=== PATIENT | male | born 1940 | race American Indian/Alaskan Native ===

== ENCOUNTER 2017-04-07 17:22 | Inpatient (IN) | payer OTHER, MEDICARE ==
[2017-04-07] MEDS ORDERED: Sodium Chloride 0.9% 500 ML IV ONE (18:45)
[2017-04-07 19:09] LABS: BASO % 0.2 % (0.0-2.0); EOS # 0.1 K/uL (0.0-0.7); EOS % 0.9 % (0.0-4.0); HEMATOCRIT 39.3 % (35.0-51.0); LYMPH # 1.4 K/uL (1.0-4.3); LYMPH % 12.6 % (20.0-40.0); MEAN CORPUSCULAR HEMOGLOBIN 29.1 pg (27.0-31.0); MEAN CORPUSCULAR HGB CONC 34.3 g/dL (33.0-37.0); MEAN PLATELET VOLUME 10.2 fL (7.2-11.7); MONO # 0.9 K/uL (0.0-0.8); MONO % 8.1 % (0.0-10.0); NRBC % 0.1 % (0.0-2.0); RED CELL DISTRIBUTION WIDTH 13.7 % (11.5-14.5); WHITE BLOOD COUNT 11.3 K/uL (4.8-10.8)
[2017-04-07 19:12] LABS: MEAN CELL VOLUME 84.9 fL (80.0-94.0)
[2017-04-07 19:16] LABS: CHLORIDE 95 mmol/L (98-107)
[2017-04-07 19:17] LABS: POTASSIUM 3.7 mmol/L (3.6-5.2); SODIUM 134 mmol/L (132-148)
[2017-04-07 19:19] LABS: ALB/GLOB RATIO 1.3 (1.0-2.1); ALKALINE PHOSPHATASE 106 U/L (38-126); ALT/SGPT 50 U/L (21-72); AST/SGOT 23 U/L (17-59); BILIRUBIN,TOTAL 1.2 mg/dL (0.2-1.3); BLOOD UREA NITROGEN 16 mg/dL (9-20); CARBON DIOXIDE 27 mmol/L (22-30); GFR AFRICAN-AMERICAN > 60; TOTAL PROTEIN 7.6 g/dL (6.3-8.3)
[2017-04-07 19:20] LABS: CALCIUM 8.6 mg/dl (8.6-10.4); GLUCOSE,RANDOM 95 mg/dL (75-110)
[2017-04-07 19:22] LABS: URINE BACTERIA RARE (<OCC); URINE BILIRUBIN NEGATIVE (NEGATIVE); URINE BLOOD NEGATIVE (NEGATIVE); URINE COLOR Amber (YELLOW); URINE GLUCOSE (UA) NORMAL (Normal); URINE KETONE 1+ mg/dL (NEGATIVE); URINE LEUKOCYTE ESTERASE NEG Leu/uL (Negative); URINE PROTEIN 2+ mg/dL (NEGATIVE); WBC URINE 2 /hpf (0-5)
[2017-04-07 19:35] LABS: RBC URINE 4 /hpf (0-3)
[2017-04-07] MEDS ORDERED: Iodixanol 320 MG/ML 100 ML BOTTLE IV ONE (20:30)
--- NOTE | 2017-04-07 20:31 | C.PDOC ---
History Of Present Illness 76 year old male sent to the ED by his PMD Dr. Edith Sheldon for constant LLQ pain that sometimes radiates to his left back since Friday. Patient denies fever, dysuria, hematuria, nausea, vomiting, diarrhea, or prior episodes of similar kind of pain. PMD Dr. Vee Time Seen by Provider: 04/07/17 18:17 Chief Complaint (Nursing): Abdominal Pain History Per: Patient History/Exam Limitations: no limitations Onset/Duration Of Symptoms: Days Current Symptoms Are (Timing): Gone Severity: Mild Location Of Pain/Discomfort: LLQ Radiation Of Pain To:: Back (Occasional) Quality Of Discomfort: "Pain" Associated Symptoms: Back Pain, Urinary Symptoms. denies: Fever, Nausea, Vomiting, Diarrhea Exacerbating Factors: None Alleviating Factors: None Recent travel outside of the [place]: No Additional History Per: Patient Past Medical History Reviewed: Historical Data, Nursing Documentation, Vital Signs Vital Signs: Last Vital Signs Temp 98.1 F 04/11/17 07:52 Pulse 77 04/11/17 07:52 Resp 20 04/11/17 07:52 BP 133/72 04/11/17 07:52 Pulse Ox 97 04/11/17 07:52 - Medical History PMH: No Chronic Diseases Surgical History: No Surg Hx Family History: States: No Known Family Hx - Social History Hx Alcohol Use: No Hx Substance Use: No Review Of Systems Except As Marked, All Systems Reviewed And Found Negative. Constitutional: Negative for: Fever, Chills Cardiovascular: Negative for: Chest Pain, Palpitations Respiratory: Negative for: Shortness of Breath Gastrointestinal: Positive for: Abdominal Pain. Negative for: Nausea, Vomiting , Diarrhea Genitourinary: Negative for: Dysuria, Hematuria Musculoskeletal: Positive for: Back Pain (Occasional radiation) Physical Exam - Physical Exam Appears: Well, Non-toxic, No Acute Distress Skin: Normal Color, Warm, Dry Oral Mucosa: Moist Neck: Supple Cardiovascular: Rhythm Regular Respiratory: Normal Breath Sounds, No Accessory Muscle Use, No Rales, No Rhonchi , No Wheezing Gastrointestinal/Abdominal: Bowel Sounds, Soft, Tenderness (LLQ TTP), Guarding, No Other ((-) Mcburney's ) Back: No CVA Tenderness Extremity: Normal ROM, No Pedal Edema, No Swelling Neurological/Psych: Oriented x3 Gait: Steady ED Course And Treatment - Laboratory Results Result Diagrams: 04/11/17 07:14 04/11/17 07:14 O2 Sat by Pulse Oximetry: 98 (On RA) Pulse Ox Interpretation: Normal - CT Scan/US CT ABD/PELVIS Other Rad Studies (CT/US): Read By Radiologist, Radiology Report Reviewed CT/US Interpretation: Name: RINA PRADO Age: 76Years M Date: 04/07/2017. SSN: [id number] : 1940. Study: CT ABDOMEN/PELVIS W Requesting Physician: NATHEN COREAS. Images: 506. Addl Studies: Provided Clinical History: LLQ PAIN, R/O DIVERTICULITIS. CONFIDENTIALITY STATEMENT. This transmission is confidential and is intended to be a privileged communication. It is intended only for the use of the addressee. Access to this. message by anyone else is unauthorized. If you are not the intended recipient, any disclosure, copying, distribution or any action taken, or omitted to. be taken in reliance on it is prohibited and may be unlawful. If you received this communication in error, please notify us by telephone, so that return. of this document to us can be arranged. Page 1 of 3. Addendum created by Nany Hopper MD on 04/07/2017 10:27 PM Eastern Time ( [place]). THIS REPORT CONTAINS FINDINGS THAT MAY BE CRITICAL TO PATIENT CARE. The findings. were received by NATHEN COREAS at 10:27 PM EST on 2016. Initial Report created on 04/07/2017 10:22 PM Eastern Time ([place]) . EXAM: CT Abdomen and Pelvis With Intravenous Contrast. CLINICAL HISTORY: 76 years old, male; Pain; Abdominal pain; Generalized; Additional info: Llq pain , R/O diverticulitis. TECHNIQUE: Axial computed tomography images of the abdomen and pelvis with intravenous contrast. All CT. scans at this facility use one or more dose reduction techniques, viz.: automated exposure control;. ma/kV adjustment per patient size (including targeted exams where dose is matched to indication; i.e. head); or iterative reconstruction technique. Coronal and sagittal reformatted images were created and reviewed. CONTRAST: 100 mL of visipaque administered intravenously. COMPARISON: No relevant prior studies available. [facility] Report [id number]. Name: RINA PRADO Age: 76Years M Date: 04/07/2017. SSN: [id number] : 1940. Study: CT ABDOMEN/PELVIS W Requesting Physician: NATHEN COREAS. Images: 506. Addl Studies: Provided Clinical History: LLQ PAIN, R/O DIVERTICULITIS. CONFIDENTIALITY STATEMENT. This transmission is confidential and is intended to be a privileged communication. It is intended only for the use of the addressee. Access to this. message by anyone else is unauthorized. If you are not the intended recipient, any disclosure, copying, distribution or any action taken, or omitted to. be taken in reliance on it is prohibited and may be unlawful. If you received this communication in error, please notify us by telephone, so that return. of this document to us can be arranged. Page 2 of 3. FINDINGS: Lower thorax: The bilateral lung bases are clear. ABDOMEN: Liver: Steatosis. Indeterminate focus of decreased attenuation within segment 6 of the liver (series 3,. image 61) for which dedicated ultrasound versus contrast-enhanced MRI is recommended with liver. mass protocol. Gallbladder and bile ducts: The gallbladder is minimally distended, without calcified stones. No. significant intra- or extrahepatic biliary ductal dilation. Pancreas: Enhances homogeneously. No ductal dilation. No discrete mass. Spleen : No acute findings. Adrenals: No acute findings. Kidneys and ureters: No acute findings. No hydronephrosis or renal calculi. No discrete solid mass. PELVIS: Bladder: Moderate bladder wall thickening, possibly related to underdistention. Reproductive: No acute findings. Appendix: The air filled appendix is of normal caliber (series 3, image 116) . ABDOMEN and PELVIS: Stomach and bowel: No obstruction. Moderate mural thickening within the sigmoid colon, with a. contained perforation (series 601, image 48) without a drainable fluid collection. Fat-containing left. inguinal hernia. Peritoneum: As above. Lymph nodes: Multiple enlarged lymph nodes within the pelvis, possibly reactive. Vasculature: Calcified atherosclerotic disease. Bones: No acute fracture. [facility] [id number]. Name: RINA PRADO Age: 76Years M Date: 04/07/2017. SSN: [id number] : 1940. Study: CT ABDOMEN/PELVIS W Requesting Physician: NATHEN COREAS. Images: 506. Addl Studies: Provided Clinical History: LLQ PAIN, R/O DIVERTICULITIS. CONFIDENTIALITY STATEMENT. This transmission is confidential and is intended to be a privileged communication. It is intended only for the use of the addressee. Access to this. message by anyone else is unauthorized. If you are not the intended recipient, any disclosure, copying, distribution or any action taken, or omitted to. be taken in reliance on it is prohibited and may be unlawful. If you received this communication in error, please notify us by telephone, so that return. of this document to us can be arranged. Page 3 of 3. IMPRESSION: Findings within the sigmoid colon most consistent with acute diverticulitis with a contained perforation,. without a drainable fluid collection. Follow up to resolution is recommended, as a malignancy may. have a similar appearance. Indeterminate focus within segment 6 of the liver for which dedicated ultrasound versus contrastenhanced. MRI is recommended (with liver mass protocol). Thank you for allowing us to participate in the care of your patient. Dictated and Authenticated by: Nany Hopper MD. 04/07/2017 10:22 PM Eastern Time ([place]) Progress Note: Plan: Blood work, UA, CT scan abd/pelvis. IV NS bolus given, patient did not want pain medication. IV Cipro + IV Flagyl ordered for acute diverticulitis. - Physician Consult Information Physician Contacted: Chapincito Arredondo Outcome Of Conversation: Discussed patient with hospitalist, agrees with admission to service for acute diverticulitis. Dr. Salazar target aircraft controller surgeon consulted - resident spoken with and aware. Disposition - Disposition Disposition: HOSPITALIZED Disposition Time: 22:30 Condition: STABLE - Clinical Impression Clinical Impression: Diverticulitis, Perforation bowel - Scribe Statement The provider has reviewed the documentation as recorded by the Scribe Chauncey Tovar All medical record entries made by the Scribe were at my direction and personally dictated by me. I have reviewed the chart and agree that the record accurately reflects my personal performance of the history, physical exam, medical decision making, and the department course for this patient. I have also personally directed, reviewed, and agree with the discharge instructions and disposition. Decision To Admit - Pt Status Changed To: Hospital Disposition Of: Inpatient - Admit Certification Admit to Inpatient:: After my assessment, the patient will require hospitalization for at least two midnights. This is because of the severity of symptoms shown, intensity of services needed, and/or the medical risk in this patient being treated as an outpatient. - InPatient: Physician Admission Certification:: see notes - . Bed Request Type: Regular Admitting Physician: Chapincito Arredondo Patient Diagnosis: Diverticulitis, Perforation bowel
--- NOTE | 2017-04-07 22:22 | CT ---
EXAM: CT Abdomen and Pelvis With Intravenous Contrast CLINICAL HISTORY: 76 years old, male; Pain; Abdominal pain; Generalized; Additional info: Llq pain, R/O diverticulitis TECHNIQUE: Axial computed tomography images of the abdomen and pelvis with intravenous contrast. All CT scans at this facility use one or more dose reduction techniques, viz.: automated exposure control; ma/kV adjustment per patient size (including targeted exams where dose is matched to indication; i.e. head); or iterative reconstruction technique. Coronal and sagittal reformatted images were created and reviewed. CONTRAST: 100 mL of visipaque administered intravenously. COMPARISON: No relevant prior studies available. FINDINGS: Lower thorax: The bilateral lung bases are clear. ABDOMEN: Liver: Steatosis. Indeterminate focus of decreased attenuation within segment 6 of the liver (series 3, image 61) for which dedicated ultrasound versus contrast-enhanced MRI is recommended with liver mass protocol. Gallbladder and bile ducts: The gallbladder is minimally distended, without calcified stones. No significant intra- or extrahepatic biliary ductal dilation. Pancreas: Enhances homogeneously. No ductal dilation. No discrete mass. Spleen: No acute findings. Adrenals: No acute findings. Kidneys and ureters: No acute findings. No hydronephrosis or renal calculi. No discrete solid mass. PELVIS: Bladder: Moderate bladder wall thickening, possibly related to underdistention. Reproductive: No acute findings. Appendix: The air filled appendix is of normal caliber (series 3, image 116) . ABDOMEN and PELVIS: Stomach and bowel: No obstruction. Moderate mural thickening within the sigmoid colon, with a contained perforation (series 601, image 48) without a drainable fluid collection. Fat-containing left inguinal hernia. Peritoneum: As above. Lymph nodes: Multiple enlarged lymph nodes within the pelvis, possibly reactive. Vasculature: Calcified atherosclerotic disease. Bones: No acute fracture. IMPRESSION: Findings within the sigmoid colon most consistent with acute diverticulitis with a contained perforation, without a drainable fluid collection. Follow up to resolution is recommended, as a malignancy may have a similar appearance. Indeterminate focus within segment 6 of the liver for which dedicated ultrasound versus contrast-enhanced MRI is recommended (with liver mass protocol).
[2017-04-07] MEDS ORDERED: Ciprofloxacin 400mg/200ml D5W 400 MG/200 ML BAG IV STA (22:25)
[2017-04-07] MEDS ORDERED: metroNIDAZOLE IV 500 mg/100 ml 500 MG/100 ML BAG IVPB STA (22:25)
[2017-04-07] MEDS ORDERED: Ciprofloxacin 400mg/200ml D5W 400 MG/200 ML BAG IVPB ONE (22:51)
[2017-04-07] MEDS ORDERED: metroNIDAZOLE IV 500 mg/100 ml 500 MG/100 ML BAG ONE (22:51)
--- NOTE | 2017-04-07 23:15 | CP.PCM.HP ---
Addendum entered and electronically signed by Cal Cool DO 04/08/17 04:39: Addendum to plan: Disregard Sepsis - pt does not meet criteria of WBC > 12 Addition to plan: Elevated BP Pt denies hx of HTN, possibly due to pain/stress Currently above diabetic BP goal Pt unsure of home medications - family will bring in tomorrow Consider starting TOMAS/ARB if pressures remain elevated, and pt not already on one Original Note: <Cal Cool - Last Filed: 04/08/17 01:06> History of Present Illness - History of Present Illness History of Present Illness: CC: "My belly hurts down low on the left" HPI: Patient is a 76 year old AA male, with PMHx of constipation, type two diabetes mellitus and glaucoma, who presents to [facility] for abdominal pain at direction of his PMD. Patient reports pain began on Friday while he was at work , and is located in his LLQ with occasional radiation to his lower back. He states the pain originally on Friday would come and go with worst severity as "3 /10." However over the weekend and into Friday the pain gradually became constant and was 8-9/10 this afternoon. He describes the pain as a "dull, aching pain that becomes sharp when you touch it" and admits to "feeling like something is in there." Patient reports long history of constipation, and attempted to ameliorate symptoms by giving himself a fleet enema. He states he moves his bowels "every 2-3 days" and has to really strain to void. He admits last BM was on , and denies blood in stool/toilet paper/or toilet bowl. He admits passing gas today. Patient reports seeing Dr. Son as GI, who performed last colonoscopy in 2016, which showed diverticula. He admits feeling hungry, but states he has not been eating much "because he does not want to make the pain worse." Patient denies any fever, chills, dysuria, hematuria, hematochezia, nausea, vomit, diarrhea, weight loss, or prior episodes of similar kind of pain. Patient denies any trauma to the area or lifting heavy object at work. PMD: Dr. Mahnaz Sheldon GI: Dr. 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 absent: Bloating, Diarrhea, Hematemesis, Hematochezia, Nausea, Vomiting - Genitourinary Genitourinary: absent: Difficulty Urinating, Dysuria - Musculoskeletal Musculoskeletal: absent: Back Pain, Numbness, Tingling - Integumentary Integumentary: absent: Dry Skin, Wounds - Neurological Neurological: absent: Numbness, Tingling, Weakness - Psychiatric Psychiatric: absent: Anxiety, Depression - Endocrine Endocrine: absent: Polydipsia, Polyphagia, Polyuria Past Patient History - Past Social History Smoking Status: Never Smoked - ENDOCRINE/METABOLIC Hx Diabetes Mellitus Type 2: Yes - PSYCHIATRIC Hx Substance Use: No - SURGICAL HISTORY Hx Surgeries: No - ANESTHESIA Hx Anesthesia: No Meds Allergies/Adverse Reactions: Allergies Allergy/AdvReac Type Severity Reaction Status Date / Time No Known Allergies Allergy Unverified 06/24/13 10:50 Physical Exam - Constitutional Appears: Non-toxic, No Acute Distress - Head Exam Head Exam: ATRAUMATIC, NORMOCEPHALIC - Eye Exam Eye Exam: EOMI, Normal appearance. absent: Scleral icterus Pupil Exam: PERRL - ENT Exam ENT Exam: Mucous Membranes Moist - Respiratory Exam Respiratory Exam: Clear to Auscultation Bilateral, NORMAL BREATHING PATTERN. absent: Rales, Rhonchi, Wheezes - Cardiovascular Exam Cardiovascular Exam: Tachycardia, +S1, +S2 - GI/Abdominal Exam GI & Abdominal Exam: Hernia (left inguinal), Normal Bowel Sounds, Soft, Tenderness (mild LLQ). absent: Distended, Guarding, Mass, Rigid Additional comments: left inguinal hernia appreciated Negative mcburney's/psoas sign/rovsing - Rectal Exam Rectal Exam: absent: Black Stool, Bloody Stool Additional comments: Hemoccult performed at bedside: negative - Extremities Exam Extremities exam: Positive for: normal inspection, pedal pulses present. Negative for: calf tenderness, pedal edema - Back Exam Back exam: absent: CVA tenderness (L), CVA tenderness (R) - Neurological Exam Neurological exam: Alert, Oriented x3 - Psychiatric Exam Psychiatric exam: Normal Affect, Normal Mood - Skin Skin Exam: Normal Color, Warm Results - Vital Signs Recent Vital Signs: Last Vital Signs Temp 98.8 F 04/07/17 22:23 Pulse 97 H 04/07/17 22:23 Resp 20 04/07/17 22:23 BP 161/83 H 04/07/17 22:23 Pulse Ox 98 04/07/17 23:03 - Labs Result Diagrams: 04/07/17 19:04 04/07/17 19:04 Labs: Laboratory Results - last 24 hr 04/07/17 04/07/17 04/07/17 19:04 19:04 19:14 WBC 11.3 H RBC 4.63 Hgb 13.5 Hct 39.3 MCV 84.9 D MCH 29.1 MCHC 34.3 RDW 13.7 Plt Count 216 MPV 10.2 Neut % (Auto) 78.2 H Lymph % (Auto) 12.6 L [place] % (Auto) 8.1 Eos % (Auto) 0.9 Baso % (Auto) 0.2 Neut # 8.8 H Lymph # 1.4 [place] # 0.9 H Eos # 0.1 Baso # 0.0 Sodium 134 Potassium 3.7 Chloride 95 L Carbon Dioxide 27 Anion Gap 16 BUN 16 Creatinine 0.9 Est GFR ( Amer) > 60 Est GFR (Non-Af Amer) > 60 Random Glucose 95 Calcium 8.6 Total Bilirubin 1.2 AST 23 ALT 50 Alkaline Phosphatase 106 Total Protein 7.6 Albumin 4.2 Globulin 3.3 Albumin/Globulin Ratio 1.3 Lipase 16 L Urine Color Imelda Urine Clarity Hazy Urine pH 5.0 Ur Specific [place] 1.028 Urine Protein 2+ H Urine Glucose (UA) Normal Urine Ketones 1+ H Urine Blood Negative Urine Nitrate Negative Urine Bilirubin Negative Urine Urobilinogen 2.0 Ur Leukocyte Esterase Neg Urine WBC (Auto) 2 Urine RBC (Auto) 4 H Urine Bacteria Rare Hyaline Casts 6-10 H Assessment & Plan - Assessment and Plan (Free Text) Plan: Sepsis Criteria: HR>90, WBC 11.3 Source: Diverticulitis w perforation Lactate 0.8 Cipro 400mg IV Q12H Flagyl 500mg IV Q8H Morphine 2mg IV Q4H PRN Zofran 4mg IV Q4H PRN f/u Blood, Urine Culture Diverticulitis with perforation Admit to med/surg Afebrile, WBC: 11.3 NPO Diet Surgical consult: Dr. Salazar, help appreciated GI Medicare Sales Executive: Dr. Son CT A/P: acute diverticulitis of sigmoid colon with contained perforation, without a drainable fluid collection; fat containing left inguinal hernia Lipase 16 Cipro 400mg IV Q12H Flagyl 500mg IV Q8H Hemoccult negative at bedside - f/u fecal occult x 3 Leukocytosis WBC 11.3, with left shift, no bands Cipro 400mg IV Q12H Flagyl 500mg IV Q8H Type Two Diabetes Mellitus Home meds: Metformin 500mg PO BID, Glipizide (pt does not know dose) Pt received IV contrast, so hold Metformin x 48 hrs Pt NPO so holding both PO diabetes meds D5/1/2 NS @ 80cc/hr RADHA Accuchecks Hypoglycemia protocol Left inguinal hernia CT A/P: acute diverticulitis of sigmoid colon with contained perforation, without a drainable fluid collection; fat containing left inguinal hernia Liver Foci CT A/P: Indeterminate liver foci within segment 6 of liver for which US vs contrast MRI is recommended (with liver mass protocol) - f/u US Hx of glaucoma Pt unsure of eye drops, will bring from home Proteinuria UA: 2+ protein History of diabetes - pt unsure if on TOMAS inhibitor - will bring home meds Prophylaxis Heparin (Held at this time due to chance of emergent surgical procedure) SCDs Protonix 40mg IV Daily Will call pharmacy for meds as pt unsure Cal Cool PGY-2 Discussed with vinicius Reyes <Arredondo,[place] A - Last Filed: 04/08/17 06:32> Results - Vital Signs Recent Vital Signs: Last Vital Signs Temp 97.8 F 04/08/17 05:52 Pulse 89 04/08/17 05:52 Resp 20 04/08/17 05:52 BP 150/84 04/08/17 05:52 Pulse Ox 98 04/08/17 05:52 - Labs Result Diagrams: 04/08/17 04:52 04/08/17 04:52 Labs: Laboratory Results - last 24 hr 04/07/17 04/07/17 04/07/17 19:04 19:04 19:14 WBC 11.3 H RBC 4.63 Hgb 13.5 Hct 39.3 MCV 84.9 D MCH 29.1 MCHC 34.3 RDW 13.7 Plt Count 216 MPV 10.2 Neut % (Auto) 78.2 H Lymph % (Auto) 12.6 L [place] % (Auto) 8.1 Eos % (Auto) 0.9 Baso % (Auto) 0.2 Neut # 8.8 H Lymph # 1.4 [place] # 0.9 H Eos # 0.1 Baso # 0.0 Neutrophils % (Manual) Band Neutrophils % Lymphocytes % (Manual) Monocytes % (Manual) Platelet Estimate pO2 VBG pH VBG pCO2 VBG HCO3 VBG Total CO2 VBG O2 Sat (Calc) VBG Base Excess VBG Potassium Glucose Lactate Sodium 134 Potassium 3.7 Chloride 95 L Carbon Dioxide 27 Anion Gap 16 BUN 16 Creatinine 0.9 Est GFR ( Amer) > 60 Est GFR (Non-Af Amer) > 60 POC Glucose (mg/dL) Random Glucose 95 Hemoglobin A1c Calcium 8.6 Phosphorus Magnesium Total Bilirubin 1.2 AST 23 ALT 50 Alkaline Phosphatase 106 Total Protein 7.6 Albumin 4.2 Globulin 3.3 Albumin/Globulin Ratio 1.3 Triglycerides Cholesterol LDL Cholesterol Direct HDL Cholesterol Lipase 16 L Free T4 Venous Blood Potassium Urine Color Imelda Urine Clarity Hazy Urine pH 5.0 Ur Specific [place] 1.028 Urine Protein 2+ H Urine Glucose (UA) Normal Urine Ketones 1+ H Urine Blood Negative Urine Nitrate Negative Urine Bilirubin Negative Urine Urobilinogen 2.0 Ur Leukocyte Esterase Neg Urine WBC (Auto) 2 Urine RBC (Auto) 4 H Urine Bacteria Rare Hyaline Casts 6-10 H 04/07/17 04/08/17 04/08/17 23:36 00:41 04:52 WBC 8.8 RBC 4.29 L Hgb 12.5 Hct 36.5 MCV 85.0 MCH 29.1 MCHC 34.3 RDW 13.8 Plt Count 200 MPV 10.1 Neut % (Auto) 80.7 H Lymph % (Auto) 9.2 L [place] % (Auto) 8.6 Eos % (Auto) 1.1 Baso % (Auto) 0.4 Neut # 7.1 H Lymph # 0.8 L [place] # 0.8 Eos # 0.1 Baso # 0.0 Neutrophils % (Manual) 87 H Band Neutrophils % 1 Lymphocytes % (Manual) 7 L Monocytes % (Manual) 5 Platelet Estimate Normal pO2 61 H VBG pH 7.39 VBG pCO2 39 L VBG HCO3 23.8 VBG Total CO2 24.8 VBG O2 Sat (Calc) 93.2 H VBG Base Excess -1.2 L VBG Potassium 3.3 L Glucose 112 H Lactate 0.8 Sodium 137.0 Potassium Chloride 105.0 Carbon Dioxide Anion Gap BUN Creatinine Est GFR ( Amer) Est GFR (Non-Af Amer) POC Glucose (mg/dL) 92 Random Glucose Hemoglobin A1c Calcium Phosphorus Magnesium Total Bilirubin AST ALT Alkaline Phosphatase Total Protein Albumin Globulin Albumin/Globulin Ratio Triglycerides Cholesterol LDL Cholesterol Direct HDL Cholesterol Lipase Free T4 Venous Blood Potassium 3.3 L Urine Color Urine Clarity Urine pH Ur Specific [place] Urine Protein Urine Glucose (UA) Urine Ketones Urine Blood Urine Nitrate Urine Bilirubin Urine Urobilinogen Ur Leukocyte Esterase Urine WBC (Auto) Urine RBC (Auto) Urine Bacteria Hyaline Casts 04/08/17 04/08/17 04/08/17 04:52 04:52 04:52 WBC RBC Hgb Hct MCV MCH MCHC RDW Plt Count MPV Neut % (Auto) Lymph % (Auto) [place] % (Auto) Eos % (Auto) Baso % (Auto) Neut # Lymph # [place] # Eos # Baso # Neutrophils % (Manual) Band Neutrophils % Lymphocytes % (Manual) Monocytes % (Manual) Platelet Estimate pO2 VBG pH VBG pCO2 VBG HCO3 VBG Total CO2 VBG O2 Sat (Calc) VBG Base Excess VBG Potassium Glucose Lactate Sodium 133 Potassium 3.5 L Chloride 98 Carbon Dioxide 24 Anion Gap 15 BUN 14 Creatinine 0.7 L Est GFR ( Amer) > 60 Est GFR (Non-Af Amer) > 60 POC Glucose (mg/dL) Random Glucose 152 H Hemoglobin A1c 8.8 H Calcium 8.2 L Phosphorus 3.4 Magnesium 1.8 Total Bilirubin 1.0 AST 23 ALT 48 Alkaline Phosphatase 98 Total Protein 7.5 Albumin 3.7 Globulin 3.9 Albumin/Globulin Ratio 0.9 L Triglycerides 83 Cholesterol 153 LDL Cholesterol Direct 102 HDL Cholesterol 27 L Lipase Free T4 1.19 Venous Blood Potassium Urine Color Urine Clarity Urine pH Ur Specific [place] Urine Protein Urine Glucose (UA) Urine Ketones Urine Blood Urine Nitrate Urine Bilirubin Urine Urobilinogen Ur Leukocyte Esterase Urine WBC (Auto) Urine RBC (Auto) Urine Bacteria Hyaline Casts Assessment & Plan - Date & Time Date: 04/08/17 (I have seen and examined the patient. I agree with the findings and plan of care as documented by Dr. Cool. Patient with diverticulitis and perf. Surgery consulted. Cipro and Flagyl. Monitor for signs and symptoms for sepsis. Check blood cultures. History of diabetes. NPO. D5 NS IVF. Monitor BS for hypoglycemia due to hypoglycemia and adjust IVF accordingly. Monitor for acute changes.) Time: 06:30 Attending/Attestation - Attestation I have personally seen and examined this patient.: Yes I have fully participated in the care of the patient.: Yes I have reviewed all pertinent clinical information: Yes
--- NOTE | 2017-04-07 23:29 | CP.PCM.CON ---
<Arti Stokes - Last Filed: 04/08/17 06:56> History of Present Illness - History of Present Illness History of Present Illness: GENERAL SURGERY CONSULT NOTE FOR DR. SALAZAR 76yo M with PMHx of DM presents to the ED with LLQ abdominal pain. the pain began on Friday and was severe, steady pain. The pain has gotten better since then. He saw his PMD Dr. Edith Sheldon in the office who sent him to the ED for possible diverticulitis. Patient denies nausea, vomiting, diarrhea. Last BM was yesterday after an enema. He did the enema because he thought constipation might be the cause of his pain. Patient states he is hungry and is requesting a diet. Patient ambulating in the halls of the ED. He refused pain medication in the ED. The patient denies ever having diverticulitis before. He had a colonoscopy last year at [facility] and was told he had "pockets on his colon" at that time. 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 of Systems - Review of Systems All systems: reviewed and no additional remarkable complaints except (as per HPI ) Past Patient History - Past Social History Smoking Status: Never Smoked - ENDOCRINE/METABOLIC Hx Diabetes Mellitus Type 2: Yes - PSYCHIATRIC Hx Substance Use: No - SURGICAL HISTORY Hx Surgeries: No - ANESTHESIA Hx Anesthesia: No Meds Allergies/Adverse Reactions: Allergies Allergy/AdvReac Type Severity Reaction Status Date / Time No Known Allergies Allergy Unverified 06/24/13 10:50 - Medications Medications: Current Medications Ciprofloxacin (Cipro 400mg/200ml Dsw) 400 mg in 200 mls @ 133.333 mls/hr IV STAT STA Stop: 04/07/17 23:54 Physical Exam - Constitutional Appears: Well, Non-toxic, No Acute Distress - Head Exam Head Exam: ATRAUMATIC, NORMAL INSPECTION - Eye Exam Eye Exam: EOMI, Normal appearance - Respiratory Exam Respiratory Exam: NORMAL BREATHING PATTERN. absent: Respiratory Distress - Cardiovascular Exam Cardiovascular Exam: Tachycardia (mild), +S1, +S2 - GI/Abdominal Exam GI & Abdominal Exam: Hernia (left inguinal hernia), Soft, Tenderness (mild tenderness LLQ). absent: Distended, Firm, Guarding, Rebound, Rigid - Extremities Exam Additional comments: No LE edema - Neurological Exam Neurological exam: Alert, CN II-XII Intact, Oriented x3 - Psychiatric Exam Psychiatric exam: Normal Affect, Normal Mood - Skin Skin Exam: Dry, Normal Color, Warm Results - Vital Signs Recent Vital Signs: Last Vital Signs Temp 98.8 F 04/07/17 22:23 Pulse 97 H 04/07/17 22:23 Resp 20 04/07/17 22:23 BP 161/83 H 04/07/17 22:23 Pulse Ox 98 04/07/17 23:22 - Labs Result Diagrams: 04/07/17 19:04 04/07/17 19:04 Labs: Laboratory Results - last 24 hr 04/07/17 04/07/17 04/07/17 19:04 19:04 19:14 WBC 11.3 H RBC 4.63 Hgb 13.5 Hct 39.3 MCV 84.9 D MCH 29.1 MCHC 34.3 RDW 13.7 Plt Count 216 MPV 10.2 Neut % (Auto) 78.2 H Lymph % (Auto) 12.6 L [place] % (Auto) 8.1 Eos % (Auto) 0.9 Baso % (Auto) 0.2 Neut # 8.8 H Lymph # 1.4 [place] # 0.9 H Eos # 0.1 Baso # 0.0 Sodium 134 Potassium 3.7 Chloride 95 L Carbon Dioxide 27 Anion Gap 16 BUN 16 Creatinine 0.9 Est GFR ( Amer) > 60 Est GFR (Non-Af Amer) > 60 Random Glucose 95 Calcium 8.6 Total Bilirubin 1.2 AST 23 ALT 50 Alkaline Phosphatase 106 Total Protein 7.6 Albumin 4.2 Globulin 3.3 Albumin/Globulin Ratio 1.3 Lipase 16 L Urine Color Imelda Urine Clarity Hazy Urine pH 5.0 Ur Specific [place] 1.028 Urine Protein 2+ H Urine Glucose (UA) Normal Urine Ketones 1+ H Urine Blood Negative Urine Nitrate Negative Urine Bilirubin Negative Urine Urobilinogen 2.0 Ur Leukocyte Esterase Neg Urine WBC (Auto) 2 Urine RBC (Auto) 4 H Urine Bacteria Rare Hyaline Casts 6-10 H Assessment & Plan - Assessment and Plan (Free Text) Assessment: 76yo M with PMHx of DM presents with LLQ abdominal pain and was found to have diverticulitis with contained perforation - Afebrile, VSS - Mild leukocytosis WBC 11.3, will recheck CBC in AM - CT: acute diverticulitis of sigmoid colon with contained perforation, without a drainable fluid collection; fat containing left inguinal hernia - NPO, bowel rest - IV fluids - IV Abx: Cipro & Flagyl - Serial abdominal exams - Will discuss plan with Dr. Martin Stokes PGY-3 <Juan M Salazar - Last Filed: 04/09/17 19:57> Meds - Medications Medications: Current Medications Docusate Sodium (Colace) 100 mg PO BID [facility] Last Admin: 04/09/17 18:21 Dose: 100 mg Ciprofloxacin (Cipro 400mg/200ml Dsw) 400 mg in 200 mls @ 133 mls/hr IVPB Q12H [facility] Last Admin: 04/09/17 11:27 Dose: 133 mls/hr Metronidazole (Flagyl) 500 mg in 100 mls @ 100 mls/hr IVPB Q8 [facility] Last Admin: 04/09/17 14:45 Dose: 100 mls/hr Sodium Chloride (Sodium Chloride 0.9%) 1,000 mls @ 100 mls/hr IV .Q10H [facility] Last Admin: 04/09/17 18:35 Dose: 100 mls/hr Insulin Human Regular (Novolin R) 0 unit SC ACHS [facility] PRN Reason: Protocol Last Admin: 04/09/17 18:25 Dose: Not Given Lisinopril (Zestril) 2.5 mg PO DAILY [facility] Morphine Sulfate (Morphine) 2 mg IVP Q4 PRN PRN Reason: Pain, moderate (4-7) [id number] Ethyl Esters (Lovaza) 1 gm PO BID [facility] Last Admin: 04/09/17 18:22 Dose: 1 gm Ondansetron HCl (Zofran Inj) 4 mg IVP Q6 PRN PRN Reason: Nausea/Vomiting Pantoprazole Sodium (Protonix Inj) 40 mg IVP DAILY [facility] Potassium Chloride (K-Dur 20 Meq Er Tab) 40 meq PO Q2H [facility] Stop: 04/09/17 21:46 Saccharomyces Boulardii (Florastor) 250 mg PO BID [facility] Last Admin: 04/09/17 18:21 Dose: 250 mg Results - Vital Signs Recent Vital Signs: Last Vital Signs Temp 97.6 F 04/09/17 15:00 Pulse 84 04/09/17 15:00 Resp 20 04/09/17 15:00 BP 141/69 04/09/17 15:00 Pulse Ox 98 04/09/17 15:00 - Labs Result Diagrams: 04/09/17 07:49 04/09/17 16:42 Labs: Laboratory Results - last 24 hr 04/08/17 04/09/17 04/09/17 21:01 07:11 07:11 WBC RBC Hgb Hct MCV MCH MCHC RDW Plt Count MPV Neut % (Auto) Lymph % (Auto) [place] % (Auto) Eos % (Auto) Baso % (Auto) Neut # Lymph # [place] # Eos # Baso # Neutrophils % (Manual) Band Neutrophils % Lymphocytes % (Manual) Monocytes % (Manual) Eosinophils % (Manual) Platelet Estimate RBC Morphology Sodium Potassium Chloride Carbon Dioxide Anion Gap BUN Creatinine Est GFR ( Amer) Est GFR (Non-Af Amer) POC Glucose (mg/dL) 291 H 260 H 260 H Random Glucose Calcium Magnesium Total Bilirubin AST ALT Alkaline Phosphatase Total Protein Albumin Globulin Albumin/Globulin Ratio 04/09/17 04/09/17 04/09/17 07:49 11:19 13:52 WBC 7.8 RBC 4.51 Hgb 13.3 Hct 38.5 MCV 85.3 MCH 29.5 MCHC 34.6 RDW 13.7 Plt Count 216 MPV 10.0 Neut % (Auto) 80.6 H Lymph % (Auto) 9.2 L [place] % (Auto) 8.8 Eos % (Auto) 1.1 Baso % (Auto) 0.3 Neut # 6.3 Lymph # 0.7 L [place] # 0.7 Eos # 0.1 Baso # 0.0 Neutrophils % (Manual) 78 H Band Neutrophils % 1 Lymphocytes % (Manual) 7 L Monocytes % (Manual) 13 H Eosinophils % (Manual) 1 Platelet Estimate Normal RBC Morphology Normal Sodium Potassium Chloride Carbon Dioxide Anion Gap BUN Creatinine Est GFR ( Amer) Est GFR (Non-Af Amer) POC Glucose (mg/dL) > 500 H* Random Glucose Calcium Magnesium 1.7 Total Bilirubin AST ALT Alkaline Phosphatase Total Protein Albumin Globulin Albumin/Globulin Ratio 04/09/17 04/09/17 16:04 16:42 WBC RBC Hgb Hct MCV MCH MCHC RDW Plt Count MPV Neut % (Auto) Lymph % (Auto) [place] % (Auto) Eos % (Auto) Baso % (Auto) Neut # Lymph # [place] # Eos # Baso # Neutrophils % (Manual) Band Neutrophils % Lymphocytes % (Manual) Monocytes % (Manual) Eosinophils % (Manual) Platelet Estimate RBC Morphology Sodium 136 Potassium 3.3 L Chloride 98 Carbon Dioxide 29 Anion Gap 13 BUN 7 L Creatinine 0.7 L Est GFR ( Amer) > 60 Est GFR (Non-Af Amer) > 60 POC Glucose (mg/dL) 89 Random Glucose 74 L Calcium 8.3 L Magnesium Total Bilirubin 0.6 AST 17 D ALT 39 Alkaline Phosphatase 96 Total Protein 7.8 Albumin 3.7 Globulin 4.1 H Albumin/Globulin Ratio 0.9 L Attending/Attestation - Attestation I have personally seen and examined this patient.: Yes I have fully participated in the care of the patient.: Yes I have reviewed all pertinent clinical information: Yes Notes (Text): Pt was seen and examined at bedside Agree with above note and assessment Pt is with sigmoid diverticulitis Mild abdominal tenderness Labs and radiology reviewed Clear liquid diet repeat CBC in am C.w IV antibitics Plan d.w pt in detail. Risk and benefit explained in detail.
[2017-04-08 00:44] LABS: VENOUS BLOOD GAS BASE EXCESS -1.2 mmol/L (0.0-2.0); VENOUS BLOOD GAS PCO2 39 mmHg (40-60); VENOUS BLOOD PH 7.39 (7.32-7.43)
[2017-04-08] MEDS: Dextrose 5%/0.45% NS 1,000 ML IV SCH ×2 (01:09→15:31)
[2017-04-08 05:02] LABS: BASO % 0.4 % (0.0-2.0); EOS # 0.1 K/uL (0.0-0.7); EOS % 1.1 % (0.0-4.0); HEMATOCRIT 36.5 % (35.0-51.0); LYMPH # 0.8 K/uL (1.0-4.3); LYMPH % 9.2 % (20.0-40.0); MEAN CORPUSCULAR HEMOGLOBIN 29.1 pg (27.0-31.0); MEAN CORPUSCULAR HGB CONC 34.3 g/dL (33.0-37.0); MEAN PLATELET VOLUME 10.1 fL (7.2-11.7); MONO # 0.8 K/uL (0.0-0.8); MONO % 8.6 % (0.0-10.0); PLATELET COUNT 200 K/uL (130-400); RED CELL DISTRIBUTION WIDTH 13.8 % (11.5-14.5); WHITE BLOOD COUNT 8.8 K/uL (4.8-10.8)
[2017-04-08 05:06] LABS: CHLORIDE 98 mmol/L (98-107); POTASSIUM 3.5 mmol/L (3.6-5.2); SODIUM 133 mmol/L (132-148)
[2017-04-08 05:08] LABS: CARBON DIOXIDE 24 mmol/L (22-30); CHOLESTEROL 153 mg/dL (0-199); GFR AFRICAN-AMERICAN > 60
[2017-04-08 05:09] LABS: ALB/GLOB RATIO 0.9 (1.0-2.1); ALKALINE PHOSPHATASE 98 U/L (38-126); ALT/SGPT 48 U/L (21-72); AST/SGOT 23 U/L (17-59); BLOOD UREA NITROGEN 14 mg/dL (9-20); CALCIUM 8.2 mg/dl (8.6-10.4); GLUCOSE,RANDOM 152 mg/dL (75-110); PHOSPHOROUS 3.4 mg/dL (2.5-4.5); TOTAL PROTEIN 7.5 g/dL (6.3-8.3)
[2017-04-08 05:10] LABS: MAGNESIUM 1.8 mg/dL (1.6-2.3)
[2017-04-08 06:27] LABS: NEUTROPHIL 87 % (50-75); TOTAL CELLS COUNTED 100
[2017-04-08] MEDS ORDERED: metroNIDAZOLE IV 500 mg/100 ml 500 MG/100 ML BAG ONE (06:30)
[2017-04-08] MEDS: metroNIDAZOLE IV 500 mg/100 ml 500 MG/100 ML BAG IVPB SCH ×3 (06:33→21:32)
[2017-04-08] MEDS: (Novolin R) Insulin Human Regular 100 units/ml vial SC SCH ×4 (08:30→22:25)
--- NOTE | 2017-04-08 10:31 | CP.PCM.CON ---
History of Present Illness - History of Present Illness History of Present Illness: This is a 76 year old man admitted 04/07/2017 for abdominal pain. Patient is known to me from the office. He has had sigmoid diverticulosis and adenomatous colon polyps on colonoscopy done in 2009 and, most recently, 2015. He was in his usual state of health until Friday, three days prior to admission, when he noted sudden onset of lower abdominal pain, LLQ more than RLQ , vague, constant, not clearly related to defecation. The bowel movements were irregular, varying in size from small to large, and in consistency from soft to firm. He denies having rectal bleeding. The pain persisted, and he consulted his primary care physician, who instructed him to come to the ER. Evaluation in the ER included a CT scan, which showed diverticulitis with a contained perforation. He further denies having nausea, vomiting, difficulty swallowing, heartburn, and loss of appetite. He has lost 15 pounds in the past year. Review of Systems - Review of Systems All systems: reviewed and no additional remarkable complaints except - Constitutional Constitutional: absent: Chills, Fever - Cardiovascular Cardiovascular: absent: Chest Pain, Dyspnea - Respiratory Respiratory: absent: Cough, Wheezing - Gastrointestinal Gastrointestinal: Abdominal Pain, Constipation, Diarrhea. absent: Dysphagia, Heartburn, Hematochezia, Nausea, Vomiting - Genitourinary Genitourinary: absent: Difficulty Urinating Past Patient History - Past Social History Smoking Status: Never Smoked - ENDOCRINE/METABOLIC Hx Diabetes Mellitus Type 2: Yes - PSYCHIATRIC Hx Substance Use: No - SURGICAL HISTORY Hx Surgeries: No - ANESTHESIA Hx Anesthesia: No Meds Allergies/Adverse Reactions: Allergies Allergy/AdvReac Type Severity Reaction Status Date / Time No Known Allergies Allergy Unverified 06/24/13 10:50 - Medications Medications: Current Medications Ciprofloxacin (Cipro 400mg/200ml Dsw) 400 mg in 200 mls @ 133 mls/hr IVPB Q12H JOHAN Metronidazole (Flagyl) 500 mg in 100 mls @ 100 mls/hr IVPB Q8 JOHAN Last Admin: 04/08/17 06:33 Dose: 100 mls/hr Dextrose/Sodium Chloride (Dextrose 5%/0.45% Ns 1000 Ml) 1,000 mls @ 80 mls/hr IV .[id number] [facility] Last Admin: 04/08/17 01:09 Dose: 80 mls/hr Insulin Human Regular (Novolin R) 0 unit SC ACHS JOHAN PRN Reason: Protocol Last Admin: 04/08/17 08:30 Dose: Not Given Morphine Sulfate (Morphine) 2 mg IVP Q4 PRN PRN Reason: Pain, moderate (4-7) Ondansetron HCl (Zofran Inj) 4 mg IVP Q4 PRN PRN Reason: Nausea/Vomiting Physical Exam - Constitutional Appears: No Acute Distress - Head Exam Head Exam: ATRAUMATIC, NORMOCEPHALIC - Eye Exam Eye Exam: EOMI, PERRL - Neck Exam Neck exam: Negative for: Lymphadenopathy, Thyromegaly - Respiratory Exam Respiratory Exam: NORMAL BREATHING PATTERN. absent: Rales, Rhonchi, Wheezes - Cardiovascular Exam Cardiovascular Exam: REGULAR RHYTHM, +S1, +S2. absent: Gallop, Rubs, Systolic Murmur - GI/Abdominal Exam GI & Abdominal Exam: Guarding, Soft, Tenderness. absent: Mass, Organomegaly Additional comments: LLQ tenderness to palpation with guarding - Rectal Exam Rectal Exam: Deferred - Extremities Exam Extremities exam: Negative for: calf tenderness, pedal edema Results - Vital Signs Recent Vital Signs: Last Vital Signs Temp 97.8 F 04/08/17 05:52 Pulse 89 04/08/17 05:52 Resp 20 04/08/17 05:52 BP 150/84 04/08/17 05:52 Pulse Ox 98 04/08/17 05:52 - Labs Result Diagrams: 04/08/17 04:52 04/08/17 04:52 Labs: Laboratory Results - last 24 hr 04/07/17 04/07/17 04/07/17 19:04 19:04 19:14 WBC 11.3 H RBC 4.63 Hgb 13.5 Hct 39.3 MCV 84.9 D MCH 29.1 MCHC 34.3 RDW 13.7 Plt Count 216 MPV 10.2 Neut % (Auto) 78.2 H Lymph % (Auto) 12.6 L [place] % (Auto) 8.1 Eos % (Auto) 0.9 Baso % (Auto) 0.2 Neut # 8.8 H Lymph # 1.4 [place] # 0.9 H Eos # 0.1 Baso # 0.0 Neutrophils % (Manual) Band Neutrophils % Lymphocytes % (Manual) Monocytes % (Manual) Platelet Estimate pO2 VBG pH VBG pCO2 VBG HCO3 VBG Total CO2 VBG O2 Sat (Calc) VBG Base Excess VBG Potassium Glucose Lactate Sodium 134 Potassium 3.7 Chloride 95 L Carbon Dioxide 27 Anion Gap 16 BUN 16 Creatinine 0.9 Est GFR ( Amer) > 60 Est GFR (Non-Af Amer) > 60 POC Glucose (mg/dL) Random Glucose 95 Hemoglobin A1c Calcium 8.6 Phosphorus Magnesium Total Bilirubin 1.2 AST 23 ALT 50 Alkaline Phosphatase 106 Total Protein 7.6 Albumin 4.2 Globulin 3.3 Albumin/Globulin Ratio 1.3 Triglycerides Cholesterol LDL Cholesterol Direct HDL Cholesterol Lipase 16 L Free T4 TSH 3rd Generation Venous Blood Potassium Urine Color Imelda Urine Clarity Hazy Urine pH 5.0 Ur Specific [place] 1.028 Urine Protein 2+ H Urine Glucose (UA) Normal Urine Ketones 1+ H Urine Blood Negative Urine Nitrate Negative Urine Bilirubin Negative Urine Urobilinogen 2.0 Ur Leukocyte Esterase Neg Urine WBC (Auto) 2 Urine RBC (Auto) 4 H Urine Bacteria Rare Hyaline Casts 6-10 H 04/07/17 04/08/17 04/08/17 23:36 00:41 04:52 WBC 8.8 RBC 4.29 L Hgb 12.5 Hct 36.5 MCV 85.0 MCH 29.1 MCHC 34.3 RDW 13.8 Plt Count 200 MPV 10.1 Neut % (Auto) 80.7 H Lymph % (Auto) 9.2 L [place] % (Auto) 8.6 Eos % (Auto) 1.1 Baso % (Auto) 0.4 Neut # 7.1 H Lymph # 0.8 L [place] # 0.8 Eos # 0.1 Baso # 0.0 Neutrophils % (Manual) 87 H Band Neutrophils % 1 Lymphocytes % (Manual) 7 L Monocytes % (Manual) 5 Platelet Estimate Normal pO2 61 H VBG pH 7.39 VBG pCO2 39 L VBG HCO3 23.8 VBG Total CO2 24.8 VBG O2 Sat (Calc) 93.2 H VBG Base Excess -1.2 L VBG Potassium 3.3 L Glucose 112 H Lactate 0.8 Sodium 137.0 Potassium Chloride 105.0 Carbon Dioxide Anion Gap BUN Creatinine Est GFR ( Amer) Est GFR (Non-Af Amer) POC Glucose (mg/dL) 92 Random Glucose Hemoglobin A1c Calcium Phosphorus Magnesium Total Bilirubin AST ALT Alkaline Phosphatase Total Protein Albumin Globulin Albumin/Globulin Ratio Triglycerides Cholesterol LDL Cholesterol Direct HDL Cholesterol Lipase Free T4 TSH 3rd Generation Venous Blood Potassium 3.3 L Urine Color Urine Clarity Urine pH Ur Specific [place] Urine Protein Urine Glucose (UA) Urine Ketones Urine Blood Urine Nitrate Urine Bilirubin Urine Urobilinogen Ur Leukocyte Esterase Urine WBC (Auto) Urine RBC (Auto) Urine Bacteria Hyaline Casts 04/08/17 04/08/17 04/08/17 04:52 04:52 04:52 WBC RBC Hgb Hct MCV MCH MCHC RDW Plt Count MPV Neut % (Auto) Lymph % (Auto) [place] % (Auto) Eos % (Auto) Baso % (Auto) Neut # Lymph # [place] # Eos # Baso # Neutrophils % (Manual) Band Neutrophils % Lymphocytes % (Manual) Monocytes % (Manual) Platelet Estimate pO2 VBG pH VBG pCO2 VBG HCO3 VBG Total CO2 VBG O2 Sat (Calc) VBG Base Excess VBG Potassium Glucose Lactate Sodium 133 Potassium 3.5 L Chloride 98 Carbon Dioxide 24 Anion Gap 15 BUN 14 Creatinine 0.7 L Est GFR ( Amer) > 60 Est GFR (Non-Af Amer) > 60 POC Glucose (mg/dL) Random Glucose 152 H Hemoglobin A1c 8.8 H Calcium 8.2 L Phosphorus 3.4 Magnesium 1.8 Total Bilirubin 1.0 AST 23 ALT 48 Alkaline Phosphatase 98 Total Protein 7.5 Albumin 3.7 Globulin 3.9 Albumin/Globulin Ratio 0.9 L Triglycerides 83 Cholesterol 153 LDL Cholesterol Direct 102 HDL Cholesterol 27 L Lipase Free T4 1.19 TSH 3rd Generation 1.10 Venous Blood Potassium Urine Color Urine Clarity Urine pH Ur Specific [place] Urine Protein Urine Glucose (UA) Urine Ketones Urine Blood Urine Nitrate Urine Bilirubin Urine Urobilinogen Ur Leukocyte Esterase Urine WBC (Auto) Urine RBC (Auto) Urine Bacteria Hyaline Casts 04/08/17 08:09 WBC RBC Hgb Hct MCV MCH MCHC RDW Plt Count MPV Neut % (Auto) Lymph % (Auto) [place] % (Auto) Eos % (Auto) Baso % (Auto) Neut # Lymph # [place] # Eos # Baso # Neutrophils % (Manual) Band Neutrophils % Lymphocytes % (Manual) Monocytes % (Manual) Platelet Estimate pO2 VBG pH VBG pCO2 VBG HCO3 VBG Total CO2 VBG O2 Sat (Calc) VBG Base Excess VBG Potassium Glucose Lactate Sodium Potassium Chloride Carbon Dioxide Anion Gap BUN Creatinine Est GFR ( Amer) Est GFR (Non-Af Amer) POC Glucose (mg/dL) 146 H Random Glucose Hemoglobin A1c Calcium Phosphorus Magnesium Total Bilirubin AST ALT Alkaline Phosphatase Total Protein Albumin Globulin Albumin/Globulin Ratio Triglycerides Cholesterol LDL Cholesterol Direct HDL Cholesterol Lipase Free T4 TSH 3rd Generation Venous Blood Potassium Urine Color Urine Clarity Urine pH Ur Specific [place] Urine Protein Urine Glucose (UA) Urine Ketones Urine Blood Urine Nitrate Urine Bilirubin Urine Urobilinogen Ur Leukocyte Esterase Urine WBC (Auto) Urine RBC (Auto) Urine Bacteria Hyaline Casts Assessment & Plan (1) Diverticulitis of colon with perforation Assessment and Plan: Patient was admitted with LLQ and was found to have diverticulitis with a contained perforation. Recommend antibiotics, NPO for now. Repeat CT scan later in the week. Status: Acute
--- NOTE | 2017-04-08 11:21 | US ---
HISTORY: liver foci within segment 6 of liver seen on CT COMPARISON: None. TECHNIQUE: Sonographic evaluation of the right upper quadrant of the abdomen. FINDINGS: LIVER: Measures 16 cm in length. Borderline increased echogenicity of the liver parenchyma. In the right hepatic lobe there is a echogenic lesion measuring 1.2 x 0.9 x 1.6 cm in size. This is the CT correlate. Without any known history of cancer, a solitary hemangioma is favored. A solitary mucinous adenocarcinoma can simulate this but this would be less likely without supportive history. No intrahepatic bile duct dilatation. GALLBLADDER: Gallbladder sludge present. No gallstones. COMMON BILE DUCT: Measures 4 mm. No stones. No dilatation. PANCREAS: Unremarkable as visualized. No mass. No ductal dilatation. RIGHT KIDNEY: Measures 10.74.8 x 4.8 cm in length. Normal echogenicity. No calculus, mass, or hydronephrosis. AORTA: No aneurysmal dilatation. IVC: Unremarkable. OTHER FINDINGS: None . IMPRESSION: Re- right hepatic lobe lesion. Without supportive cancer history, a benign hemangioma is favored. Consider short-term follow-up imaging, with ultrasound, in 3 months if tissue sampling is deferred Gallbladder sludge. No stones. No dilated ducts. Possible mild diffuse fatty infiltration or other hepatic parenchymal pathology.
[2017-04-08] MEDS: Ciprofloxacin 400mg/200ml D5W 400 MG/200 ML BAG IVPB SCH ×2 (12:12→22:30)
--- NOTE | 2017-04-08 15:56 | CP.PCM.PN ---
<Terence Varghese - Last Filed: 04/08/17 15:49> Subjective - Date & Time of Evaluation Date of Evaluation: 04/08/17 Time of Evaluation: 15:49 - Subjective Subjective: Patient has been seen and examined. No overnight events reported. Denies any fever, chills, CP, or SOB. Patient has stated that his abdominal pain has slightly improved. Patient has appetite. Objective - Vital Signs/Intake and Output Vital Signs (last 24 hours): Temp Pulse Resp BP Pulse Ox 98.1 F 89 20 145/77 97 04/08/17 07:20 04/08/17 07:20 04/08/17 07:20 04/08/17 07:20 04/08/17 07:20 - Medications Medications: Current Medications Ciprofloxacin (Cipro 400mg/200ml Dsw) 400 mg in 200 mls @ 133 mls/hr IVPB Q12H [facility] Last Admin: 04/08/17 12:12 Dose: 133 mls/hr Metronidazole (Flagyl) 500 mg in 100 mls @ 100 mls/hr IVPB Q8 [facility] Last Admin: 04/08/17 15:00 Dose: 100 mls/hr Dextrose/Sodium Chloride (Dextrose 5%/0.45% Ns 1000 Ml) 1,000 mls @ 80 mls/hr IV .[id number] [facility] Last Admin: 04/08/17 15:31 Dose: Not Given Insulin Human Regular (Novolin R) 0 unit SC ACHS JOHAN PRN Reason: Protocol Last Admin: 04/08/17 12:06 Dose: Not Given Morphine Sulfate (Morphine) 2 mg IVP Q4 PRN PRN Reason: Pain, moderate (4-7) Ondansetron HCl (Zofran Inj) 4 mg IVP Q4 PRN PRN Reason: Nausea/Vomiting - Labs Labs: 04/08/17 04:52 04/08/17 04:52 - Additional Findings Additional findings: - Constitutional Appears: No Acute Distress - Head Exam Head Exam: ATRAUMATIC, NORMOCEPHALIC - Eye Exam Eye Exam: EOMI, PERRL - Neck Exam Neck exam: Negative for: Lymphadenopathy, Thyromegaly - Respiratory Exam Respiratory Exam: NORMAL BREATHING PATTERN. absent: Rales, Rhonchi, Wheezes - Cardiovascular Exam Cardiovascular Exam: REGULAR RHYTHM, +S1, +S2. absent: Gallop, Rubs, Systolic Murmur - GI/Abdominal Exam GI & Abdominal Exam: Guarding, Soft, Tenderness. absent: Mass, Organomegaly Additional comments: LLQ tenderness to palpation with guarding - Rectal Exam Rectal Exam: Deferred - Extremities Exam Extremities exam: Negative for: calf tenderness, pedal edema Assessment and Plan - Assessment and Plan (Free Text) Assessment: 76 year old AA male, with PMHx of constipation, type two diabetes mellitus and glaucoma admitted for evaluation and treatment of diverticulitis with contained perforation. Plan: Sepsis Criteria: HR>90, WBC 11.3 Source: Diverticulitis w perforation Lactate 0.8 Cipro 400mg IV Q12H Flagyl 500mg IV Q8H Morphine 2mg IV Q4H PRN Zofran 4mg IV Q4H PRN Blood and Urine Culture Pending Diverticulitis with perforation Admit to med/surg Afebrile, WBC: 11.3 NPO Diet Surgical consult: Dr. Salazar, help appreciated GI Pouncing Machine Operator: Dr. Son CT A/P: acute diverticulitis of sigmoid colon with contained perforation, without a drainable fluid collection; fat containing left inguinal hernia Lipase 16 Cipro 400mg IV Q12H Flagyl 500mg IV Q8H Morphine 2mg IV Q4H PRN Zofran 4mg IV Q4H PRN Hemoccult negative at bedside - f/u fecal occult x 3 (pending) Leukocytosis WBC 11.3, with left shift, no bands Cipro 400mg IV Q12H Flagyl 500mg IV Q8H Type Two Diabetes Mellitus Home meds: Metformin 500mg PO BID, Glipizide (pt does not know dose) Pt received IV contrast, so hold Metformin x 48 hrs Pt NPO so holding both PO diabetes meds D5/1/2 NS @ 80cc/hr RADHA Accuchecks Hypoglycemia protocol Left inguinal hernia CT A/P: acute diverticulitis of sigmoid colon with contained perforation, without a drainable fluid collection; fat containing left inguinal hernia Liver Foci CT A/P: Indeterminate liver foci within segment 6 of liver for which US vs contrast MRI is recommended (with liver mass protocol) US (04/08/17): Right Hepatic lobe lesion, 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 Recommend F /U in 3months. Hx of glaucoma Pt unsure of eye drops, will bring from home Proteinuria UA: 2+ protein History of diabetes - pt unsure if on TOMAS inhibitor - will bring home meds Prophylaxis Heparin (Held at this time due to chance of emergent surgical procedure) SCDs Protonix 40mg IV Daily Dispo: Will need to follow up on patients home meds. Patient will need a 3 month follow up for liver lobe lesion found on 04/08/17. Terence Varghese PGY-1 Patient Discussed with Attending <Gerald Beasley - Last Filed: 04/13/17 17:10> Objective - Vital Signs/Intake and Output Vital Signs (last 24 hours): Temp Pulse Resp BP Pulse Ox 98.8 F 75 20 138/71 99 04/13/17 16:00 04/13/17 16:00 04/13/17 16:00 04/13/17 16:00 04/13/17 16:00 Intake and Output: 04/13/17 04/13/17 06:59 18:59 Intake Total 2140 Output Total 800 Balance 1340 - Medications Medications: Current Medications Docusate Sodium (Colace) 100 mg PO TID [facility] Last Admin: 04/13/17 13:02 Dose: 100 mg Ciprofloxacin (Cipro 400mg/200ml Dsw) 400 mg in 200 mls @ 133 mls/hr IVPB Q12H [facility] Last Admin: 04/13/17 12:55 Dose: 133 mls/hr Metronidazole (Flagyl) 500 mg in 100 mls @ 100 mls/hr IVPB Q8 [facility] Last Admin: 04/13/17 13:02 Dose: 100 mls/hr Sodium Chloride (Sodium Chloride 0.9%) 1,000 mls @ 100 mls/hr IV .Q10H [facility] Last Admin: 04/13/17 12:56 Dose: Not Given Insulin Glargine (Lantus) 12 unit SC HS JOHAN Insulin Human Regular (Novolin R) 0 unit SC ACHS JOHAN PRN Reason: Protocol Last Admin: 04/13/17 12:54 Dose: 2 unit Lisinopril (Zestril) 2.5 mg PO DAILY [facility] Last Admin: 04/13/17 10:00 Dose: 2.5 mg Morphine Sulfate (Morphine) 2 mg IVP Q4 PRN PRN Reason: Pain, moderate (4-7) Curjy-2-Myyw Ethyl Esters (Lovaza) 1 gm PO BID [facility] Last Admin: 04/13/17 12:55 Dose: 1 gm Ondansetron HCl (Zofran Inj) 4 mg IVP Q6 PRN PRN Reason: Nausea/Vomiting Pantoprazole Sodium (Protonix Inj) 40 mg IVP DAILY [facility] Last Admin: 04/13/17 10:00 Dose: 40 mg Saccharomyces Boulardii (Florastor) 250 mg PO BID [facility] Last Admin: 04/13/17 10:00 Dose: 250 mg - Labs Labs: 04/13/17 08:23 04/13/17 08:23 Attending/Attestation - Attestation I have personally seen and examined this patient.: Yes I have fully participated in the care of the patient.: Yes I have reviewed all pertinent clinical information, including history, physical exam and plan: Yes Notes (Text): 76 year old AA male, with PMHx of constipation, type two diabetes mellitus and glaucoma admitted for evaluation and treatment of diverticulitis with contained perforation. Plan: Sepsis due to diverticulitis Diverticulitis with perforation management per surgery - conservative for now per surgery
[2017-04-09] MEDS: Dextrose 5%/0.45% NS 1,000 ML IV SCH (02:00)
[2017-04-09] MEDS: metroNIDAZOLE IV 500 mg/100 ml 500 MG/100 ML BAG IVPB SCH ×3 (06:00→22:01)
--- NOTE | 2017-04-09 07:55 | CP.PCM.PCO ---
Physician Communication Note - Physician Communication Note Physician Communication Note: held flu and pneumonia vaccine inpatient until diverticulitis resolved
[2017-04-09 07:58] LABS: BASO % 0.3 % (0.0-2.0); EOS # 0.1 K/uL (0.0-0.7); EOS % 1.1 % (0.0-4.0); HEMATOCRIT 38.5 % (35.0-51.0); LYMPH # 0.7 K/uL (1.0-4.3); LYMPH % 9.2 % (20.0-40.0); MEAN CELL VOLUME 85.3 fL (80.0-94.0); MEAN CORPUSCULAR HEMOGLOBIN 29.5 pg (27.0-31.0); MEAN CORPUSCULAR HGB CONC 34.6 g/dL (33.0-37.0); MONO # 0.7 K/uL (0.0-0.8); MONO % 8.8 % (0.0-10.0); NRBC % 0.2 % (0.0-2.0); PLATELET COUNT 216 K/uL (130-400); RED CELL DISTRIBUTION WIDTH 13.7 % (11.5-14.5); WHITE BLOOD COUNT 7.8 K/uL (4.8-10.8)
[2017-04-09 08:49] LABS: EOSINOPHIL 1 % (0-4); NEUTROPHIL 78 % (50-75); TOTAL CELLS COUNTED 100
[2017-04-09] MEDS: (Novolin R) Insulin Human Regular 100 units/ml vial SC SCH ×4 (08:53→22:00)
[2017-04-09] MEDS: Ciprofloxacin 400mg/200ml D5W 400 MG/200 ML BAG IVPB SCH ×2 (11:27→23:10)
--- NOTE | 2017-04-09 14:59 | CP.PCM.PN ---
<Arti Stokes - Last Filed: 04/09/17 15:01> Subjective - Date & Time of Evaluation Date of Evaluation: 04/09/17 Time of Evaluation: 10:00 - Subjective Subjective: GENERAL SURGERY PROGRESS NOTE FOR DR. SALAZAR Patient seen and examined at bedside. He is tolerating clear liquid diet but states that he doesn't like it because it is a lot of sugar. He denies nausea or vomiting. He has some very mild abdominal pain. Objective - Vital Signs/Intake and Output Vital Signs (last 24 hours): Temp Pulse Resp BP Pulse Ox 98 F 78 20 146/72 98 04/09/17 08:14 04/09/17 08:14 04/09/17 08:14 04/09/17 08:14 04/09/17 08:14 Intake and Output: 04/09/17 04/09/17 06:59 18:59 Intake Total 1510 Balance 1510 - Medications Medications: Current Medications Docusate Sodium (Colace) 100 mg PO BID [facility] Ciprofloxacin (Cipro 400mg/200ml Dsw) 400 mg in 200 mls @ 133 mls/hr IVPB Q12H [facility] Last Admin: 04/09/17 11:27 Dose: 133 mls/hr Metronidazole (Flagyl) 500 mg in 100 mls @ 100 mls/hr IVPB Q8 [facility] Last Admin: 04/09/17 14:45 Dose: 100 mls/hr Dextrose/Sodium Chloride (Dextrose 5%/0.45% Ns 1000 Ml) 1,000 mls @ 80 mls/hr IV .[id number] [facility] Last Admin: 04/09/17 02:00 Dose: 80 mls/hr Insulin Human Regular (Novolin R) 0 unit SC ACHS [facility] PRN Reason: Protocol Last Admin: 04/09/17 12:05 Dose: 6 unit Morphine Sulfate (Morphine) 2 mg IVP Q4 PRN PRN Reason: Pain, moderate (4-7) Ondansetron HCl (Zofran Inj) 4 mg IVP Q4 PRN PRN Reason: Nausea/Vomiting Saccharomyces Boulardii (Florastor) 250 mg PO BID [facility] - Labs Labs: 04/09/17 07:49 04/08/17 04:52 - Constitutional Appears: Non-toxic, No Acute Distress - Head Exam Head Exam: ATRAUMATIC, NORMAL INSPECTION - Respiratory Exam Respiratory Exam: NORMAL BREATHING PATTERN. absent: Respiratory Distress - Cardiovascular Exam Cardiovascular Exam: +S1, +S2. absent: Tachycardia - GI/Abdominal Exam GI & Abdominal Exam: Soft. absent: Distended, Firm, Guarding, Rigid, Tenderness , Rebound - Neurological Exam Neurological Exam: Alert, Awake, Oriented x3 - Psychiatric Exam Psychiatric exam: Normal Affect, Normal Mood - Skin Skin Exam: Dry, Normal Color, Warm Assessment and Plan - Assessment and Plan (Free Text) Assessment: 76yo M with PMHx of DM presents with LLQ abdominal pain and was found to have diverticulitis with contained perforation - Afebrile, VSS - Leukocytosis resolved - CT: acute diverticulitis of sigmoid colon with contained perforation, without a drainable fluid collection; fat containing left inguinal hernia - Tolerating CLD, will advance to full liquids for dinner - IV fluids - IV Abx: Cipro & Flagyl - GI: recommends repeating CT later this week - No surgical intervention necessary at this time - Discussed plan with Dr. Martin Stokes PGY-3 <Juan M Salazar - Last Filed: 04/09/17 20:05> Objective - Vital Signs/Intake and Output Vital Signs (last 24 hours): Temp Pulse Resp BP Pulse Ox 97.6 F 84 20 141/69 98 04/09/17 15:00 04/09/17 15:00 04/09/17 15:00 04/09/17 15:00 04/09/17 15:00 Intake and Output: 04/09/17 04/10/17 18:59 06:59 Intake Total 880 Balance 880 - Medications Medications: Current Medications Docusate Sodium (Colace) 100 mg PO BID [facility] Last Admin: 04/09/17 18:21 Dose: 100 mg Ciprofloxacin (Cipro 400mg/200ml Dsw) 400 mg in 200 mls @ 133 mls/hr IVPB Q12H [facility] Last Admin: 04/09/17 11:27 Dose: 133 mls/hr Metronidazole (Flagyl) 500 mg in 100 mls @ 100 mls/hr IVPB Q8 [facility] Last Admin: 04/09/17 14:45 Dose: 100 mls/hr Sodium Chloride (Sodium Chloride 0.9%) 1,000 mls @ 100 mls/hr IV .Q10H [facility] Last Admin: 04/09/17 18:35 Dose: 100 mls/hr Insulin Human Regular (Novolin R) 0 unit SC ACHS JOHAN PRN Reason: Protocol Last Admin: 04/09/17 18:25 Dose: Not Given Lisinopril (Zestril) 2.5 mg PO DAILY [facility] Morphine Sulfate (Morphine) 2 mg IVP Q4 PRN PRN Reason: Pain, moderate (4-7) Ucfja-5-Fign Ethyl Esters (Lovaza) 1 gm PO BID [facility] Last Admin: 04/09/17 18:22 Dose: 1 gm Ondansetron HCl (Zofran Inj) 4 mg IVP Q6 PRN PRN Reason: Nausea/Vomiting Pantoprazole Sodium (Protonix Inj) 40 mg IVP DAILY [facility] Potassium Chloride (K-Dur 20 Meq Er Tab) 40 meq PO Q2H [facility] Stop: 04/09/17 21:46 Last Admin: 04/09/17 19:56 Dose: 40 meq Saccharomyces Boulardii (Florastor) 250 mg PO BID [facility] Last Admin: 04/09/17 18:21 Dose: 250 mg - Labs Labs: 04/09/17 07:49 04/09/17 16:42 Attending/Attestation - Attestation I have personally seen and examined this patient.: Yes I have fully participated in the care of the patient.: Yes I have reviewed all pertinent clinical information, including history, physical exam and plan: Yes Notes (Text): Pt was seen and examined at bedside Agree with above note and assessment Pt is improved clinically Advance diet as tolerated NO need for any surgical intervention at present f.u as out pt Plan d.w pt in detail. Risk and benefit explained in detail.
--- NOTE | 2017-04-09 16:23 | CP.PCM.PN ---
Subjective - Date & Time of Evaluation Date of Evaluation: 04/09/17 Time of Evaluation: 04:25 - Subjective Subjective: Patient complains of soreness, less than yesterday. He is tolerating a clear liquid diet. Objective - Vital Signs/Intake and Output Vital Signs (last 24 hours): Temp Pulse Resp BP Pulse Ox 97.6 F 84 20 141/69 98 04/09/17 15:00 04/09/17 15:00 04/09/17 15:00 04/09/17 15:00 04/09/17 15:00 Intake and Output: 04/09/17 04/09/17 06:59 18:59 Intake Total 1510 880 Balance 1510 880 - Medications Medications: Current Medications Docusate Sodium (Colace) 100 mg PO BID [facility] Ciprofloxacin (Cipro 400mg/200ml Dsw) 400 mg in 200 mls @ 133 mls/hr IVPB Q12H [facility] Last Admin: 04/09/17 11:27 Dose: 133 mls/hr Metronidazole (Flagyl) 500 mg in 100 mls @ 100 mls/hr IVPB Q8 [facility] Last Admin: 04/09/17 14:45 Dose: 100 mls/hr Dextrose/Sodium Chloride (Dextrose 5%/0.45% Ns 1000 Ml) 1,000 mls @ 80 mls/hr IV .[id number] [facility] Last Admin: 04/09/17 02:00 Dose: 80 mls/hr Insulin Human Regular (Novolin R) 0 unit SC ACHS [facility] PRN Reason: Protocol Last Admin: 04/09/17 12:05 Dose: 6 unit Morphine Sulfate (Morphine) 2 mg IVP Q4 PRN PRN Reason: Pain, moderate (4-7) Ondansetron HCl (Zofran Inj) 4 mg IVP Q4 PRN PRN Reason: Nausea/Vomiting Saccharomyces Boulardii (Florastor) 250 mg PO BID [facility] - Labs Labs: 04/09/17 07:49 04/08/17 04:52 - Constitutional Appears: No Acute Distress - Head Exam Head Exam: ATRAUMATIC, NORMOCEPHALIC - Eye Exam Eye Exam: EOMI, PERRL - Neck Exam Neck Exam: absent: Lymphadenopathy, Thyromegaly - Respiratory Exam Respiratory Exam: NORMAL BREATHING PATTERN. absent: Rales, Rhonchi, Wheezes - Cardiovascular Exam Cardiovascular Exam: REGULAR RHYTHM, +S1, +S2. absent: Gallop, Rubs, Murmur - GI/Abdominal Exam GI & Abdominal Exam: Soft, Tenderness, Normal Bowel Sounds. absent: Mass, Organomegaly Additional comments: LLQ tenderness to palpation without rebound - Rectal Exam Rectal Exam: Deferred - Extremities Exam Extremities Exam: absent: Calf Tenderness, Pedal Edema Assessment and Plan (1) Diverticulitis of colon with perforation Assessment & Plan: Pain is improving. Continue antibiotics. Repeat CT scan. Status: Acute
--- NOTE | 2017-04-09 16:23 | CP.PCM.PN ---
<[email or web address] - Last Filed: 04/09/17 16:20> Subjective - Date & Time of Evaluation Date of Evaluation: 04/09/17 Time of Evaluation: 16:20 - Subjective Subjective: Patient seen and examined. No overnight events reported. Denies any fevers, chills, CP, or SOB. Abdominal Pain has improved. He rates it a 3/10. Patient states he has not had a bowel movement since last week Friday. Objective - Vital Signs/Intake and Output Vital Signs (last 24 hours): Temp Pulse Resp BP Pulse Ox 97.6 F 84 20 141/69 98 04/09/17 15:00 04/09/17 15:00 04/09/17 15:00 04/09/17 15:00 04/09/17 15:00 Intake and Output: 04/09/17 04/09/17 06:59 18:59 Intake Total 1510 880 Balance 1510 880 - Medications Medications: Current Medications Docusate Sodium (Colace) 100 mg PO BID [facility] Ciprofloxacin (Cipro 400mg/200ml Dsw) 400 mg in 200 mls @ 133 mls/hr IVPB Q12H [facility] Last Admin: 04/09/17 11:27 Dose: 133 mls/hr Metronidazole (Flagyl) 500 mg in 100 mls @ 100 mls/hr IVPB Q8 [facility] Last Admin: 04/09/17 14:45 Dose: 100 mls/hr Dextrose/Sodium Chloride (Dextrose 5%/0.45% Ns 1000 Ml) 1,000 mls @ 80 mls/hr IV .[id number] [facility] Last Admin: 04/09/17 02:00 Dose: 80 mls/hr Insulin Human Regular (Novolin R) 0 unit SC ACHS [facility] PRN Reason: Protocol Last Admin: 04/09/17 12:05 Dose: 6 unit Morphine Sulfate (Morphine) 2 mg IVP Q4 PRN PRN Reason: Pain, moderate (4-7) Ondansetron HCl (Zofran Inj) 4 mg IVP Q4 PRN PRN Reason: Nausea/Vomiting Saccharomyces Boulardii (Florastor) 250 mg PO BID [facility] - Labs Labs: 04/09/17 07:49 04/08/17 04:52 - Additional Findings Additional findings: - Constitutional Appears: No Acute Distress - Head Exam Head Exam: ATRAUMATIC, NORMOCEPHALIC - Eye Exam Eye Exam: EOMI, PERRL - Neck Exam Neck exam: Negative for: Lymphadenopathy, Thyromegaly - Respiratory Exam Respiratory Exam: NORMAL BREATHING PATTERN. absent: Rales, Rhonchi, Wheezes - Cardiovascular Exam Cardiovascular Exam: REGULAR RHYTHM, +S1, +S2. absent: Gallop, Rubs, Systolic Murmur - GI/Abdominal Exam GI & Abdominal Exam: Soft, Tenderness (3/10). absent: Mass, Organomegaly, Guarding Additional comments: LLQ tenderness with Deep palpation. NO guarding. - Extremities Exam Extremities exam: Negative for: calf tenderness, pedal edema Assessment and Plan - Assessment and Plan (Free Text) Assessment: 76 year old AA male, with PMHx of constipation, type two diabetes mellitus and glaucoma admitted for evaluation and treatment of diverticulitis with contained perforation. Plan: Sepsis (Resolved) Criteria: HR>90, WBC 11.3 Source: Diverticulitis w perforation Lactate 0.8 Cipro 400mg IV Q12H Flagyl 500mg IV Q8H Morphine 2mg IV Q4H PRN Zofran 4mg IV Q4H PRN Blood and Urine Culture NEGATIVE x 24 hrs Diverticulitis with perforation Admit to med/surg Afebrile, WBC: 11.3 FLD for Lunch Surgical consult: Dr. Salazar, help appreciated GI Food Counselor: Dr. Son, recs appreciated CT A/P: acute diverticulitis of sigmoid colon with contained perforation, without a drainable fluid collection; fat containing left inguinal hernia Lipase 16 Cipro 400mg IV Q12H Flagyl 500mg IV Q8H Morphine 2mg IV Q4H PRN Zofran 4mg IV Q4H PRN Hemoccult negative at bedside Constipation Colace 100 BID Prune Juice. Leukocytosis (Resolved) WBC 11.3 on admission with left shift, no bands Cipro 400mg IV Q12H Flagyl 500mg IV Q8H Type Two Diabetes Mellitus (Stable) Home meds: Metformin 500mg PO BID (Held), Glipizide (pt does not know dose) Pt received IV contrast, so hold Metformin x 48 hrs Pt NPO so holding both PO diabetes meds D5/1/2 NS @ 80cc/hr RADHA Accuchecks Hypoglycemia protocol Left inguinal hernia CT A/P: acute diverticulitis of sigmoid colon with contained perforation, without a drainable fluid collection; fat containing left inguinal hernia Liver Foci CT A/P: Indeterminate liver foci within segment 6 of liver for which US vs contrast MRI is recommended (with liver mass protocol) US (04/08/17): Right Hepatic lobe lesion, 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 Recommend F /U in 3months. Hx of glaucoma Pt unsure of eye drops, will bring from home Proteinuria UA: 2+ protein History of diabetes - pt unsure if on TOMAS inhibitor - will bring home meds Prophylaxis Heparin (Held at this time due to chance of emergent surgical procedure) SCDs Protonix 40mg IV Daily Dispo: Will need to follow up on patients home meds. Patient will need a 3 month follow up for liver lobe lesion found on 04/08/17. Terence Varghese PGY-1 Patient Discussed with Attending <Bonny Allison V - Last Filed: 04/09/17 17:01> Objective - Vital Signs/Intake and Output Vital Signs (last 24 hours): Temp Pulse Resp BP Pulse Ox 97.6 F 84 20 141/69 98 04/09/17 15:00 04/09/17 15:00 04/09/17 15:00 04/09/17 15:00 04/09/17 15:00 Intake and Output: 04/09/17 04/09/17 06:59 18:59 Intake Total 1510 880 Balance 1510 880 - Medications Medications: Current Medications Docusate Sodium (Colace) 100 mg PO BID [facility] Ciprofloxacin (Cipro 400mg/200ml Dsw) 400 mg in 200 mls @ 133 mls/hr IVPB Q12H [facility] Last Admin: 04/09/17 11:27 Dose: 133 mls/hr Metronidazole (Flagyl) 500 mg in 100 mls @ 100 mls/hr IVPB Q8 [facility] Last Admin: 04/09/17 14:45 Dose: 100 mls/hr Sodium Chloride (Sodium Chloride 0.9%) 1,000 mls @ 100 mls/hr IV .Q10H [facility] Insulin Human Regular (Novolin R) 0 unit SC ACHS [facility] PRN Reason: Protocol Last Admin: 04/09/17 12:05 Dose: 6 unit Morphine Sulfate (Morphine) 2 mg IVP Q4 PRN PRN Reason: Pain, moderate (4-7) Ondansetron HCl (Zofran Inj) 4 mg IVP Q4 PRN PRN Reason: Nausea/Vomiting Saccharomyces Boulardii (Florastor) 250 mg PO BID [facility] - Labs Labs: 04/09/17 07:49 04/08/17 04:52 Attending/Attestation - Attestation I have personally seen and examined this patient.: Yes I have fully participated in the care of the patient.: Yes I have reviewed all pertinent clinical information, including history, physical exam and plan: Yes Notes (Text): Patient seen, examined, and case discussed with day-time resident. Patient seen this morning. This is my first visit with him. Patient is male reports he came into the hospital following intense abdominal pain. Patient reports today pain is 3/10 on pain scale, denies nausea, denies vomitting at bedside. Patient denies other acute complaints, except he has not had a bowel movement since last Friday. Assessment/Plan 1) Sepsis * Criteria: HR>90, WBC 11.3, and Source: Diverticulitis w microperforation * Lactate 0.8 * Code sepsis not called given normal lactate * Cipro 400mg IV Q12H (Active since 04/08/17) * Flagyl 500mg IV Q8H (active since 04/08/17) * Morphine 2mg IV Q4H PRN\ * Zofran 4mg IV Q6H PRN * Afebrile * Blood Culture (04/07): no growth after 24hours X2 * Urine culture (04/07): no growth 2) Diverticulitis with perforation * Surgical consult: Dr. Salazar, help appreciated * GI Food Counselor: Dr. Son, recs appreciated * Afebrile, WBC: 11.3 * Tolerating full liquid diet * CT A/P w IV contrast (04/07/17): acute diverticulitis with contained performation w/o drainable fluid collection. Follow-up to resolution is recommended. Indeterminate focus within segment 6 of the liver which dedicated US versus contrast enhanced MRI * Cipro 400mg IV Q12H (Active since 04/08/17) * Flagyl 500mg IV Q8H (active since 04/08/17) * Morphine 2mg IV Q4H PRN * Zofran 4mg IV Q6H PRN 3) Constipation * Colace 100 BID * Advocated for Prune Juice to help relieve constipation 4) Leukocytosis * WBC 11.3 on admission with left shift, no bands * Cipro 400mg IV Q12H * Flagyl 500mg IV Q8H * Blood Culture (04/07): no growth after 24hours X2 * Urine culture (04/07): no growth 5) Type Two Diabetes Mellitus * Hgba1c: 8.8 * LDL: 102; HDL: 27, T; Chol: 153 * Home meds: Metformin 500mg PO BID (Held), Glipizide (pt does not know dose) * Pt received IV contrast, so hold Metformin x 48 hrs * On full liquid changed to diabetic clears given elevated sugars >500 this morning * Will start low dose tomas inhibitor * Changed to NS 100cc/hr * RISS * Accuchecks QAC and HS * Hypoglycemia protocol 6) Left inguinal hernia * noted on CT scan; not in incarcerated nor strangulated 7) Liver Foci * CT A/P: Indeterminate liver foci within segment 6 of liver for which US vs contrast MRI is recommended (with liver mass protocol) * US (04/08/17): Right Hepatic lobe lesion, 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 Recommend F/U in 3months. * Patient's GI is on the case 8) Hx of glaucoma * Pt unsure of eye drops, will bring from home-->resident to follow-up medication 9) Proteinuria * UA: 2+ protein and History of diabetes * pt unsure if on TOMAS inhibitor * Will start low dose tomas inhibitor 10) Low HDL * Started on Lovaza 1 gram PO BID to bring up HDL 11) Prophylaxis * Chemical anticoagulation held secondary to possible need for general surgery intervention * SCDs * Protonix 40mg IV Daily Disposition: Will continue to monitor patient's abdominal exam in light of microperforation to avoid macroperforation. Order for repeat CT scan with IV scan to see if improvement. Patient started on stool softeners and prune juice to help relieve constipation
[2017-04-09 17:05] LABS: ALB/GLOB RATIO 0.9 (1.0-2.1); ALKALINE PHOSPHATASE 96 U/L (38-126); ALT/SGPT 39 U/L (21-72); AST/SGOT 17 U/L (17-59); BILIRUBIN,TOTAL 0.6 mg/dL (0.2-1.3); BLOOD UREA NITROGEN 7 mg/dL (9-20); CALCIUM 8.3 mg/dl (8.6-10.4); CARBON DIOXIDE 29 mmol/L (22-30); CHLORIDE 98 mmol/L (98-107); GFR AFRICAN-AMERICAN > 60; GLUCOSE,RANDOM 74 mg/dL (75-110); POTASSIUM 3.3 mmol/L (3.6-5.2); SODIUM 136 mmol/L (132-148); TOTAL PROTEIN 7.8 g/dL (6.3-8.3)
[2017-04-09] MEDS: Saccharomyces Boulardi 250 mg Cap PO SCH (18:21)
[2017-04-09] MEDS: Omega-3-Acid Ethyl Esters 1 GM Cap PO SCH (18:22)
[2017-04-09] MEDS: Sodium Chloride 0.9% 1,000 ML IV SCH (18:35)
[2017-04-09] MEDS ORDERED: Iodixanol 320 MG/ML 100 ML BOTTLE IV ONE (19:55)
[2017-04-09] MEDS: Potassium Chloride 20 mEq ER Tab PO SCH ×2 (19:56→21:59)
--- NOTE | 2017-04-09 21:10 | CT ---
EXAM: CT Abdomen and Pelvis With Intravenous Contrast CLINICAL HISTORY: 76 years old, male; Condition or disease; Other: Diverticulitis with perforation; Additional info: Diverticulitis w perforation TECHNIQUE: Axial computed tomography images of the abdomen and pelvis with intravenous contrast. All CT scans at this facility use one or more dose reduction techniques, viz.: automated exposure control; ma/kV adjustment per patient size (including targeted exams where dose is matched to indication; i.e. head); or iterative reconstruction technique. Coronal and sagittal reformatted images were created and reviewed. CONTRAST: 100 mL of visipaque 320 administered intravenously. COMPARISON: CT - ABD PELVIS IV CONTRAST ONLY 2017-04-07 20:30 FINDINGS: Lower thorax: Exam Date/Time heart size is normal. There is a small hiatal hernia. There is atelectasis at the lung bases There is a hiatal hernia. ABDOMEN: Liver: There is a poorly defined low-attenuation partially enhancing lesion in the right lobe of the liver possibly hemangioma. Similar findings seen on the prior study. There is fatty infiltration of the liver. Gallbladder and bile ducts: Gallbladder is partially distended. There may be a small amount of contrast from a prior study in the gallbladder.Common duct is unremarkable. Pancreas: Pancreas is mildly atrophic. Spleen: unremarkable Adrenals: unremarkable Kidneys and ureters: unremarkable Stomach and bowel: Stomach is partially distended with fluid and air. There is a small amount of radiopaque material in the stomach. Rotation is normal. Small bowel is mildly distended with fluid and air. There is no obstruction. There are inflamed small bowel loops in the left pelvis with mild wall thickening. Ileocecal region is unremarkable. Appendix and terminal ileum are unremarkable.There is moderate stool in the colon. There is diverticulosis. There is sigmoid diverticulitis with perforation. There is focal air collection and pericolonic fat adjacent to the inflamed sigmoid. Amount of air has increased slightly compared to the prior study. There is inflammatory change in adjacent small bowel loops. There is no discrete abscess. Appendix: See stomach and bowel PELVIS: Bladder: Bladder is partially distended. There is mild bladder wall prominence. Reproductive: The prostate is enlarged. Seminal vesicles have the expected configuration. ABDOMEN and PELVIS: Intraperitoneal space: There is loculated air in the left lower quadrant adjacent to the inflamed sigmoid. There is no free air in the upper abdomen. Bones/joints: There are degenerative changes in the osseus structures. Soft tissues: There is a small fat containing umbilical hernia. Vasculature: There are vascular calcifications. Lymph nodes: There is shotty adenopathy. IMPRESSION: Sigmoid diverticulitis with contained perforation, similar findings seen on the prior study; poorly defined right hepatic lesion possibly hemangioma, MRI is suggested for more complete evaluation as clinically indicated; mild ileus, no obstruction Additional findings as described above.
[2017-04-10] MEDS: Sodium Chloride 0.9% 1,000 ML IV SCH ×3 (04:45→22:46)
[2017-04-10] MEDS: metroNIDAZOLE IV 500 mg/100 ml 500 MG/100 ML BAG IVPB SCH ×3 (06:15→21:33)
[2017-04-10 08:50] LABS: BASO % 0.4 % (0.0-2.0); EOS # 0.1 K/uL (0.0-0.7); EOS % 0.9 % (0.0-4.0); HEMATOCRIT 39.3 % (35.0-51.0); LYMPH % 10.6 % (20.0-40.0); MEAN CELL VOLUME 86.9 fL (80.0-94.0); MEAN CORPUSCULAR HEMOGLOBIN 28.5 pg (27.0-31.0); MEAN CORPUSCULAR HGB CONC 32.8 g/dL (33.0-37.0); MONO % 9.7 % (0.0-10.0); RED CELL DISTRIBUTION WIDTH 13.7 % (11.5-14.5); WHITE BLOOD COUNT 9.9 K/uL (4.8-10.8)
[2017-04-10] MEDS: (Novolin R) Insulin Human Regular 100 units/ml vial SC SCH ×4 (08:51→21:33)
[2017-04-10 09:08] LABS: ALB/GLOB RATIO 1.2 (1.0-2.1); ALKALINE PHOSPHATASE 92 U/L (38-126); ALT/SGPT 36 U/L (21-72); AST/SGOT 14 U/L (17-59); BILIRUBIN,TOTAL 0.8 mg/dL (0.2-1.3); BLOOD UREA NITROGEN 8 mg/dL (9-20); CARBON DIOXIDE 24 mmol/L (22-30); CHLORIDE 100 mmol/L (98-107); GFR AFRICAN-AMERICAN > 60; GLUCOSE,RANDOM 201 mg/dL (75-110); SODIUM 132 mmol/L (132-148); TOTAL PROTEIN 6.2 g/dL (6.3-8.3)
[2017-04-10] MEDS ORDERED: Pneumococcal 23-Valent Vaccine IM ONE (10:00)
[2017-04-10] MEDS ORDERED: Influenza Vaccine 60 mcg/0.5 mL SYR (4YR UP) IM ONE (10:00)
[2017-04-10] MEDS: Omega-3-Acid Ethyl Esters 1 GM Cap PO SCH ×2 (10:48→18:13)
[2017-04-10] MEDS: Saccharomyces Boulardi 250 mg Cap PO SCH ×2 (10:49→18:13)
[2017-04-10] MEDS: Ciprofloxacin 400mg/200ml D5W 400 MG/200 ML BAG IVPB SCH ×2 (11:16→22:42)
--- NOTE | 2017-04-10 16:41 | CP.PCM.PN ---
<Terence Varghese - Last Filed: 04/10/17 17:27> Subjective - Date & Time of Evaluation Date of Evaluation: 04/10/17 Time of Evaluation: 08:45 - Subjective Subjective: Patient seen and examined. No overnight events reported. Denies any fevers, chills, CP, or SOB. Abdominal Pain has slightly worsened He rates it a 4/10 as supposed to a 3/10 yesterday. Patient had small soft bowel movement this morning without blood in it. Objective - Vital Signs/Intake and Output Vital Signs (last 24 hours): Temp Pulse Resp BP Pulse Ox 98.3 F 87 20 118/72 98 04/10/17 07:41 04/10/17 07:41 04/10/17 07:41 04/10/17 07:41 04/10/17 07:41 Intake and Output: 04/10/17 04/10/17 06:59 18:59 Intake Total 2140 Output Total 800 Balance 1340 - Medications Medications: Current Medications Docusate Sodium (Colace) 100 mg PO BID [facility] Last Admin: 04/10/17 10:48 Dose: 100 mg Ciprofloxacin (Cipro 400mg/200ml Dsw) 400 mg in 200 mls @ 133 mls/hr IVPB Q12H [facility] Last Admin: 04/10/17 11:16 Dose: 133 mls/hr Metronidazole (Flagyl) 500 mg in 100 mls @ 100 mls/hr IVPB Q8 [facility] Last Admin: 04/10/17 13:35 Dose: 100 mls/hr Sodium Chloride (Sodium Chloride 0.9%) 1,000 mls @ 100 mls/hr IV .Q10H [facility] Last Admin: 04/10/17 13:37 Dose: 100 mls/hr Insulin Human Regular (Novolin R) 0 unit SC ACHS [facility] PRN Reason: Protocol Last Admin: 04/10/17 11:38 Dose: 3 unit Lisinopril (Zestril) 2.5 mg PO DAILY [facility] Last Admin: 04/10/17 10:49 Dose: 2.5 mg Morphine Sulfate (Morphine) 2 mg IVP Q4 PRN PRN Reason: Pain, moderate (4-7) [id number] Ethyl Esters (Lovaza) 1 gm PO BID [facility] Last Admin: 04/10/17 10:48 Dose: 1 gm Ondansetron HCl (Zofran Inj) 4 mg IVP Q6 PRN PRN Reason: Nausea/Vomiting Pantoprazole Sodium (Protonix Inj) 40 mg IVP DAILY [facility] Last Admin: 04/10/17 10:34 Dose: 40 mg Saccharomyces Boulardii (Florastor) 250 mg PO BID [facility] Last Admin: 04/10/17 10:49 Dose: 250 mg - Labs Labs: 04/10/17 08:38 04/10/17 08:38 - Additional Findings Additional findings: - Constitutional Appears: No Acute Distress - Head Exam Head Exam: ATRAUMATIC, NORMOCEPHALIC - Eye Exam Eye Exam: EOMI, PERRL - Neck Exam Neck exam: Negative for: Lymphadenopathy, Thyromegaly - Respiratory Exam Respiratory Exam: NORMAL BREATHING PATTERN. absent: Rales, Rhonchi, Wheezes - Cardiovascular Exam Cardiovascular Exam: REGULAR RHYTHM, +S1, +S2. absent: Gallop, Rubs, Systolic Murmur - GI/Abdominal Exam GI & Abdominal Exam: Soft, Tenderness (4/10). absent: Mass, Organomegaly, Guarding Additional comments: LLQ tenderness with Deep palpation. NO guarding. - Extremities Exam Extremities exam: Negative for: calf tenderness, pedal edema Assessment and Plan - Assessment and Plan (Free Text) Assessment: 76 year old AA male, with PMHx of constipation, type two diabetes mellitus and glaucoma admitted for evaluation and treatment of diverticulitis with contained perforation. Plan: Sepsis (Resolved) Criteria: HR>90, WBC 11.3 Source: Diverticulitis w perforation Lactate 0.8 Cipro 400mg IV Q12H Flagyl 500mg IV Q8H Morphine 2mg IV Q4H PRN Zofran 4mg IV Q4H PRN Blood and Urine Culture NEGATIVE x 48 hrs Diverticulitis with perforation Admit to med/surg Afebrile, WBC: 11.3 FLD. Advance as tolerated. Surgical consult: Dr. Salazar, help appreciated GI Fishing Gear Mechanic: Dr. Son, recs appreciated CT A/P: acute diverticulitis of sigmoid colon with contained perforation, without a drainable fluid collection; fat containing left inguinal hernia Lipase 16 Cipro 400mg IV Q12H Flagyl 500mg IV Q8H Morphine 2mg IV Q4H PRN Zofran 4mg IV Q4H PRN Hemoccult negative at bedside Constipation Colace 100 BID Prune Juice. Leukocytosis (Resolved) WBC 11.3 on admission with left shift, no bands Cipro 400mg IV Q12H Flagyl 500mg IV Q8H Type Two Diabetes Mellitus (Stable) Home meds: Metformin 500mg PO BID (Held), Glipizide (pt does not know dose) Pt received IV contrast, so hold Metformin x 48 hrs Pt NPO so holding both PO diabetes meds D5/1/2 NS @ 80cc/hr RADHA Accuchecks Hypoglycemia protocol Left inguinal hernia CT A/P: acute diverticulitis of sigmoid colon with contained perforation, without a drainable fluid collection; fat containing left inguinal hernia Liver Foci CT A/P: Indeterminate liver foci within segment 6 of liver for which US vs contrast MRI is recommended (with liver mass protocol) US (04/08/17): Right Hepatic lobe lesion, 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 Recommend F /U in 3months. Hx of glaucoma Pt unsure of eye drops, will bring from home Proteinuria UA: 2+ protein History of diabetes - pt unsure if on TOMAS inhibitor - will bring home meds Prophylaxis Heparin (Held at this time due to chance of emergent surgical procedure) SCDs Protonix 40mg IV Daily Dispo: Will need to follow up on patients home meds. Pharmacy was called and there was no mention of gluacoma medication. Patient will need a 3 month follow up for liver lobe lesion found on 04/08/17. Terence Varghese PGY-1 Patient Discussed with Attending <Bonny Allison V - Last Filed: 04/10/17 21:05> Objective - Vital Signs/Intake and Output Vital Signs (last 24 hours): Temp Pulse Resp BP Pulse Ox 98.2 F 74 20 144/69 99 04/10/17 16:00 04/10/17 16:00 04/10/17 16:00 04/10/17 16:00 04/10/17 16:00 Intake and Output: 04/10/17 04/11/17 18:59 06:59 Intake Total 1280 Balance 1280 - Medications Medications: Current Medications Docusate Sodium (Colace) 100 mg PO BID [facility] Last Admin: 04/10/17 18:12 Dose: 100 mg Ciprofloxacin (Cipro 400mg/200ml Dsw) 400 mg in 200 mls @ 133 mls/hr IVPB Q12H [facility] Last Admin: 04/10/17 11:16 Dose: 133 mls/hr Metronidazole (Flagyl) 500 mg in 100 mls @ 100 mls/hr IVPB Q8 [facility] Last Admin: 04/10/17 13:35 Dose: 100 mls/hr Sodium Chloride (Sodium Chloride 0.9%) 1,000 mls @ 100 mls/hr IV .Q10H [facility] Last Admin: 04/10/17 13:37 Dose: 100 mls/hr Insulin Human Regular (Novolin R) 0 unit SC ACHS [facility] PRN Reason: Protocol Last Admin: 04/10/17 18:13 Dose: 2 unit Lisinopril (Zestril) 2.5 mg PO DAILY [facility] Last Admin: 04/10/17 10:49 Dose: 2.5 mg Morphine Sulfate (Morphine) 2 mg IVP Q4 PRN PRN Reason: Pain, moderate (4-7) [id number] Ethyl Esters (Lovaza) 1 gm PO BID [facility] Last Admin: 04/10/17 18:13 Dose: 1 gm Ondansetron HCl (Zofran Inj) 4 mg IVP Q6 PRN PRN Reason: Nausea/Vomiting Pantoprazole Sodium (Protonix Inj) 40 mg IVP DAILY [facility] Last Admin: 04/10/17 10:34 Dose: 40 mg Saccharomyces Boulardii (Florastor) 250 mg PO BID [facility] Last Admin: 04/10/17 18:13 Dose: 250 mg - Labs Labs: 04/10/17 08:38 04/10/17 08:38 Attending/Attestation - Attestation I have personally seen and examined this patient.: Yes I have fully participated in the care of the patient.: Yes I have reviewed all pertinent clinical information, including history, physical exam and plan: Yes Notes (Text): Patient seen, examined, and case discussed with day-time resident. Patient seen this morning with his cert pharmacy tech at bedside. Patient reports abdominal pain, 3-4/10, reports he had a mild bowel movement this morning. Patient completed prune juice and stool softeners. Assessment/Plan 1) Sepsis * Criteria: HR>90, WBC 11.3, and Source: Diverticulitis w microperforation * Lactate 0.8 * Code sepsis not called given normal lactate * Cipro 400mg IV Q12H (Active since 04/08/17) * Flagyl 500mg IV Q8H (active since 04/08/17) * Morphine 2mg IV Q4H PRN * Zofran 4mg IV Q6H PRN * Afebrile * Blood Culture (04/07): no growth after 48hours X2 * Urine culture (04/07): no growth 2) Diverticulitis with perforation * Surgical consult: Dr. Salazar, help appreciated * GI Fishing Gear Mechanic: Dr. Son, recs appreciated * Afebrile, WBC: 9.9 * Tolerating full liquid diet * CT A/P w IV contrast (04/07/17): acute diverticulitis with contained performation w/o drainable fluid collection. Follow-up to resolution is recommended. Indeterminate focus within segment 6 of the liver which dedicated US versus contrast enhanced MRI * CT A/P (04/09/17): sigmoid diverticulitis with contained perforation, similar findings seen on the prior tudy; poorly defined right hepatic lesion possibly hemangioma. MRI is suggested for more complete evaluation as clinically indicated, mild ileus, no obstruction. * Cipro 400mg IV Q12H (Active since 04/08/17) * Flagyl 500mg IV Q8H (active since 04/08/17) * Morphine 2mg IV Q4H PRN * Zofran 4mg IV Q6H PRN 3) Constipation * Colace 100 BID * Advocated for Prune Juice to help relieve constipation 4) Leukocytosis * WBC 11.3 on admission with left shift, no bands * Normalized * Cipro 400mg IV Q12H * Flagyl 500mg IV Q8H * Blood Culture (04/07): no growth after 48 hours X2 * Urine culture (04/07): no growth 5) Type Two Diabetes Mellitus * Hgba1c: 8.8 * LDL: 102; HDL: 27, T; Chol: 153 * Home meds: Metformin 500mg PO BID (Held), Glipizide (pt does not know dose) * Pt received IV contrast, so hold Metformin x 48 hrs * On full liquid changed to diabetic clears given elevated sugars >500 this morning * Will start low dose tomas inhibitor * Changed to NS 100cc/hr * RISS * Accuchecks QAC and HS * Hypoglycemia protocol 6) Left inguinal hernia * noted on CT scan; not in incarcerated nor strangulated 7) Liver Foci * CT A/P: Indeterminate liver foci within segment 6 of liver for which US vs contrast MRI is recommended (with liver mass protocol) * US (04/08/17): Right Hepatic lobe lesion, 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 Recommend F/U in 3months. * Patient's GI is on the case 8) Hx of glaucoma * Pt unsure of eye drops, will bring from home-->resident to follow-up medication 9) Proteinuria * UA: 2+ protein and History of diabetes * pt unsure if on TOMAS inhibitor * Will start low dose tomas inhibitor 10) Low HDL * Started on Lovaza 1 gram PO BID to bring up HDL 11) Prophylaxis * Chemical anticoagulation held secondary to possible need for general surgery intervention * SCDs * Protonix 40mg IV Daily Disposition: Will continue to monitor patient's abdominal exam in light of microperforation to avoid macroperforation. Reviewed CT scan. F/u GI and general surgery to determine when patient is stable/for future discharge planning
[2017-04-10] MEDS ORDERED: Potassium Chloride 20 mEq ER Tab PO ONE (18:31)
[2017-04-11] MEDS: metroNIDAZOLE IV 500 mg/100 ml 500 MG/100 ML BAG IVPB SCH ×3 (06:00→21:56)
[2017-04-11 07:19] LABS: BASO % 0.3 % (0.0-2.0); EOS # 0.1 K/uL (0.0-0.7); EOS % 0.9 % (0.0-4.0); HEMATOCRIT 37.7 % (35.0-51.0); LYMPH # 0.9 K/uL (1.0-4.3); LYMPH % 9.8 % (20.0-40.0); MEAN CORPUSCULAR HEMOGLOBIN 29.5 pg (27.0-31.0); MEAN PLATELET VOLUME 9.8 fL (7.2-11.7); MONO # 0.9 K/uL (0.0-0.8); MONO % 9.9 % (0.0-10.0); PLATELET COUNT 265 K/uL (130-400); RED CELL DISTRIBUTION WIDTH 13.5 % (11.5-14.5); WHITE BLOOD COUNT 9.4 K/uL (4.8-10.8)
[2017-04-11 07:24] LABS: MEAN CELL VOLUME 84.4 fL (80.0-94.0)
[2017-04-11 08:11] LABS: ALB/GLOB RATIO 0.9 (1.0-2.1); ALKALINE PHOSPHATASE 91 U/L (38-126); ALT/SGPT 43 U/L (21-72); AST/SGOT 23 U/L (17-59); BILIRUBIN,TOTAL 0.5 mg/dL (0.2-1.3); BLOOD UREA NITROGEN 8 mg/dL (9-20); CALCIUM 8.3 mg/dl (8.6-10.4); CARBON DIOXIDE 27 mmol/L (22-30); CHLORIDE 97 mmol/L (98-107); GFR AFRICAN-AMERICAN > 60; GLUCOSE,RANDOM 163 mg/dL (75-110); POTASSIUM 3.9 mmol/L (3.6-5.2); SODIUM 133 mmol/L (132-148); TOTAL PROTEIN 6.9 g/dL (6.3-8.3)
[2017-04-11] MEDS: (Novolin R) Insulin Human Regular 100 units/ml vial SC SCH ×4 (09:07→21:57)
[2017-04-11 09:20] LABS: EOSINOPHIL 1 % (0-4); NEUTROPHIL 76 % (50-75); TOTAL CELLS COUNTED 100
[2017-04-11] MEDS: Sodium Chloride 0.9% 1,000 ML IV SCH ×2 (09:54→19:30)
[2017-04-11] MEDS: Saccharomyces Boulardi 250 mg Cap PO SCH ×2 (09:55→18:22)
[2017-04-11] MEDS: Omega-3-Acid Ethyl Esters 1 GM Cap PO SCH ×2 (09:56→18:22)
[2017-04-11] MEDS: Ciprofloxacin 400mg/200ml D5W 400 MG/200 ML BAG IVPB SCH ×2 (11:08→23:27)
--- NOTE | 2017-04-11 15:18 | CP.PCM.PN ---
<Anjelica Feldman - Last Filed: 04/11/17 15:14> Subjective - Date & Time of Evaluation Date of Evaluation: 04/11/17 Time of Evaluation: 07:30 - Subjective Subjective: Medicine note for Dr. Allison Patient seen and examined at bedside. Patient says he is feeling much better today however he is still having LLQ pain with BMs and he is not producing much when having BMs. Patient says he inspects for blood and denies hematochezia and melena. Patient is asking about the results of his most recent abdominal CT scan and when he can go home. He denies fever, chills, chest pain, SOB, N&V, diarrhea, calf pain, and LE swelling. This afternoon I saw the patient again at bedside wih Dr. Allison and the CT results were discussed. Patient was informed he would need to stay until all teams were in agreement that he is safe to be discharged. Objective - Vital Signs/Intake and Output Vital Signs (last 24 hours): Temp Pulse Resp BP Pulse Ox 98.1 F 77 20 133/72 97 04/11/17 07:52 04/11/17 07:52 04/11/17 07:52 04/11/17 07:52 04/11/17 07:52 Intake and Output: 04/11/17 04/11/17 06:59 18:59 Intake Total 1200 1000 Balance 1200 1000 - Medications Medications: Current Medications Docusate Sodium (Colace) 100 mg PO BID [facility] Last Admin: 04/11/17 09:55 Dose: 100 mg Ciprofloxacin (Cipro 400mg/200ml Dsw) 400 mg in 200 mls @ 133 mls/hr IVPB Q12H [facility] Last Admin: 04/11/17 11:08 Dose: 133 mls/hr Metronidazole (Flagyl) 500 mg in 100 mls @ 100 mls/hr IVPB Q8 [facility] Last Admin: 04/11/17 14:45 Dose: 100 mls/hr Sodium Chloride (Sodium Chloride 0.9%) 1,000 mls @ 100 mls/hr IV .Q10H [facility] Last Admin: 04/11/17 09:54 Dose: 100 mls/hr Insulin Human Regular (Novolin R) 0 unit SC ACHS [facility] PRN Reason: Protocol Last Admin: 04/11/17 11:36 Dose: 3 unit Lisinopril (Zestril) 2.5 mg PO DAILY [facility] Last Admin: 04/11/17 09:56 Dose: 2.5 mg Morphine Sulfate (Morphine) 2 mg IVP Q4 PRN PRN Reason: Pain, moderate (4-7) [id number] Ethyl Esters (Lovaza) 1 gm PO BID [facility] Last Admin: 04/11/17 09:56 Dose: 1 gm Ondansetron HCl (Zofran Inj) 4 mg IVP Q6 PRN PRN Reason: Nausea/Vomiting Pantoprazole Sodium (Protonix Inj) 40 mg IVP DAILY [facility] Last Admin: 04/11/17 10:52 Dose: 40 mg Saccharomyces Boulardii (Florastor) 250 mg PO BID [facility] Last Admin: 04/11/17 09:55 Dose: 250 mg - Labs Labs: 04/11/17 07:14 04/11/17 07:14 - Additional Findings Additional findings: - Constitutional Appears: No Acute Distress - Head Exam Head Exam: ATRAUMATIC, NORMOCEPHALIC - Eye Exam Eye Exam: EOMI, PERRL - Respiratory Exam Respiratory Exam: NORMAL BREATHING PATTERN. CTA b/l. absent: Rales, Rhonchi, Wheezes - Cardiovascular Exam Cardiovascular Exam: REGULAR RHYTHM, +S1, +S2. absent: Gallop, Rubs, Systolic Murmur - GI/Abdominal Exam GI & Abdominal Exam: Soft, Tenderness (LLQ). absent: Mass, Organomegaly, Guarding - Extremities Exam Extremities exam: Negative for: calf tenderness, pedal edema - Skin Exam Skin exam: Warm. Dry. Intact. Assessment and Plan - Assessment and Plan (Free Text) Plan: Sepsis (Resolved) Criteria: HR>90, WBC 11.3 Source: Diverticulitis w perforation Lactate 0.8 Cipro 400mg IV Q12H Flagyl 500mg IV Q8H Morphine 2mg IV Q4H PRN Zofran 4mg IV Q4H PRN Blood and Urine Culture NEGATIVE x 48 hrs Diverticulitis with perforation Admit to med/surg Afebrile, WBC: 11.3 FLD. Advance as tolerated. Surgical consult: Dr. 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 Please see full report for more details. Lipase 16 Cipro 400mg IV Q12H Flagyl 500mg IV Q8H Morphine 2mg IV Q4H PRN Zofran 4mg IV Q4H PRN Hemoccult negative at bedside Constipation Colace 100 BID Prune Juice. Leukocytosis (Resolved) WBC 11.3 on admission with left shift, no bands Cipro 400mg IV Q12H Flagyl 500mg IV Q8H Type Two Diabetes Mellitus (Stable) Home meds: Metformin 500mg PO BID (Held), Glipizide (pt does not know dose) Pt received IV contrast, so hold Metformin x 48 hrs Pt NPO so holding both PO diabetes meds D5/1/2 NS @ 80cc/hr RADHA Accuchecks Hypoglycemia protocol Left inguinal hernia CT A/P: acute diverticulitis of sigmoid colon with contained perforation, without a drainable fluid collection; fat containing left inguinal hernia asymptomatic f/u with surgery team if become incarcerated Liver Foci CT A/P: Indeterminate liver foci within segment 6 of liver for which US vs contrast MRI is recommended (with liver mass protocol) US (04/08/17): Right Hepatic lobe lesion, 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 Recommend F /U in 3months. Hx of glaucoma Pt unsure of eye drops, will bring from home Proteinuria UA: 2+ protein History of diabetes - pt unsure if on TOMAS inhibitor - will bring home meds Prophylaxis Heparin (Held at this time due to chance of emergent surgical procedure) SCDs Protonix 40mg IV Daily Dispo: Will need to follow up on patients home meds. Pharmacy was called and there was no mention of gluacoma medication. Patient will need a 3 month follow up for liver lobe lesion found on 04/08/17. <Bonny Allison V - Last Filed: 04/13/17 11:58> Objective - Vital Signs/Intake and Output Vital Signs (last 24 hours): Temp Pulse Resp BP Pulse Ox 97.8 F 68 18 117/66 98 04/13/17 00:14 04/13/17 00:14 04/13/17 00:14 04/13/17 00:14 04/13/17 00:14 Intake and Output: 04/13/17 04/13/17 06:59 18:59 Intake Total 2140 Output Total 800 Balance 1340 - Medications Medications: Current Medications Docusate Sodium (Colace) 100 mg PO BID [facility] Last Admin: 04/12/17 17:48 Dose: 100 mg Ciprofloxacin (Cipro 400mg/200ml Dsw) 400 mg in 200 mls @ 133 mls/hr IVPB Q12H [facility] Last Admin: 04/13/17 00:13 Dose: 133 mls/hr Metronidazole (Flagyl) 500 mg in 100 mls @ 100 mls/hr IVPB Q8 [facility] Last Admin: 04/13/17 05:45 Dose: 100 mls/hr Sodium Chloride (Sodium Chloride 0.9%) 1,000 mls @ 100 mls/hr IV .Q10H [facility] Last Admin: 04/13/17 05:48 Dose: 100 mls/hr Insulin Glargine (Lantus) 12 unit SC HS [facility] Insulin Human Regular (Novolin R) 0 unit SC ACHS [facility] PRN Reason: Protocol Last Admin: 04/13/17 08:26 Dose: 3 unit Lisinopril (Zestril) 2.5 mg PO DAILY [facility] Last Admin: 04/12/17 10:10 Dose: 2.5 mg Morphine Sulfate (Morphine) 2 mg IVP Q4 PRN PRN Reason: Pain, moderate (4-7) [id number] Ethyl Esters (Lovaza) 1 gm PO BID [facility] Last Admin: 04/12/17 17:49 Dose: 1 gm Ondansetron HCl (Zofran Inj) 4 mg IVP Q6 PRN PRN Reason: Nausea/Vomiting Pantoprazole Sodium (Protonix Inj) 40 mg IVP DAILY [facility] Last Admin: 04/12/17 10:10 Dose: 40 mg Saccharomyces Boulardii (Florastor) 250 mg PO BID [facility] Last Admin: 04/12/17 17:48 Dose: 250 mg - Labs Labs: 04/13/17 08:23 04/13/17 08:23 Attending/Attestation - Attestation I have personally seen and examined this patient.: Yes I have fully participated in the care of the patient.: Yes I have reviewed all pertinent clinical information, including history, physical exam and plan: Yes Notes (Text): This is late computer entry for 04/11/17. Patient seen, examined, and case discussed with day-time resident Patient seen this afternoon. Patient was quite upset this morning; wondering why he wasn't seen yet until afternoon. Resident had saw the patient in the morning; in the morning; there were emergencies I had to attend to prevent me seeing the patient sooner, which I explained to the patient at bedside. I discussed the CT scan results with the patient at bedside. Patient continues to report LLQ abdominal pain, 3-09/02, reports he had a mild bowel movement this morning. Explained to patient at bedside, to not exert while using the bathroom. Patient is reporting small bowel movements. Will continue to monitor the patient. GI and general surgery on boarding following the patient Assessment/Plan 1) Sepsis * Criteria: HR>90, WBC 11.3, and Source: Diverticulitis w microperforation * White count has normalized * Lactate 0.8 * Code sepsis not called given normal lactate * Cipro 400mg IV Q12H (Active since 04/08/17) * Flagyl 500mg IV Q8H (active since 04/08/17) * Morphine 2mg IV Q4H PRN * Zofran 4mg IV Q6H PRN * Afebrile * Blood Culture (04/07): no growth * Urine culture (04/07): no growth 2) Diverticulitis with perforation * Surgical consult: Dr. 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 Follow-up to resolution is recommended. Indeterminate focus within segment 6 of the liver which dedicated US versus contrast enhanced MRI * CT A/P (04/09/17): sigmoid diverticulitis with contained perforation, similar findings seen on the prior tudy; poorly defined right hepatic lesion possibly hemangioma. MRI is suggested for more complete evaluation as clinically indicated, mild ileus, no obstruction. * Cipro 400mg IV Q12H (Active since 04/08/17) * Flagyl 500mg IV Q8H (active since 04/08/17) * Morphine 2mg IV Q4H PRN * Zofran 4mg IV Q6H PRN 3) Constipation * Colace 100 BID * Advocated for Prune Juice to help relieve constipation 4) Leukocytosis * WBC 11.3 on admission with left shift, no bands * Normalized * Cipro 400mg IV Q12H * Flagyl 500mg IV Q8H * Blood Culture (04/07): no growth after 48 hours X2 * Urine culture (04/07): no growth 5) Type Two Diabetes Mellitus * Hgba1c: 8.8 * LDL: 102; HDL: 27, T; Chol: 153 * Home meds: Metformin 500mg PO BID (Held), Glipizide (pt does not know dose) * Pt received IV contrast, so hold Metformin x 48 hrs * On full liquid changed to diabetic clears * On dose tomas inhibitor * Changed to NS 100cc/hr * RISS * Accuchecks QAC and HS * Hypoglycemia protocol 6) Left inguinal hernia * noted on CT scan; not in incarcerated nor strangulated 7) Liver Foci * CT A/P: Indeterminate liver foci within segment 6 of liver for which US vs contrast MRI is recommended (with liver mass protocol) * US (04/08/17): Right Hepatic lobe lesion, 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 Recommend F/U in 3months. * Patient's GI is on the case 8) Hx of glaucoma * Pt unsure of eye drops, will bring from home-->resident to follow-up medication 9) Proteinuria * UA: 2+ protein and History of diabetes * On low dose tomas inhibitor 10) Low HDL * Started on Lovaza 1 gram PO BID to bring up HDL 11) Prophylaxis * Chemical anticoagulation held secondary to possible need for general surgery intervention * SCDs * Protonix 40mg IV Daily Disposition: Will continue to monitor patient's abdominal exam in light of microperforation to avoid macroperforation. Reviewed and discussed CT scan. F/u GI and general surgery to determine when patient is stable/for future discharge planning
--- NOTE | 2017-04-11 19:54 | CP.PCM.PN ---
Subjective - Date & Time of Evaluation Date of Evaluation: 04/11/17 Time of Evaluation: 19:51 - Subjective Subjective: Patient still has LLQ pain, less severe than on admission. He denies having nausea or vomiting. He had a small, soft bowel movement today. Objective - Vital Signs/Intake and Output Vital Signs (last 24 hours): Temp Pulse Resp BP Pulse Ox 98.0 F 85 20 136/73 98 04/11/17 15:00 04/11/17 15:00 04/11/17 15:00 04/11/17 15:00 04/11/17 15:22 Intake and Output: 04/11/17 04/12/17 18:59 06:59 Intake Total 2280 Output Total 900 Balance 1380 - Medications Medications: Current Medications Docusate Sodium (Colace) 100 mg PO BID [facility] Last Admin: 04/11/17 18:22 Dose: 100 mg Ciprofloxacin (Cipro 400mg/200ml Dsw) 400 mg in 200 mls @ 133 mls/hr IVPB Q12H [facility] Last Admin: 04/11/17 11:08 Dose: 133 mls/hr Metronidazole (Flagyl) 500 mg in 100 mls @ 100 mls/hr IVPB Q8 [facility] Last Admin: 04/11/17 14:45 Dose: 100 mls/hr Sodium Chloride (Sodium Chloride 0.9%) 1,000 mls @ 100 mls/hr IV .Q10H [facility] Last Admin: 04/11/17 09:54 Dose: 100 mls/hr Insulin Human Regular (Novolin R) 0 unit SC ACHS [facility] PRN Reason: Protocol Last Admin: 04/11/17 17:10 Dose: 3 unit Lisinopril (Zestril) 2.5 mg PO DAILY [facility] Last Admin: 04/11/17 09:56 Dose: 2.5 mg Morphine Sulfate (Morphine) 2 mg IVP Q4 PRN PRN Reason: Pain, moderate (4-7) [id number] Ethyl Esters (Lovaza) 1 gm PO BID [facility] Last Admin: 04/11/17 18:22 Dose: 1 gm Ondansetron HCl (Zofran Inj) 4 mg IVP Q6 PRN PRN Reason: Nausea/Vomiting Pantoprazole Sodium (Protonix Inj) 40 mg IVP DAILY [facility] Last Admin: 04/11/17 10:52 Dose: 40 mg Saccharomyces Pawandii (Florastor) 250 mg PO BID [facility] Last Admin: 04/11/17 18:22 Dose: 250 mg - Labs Labs: 04/11/17 07:14 04/11/17 07:14 - Constitutional Appears: No Acute Distress - Head Exam Head Exam: ATRAUMATIC, NORMOCEPHALIC - Eye Exam Eye Exam: EOMI, PERRL - Neck Exam Neck Exam: absent: Lymphadenopathy, Thyromegaly - Respiratory Exam Respiratory Exam: NORMAL BREATHING PATTERN. absent: Rales, Rhonchi, Wheezes - Cardiovascular Exam Cardiovascular Exam: REGULAR RHYTHM, +S1, +S2. absent: Gallop, Rubs, Murmur - GI/Abdominal Exam GI & Abdominal Exam: Soft, Tenderness, Normal Bowel Sounds. absent: Organomegaly Additional comments: LLQ tenderness to palpation - Rectal Exam Rectal Exam: Deferred - Extremities Exam Extremities Exam: absent: Calf Tenderness, Pedal Edema Assessment and Plan (1) Diverticulitis of colon with perforation Assessment & Plan: Patient continues to show LLQ tenderness. The amount of air on CT scan seems to have increased, though the WBC count has improved slightly. Will continue antibiotics and repeat CT scan next week. Status: Acute
[2017-04-12] MEDS: Sodium Chloride 0.9% 1,000 ML IV SCH ×3 (04:37→17:51)
[2017-04-12] MEDS: metroNIDAZOLE IV 500 mg/100 ml 500 MG/100 ML BAG IVPB SCH ×3 (05:05→22:09)
[2017-04-12 06:48] LABS: BASO # 0.1 K/uL (0.0-0.2); BASO % 0.6 % (0.0-2.0); EOS # 0.1 K/uL (0.0-0.7); EOS % 0.7 % (0.0-4.0); HEMATOCRIT 37.3 % (35.0-51.0); LYMPH # 1.2 K/uL (1.0-4.3); LYMPH % 11.2 % (20.0-40.0); MEAN CELL VOLUME 84.6 fL (80.0-94.0); MEAN CORPUSCULAR HEMOGLOBIN 29.4 pg (27.0-31.0); MEAN CORPUSCULAR HGB CONC 34.7 g/dL (33.0-37.0); MEAN PLATELET VOLUME 9.8 fL (7.2-11.7); MONO % 9.8 % (0.0-10.0); RED CELL DISTRIBUTION WIDTH 13.5 % (11.5-14.5); WHITE BLOOD COUNT 10.5 K/uL (4.8-10.8)
[2017-04-12 07:21] LABS: BLOOD UREA NITROGEN 8 mg/dL (9-20); CALCIUM 7.9 mg/dl (8.6-10.4); CARBON DIOXIDE 24 mmol/L (22-30); CHLORIDE 97 mmol/L (98-107); GFR AFRICAN-AMERICAN > 60; GLUCOSE,RANDOM 191 mg/dL (75-110); SODIUM 132 mmol/L (132-148); TOTAL PROTEIN 6.3 g/dL (6.3-8.3)
[2017-04-12 07:22] LABS: ALB/GLOB RATIO 1.2 (1.0-2.1); ALKALINE PHOSPHATASE 103 U/L (38-126); ALT/SGPT 34 U/L (21-72); AST/SGOT 26 U/L (17-59); BILIRUBIN,TOTAL 0.7 mg/dL (0.2-1.3)
--- NOTE | 2017-04-12 07:57 | CP.PCM.PN ---
<Anjelica Feldman - Last Filed: 04/12/17 12:30> Subjective - Date & Time of Evaluation Date of Evaluation: 04/12/17 Time of Evaluation: 07:57 - Subjective Subjective: Patient seen and examined at bedside. Patient resting comfortably in bed with no new complaints at this time. Patient says he had a BM this morning and the first time it was hard small round pieces that caused LLQ pain to pass but then shortly after he had painless, nonbloody diarrhea. He denies fever, chills, chest pain, SOB, N&V, diarrhea, calf pain, and LE swelling. Objective - Vital Signs/Intake and Output Vital Signs (last 24 hours): Temp Pulse Resp BP Pulse Ox 98.4 F 73 20 150/76 99 04/11/17 23:56 04/11/17 23:56 04/11/17 23:56 04/11/17 23:56 04/11/17 23:56 Intake and Output: 04/12/17 04/12/17 06:59 18:59 Intake Total 2200 Output Total 850 Balance 1350 - Medications Medications: Current Medications Docusate Sodium (Colace) 100 mg PO BID [facility] Last Admin: 04/11/17 18:22 Dose: 100 mg Ciprofloxacin (Cipro 400mg/200ml Dsw) 400 mg in 200 mls @ 133 mls/hr IVPB Q12H [facility] Last Admin: 04/11/17 23:27 Dose: 133 mls/hr Metronidazole (Flagyl) 500 mg in 100 mls @ 100 mls/hr IVPB Q8 [facility] Last Admin: 04/12/17 05:05 Dose: 100 mls/hr Sodium Chloride (Sodium Chloride 0.9%) 1,000 mls @ 100 mls/hr IV .Q10H [facility] Last Admin: 04/12/17 04:37 Dose: Not Given Insulin Human Regular (Novolin R) 0 unit SC ACHS [facility] PRN Reason: Protocol Last Admin: 04/11/17 21:57 Dose: Not Given Lisinopril (Zestril) 2.5 mg PO DAILY [facility] Last Admin: 04/11/17 09:56 Dose: 2.5 mg Morphine Sulfate (Morphine) 2 mg IVP Q4 PRN PRN Reason: Pain, moderate (4-7) [id number] Ethyl Esters (Lovaza) 1 gm PO BID [facility] Last Admin: 04/11/17 18:22 Dose: 1 gm Ondansetron HCl (Zofran Inj) 4 mg IVP Q6 PRN PRN Reason: Nausea/Vomiting Pantoprazole Sodium (Protonix Inj) 40 mg IVP DAILY [facility] Last Admin: 04/11/17 10:52 Dose: 40 mg Saccharomyces Boulardii (Florastor) 250 mg PO BID [facility] Last Admin: 04/11/17 18:22 Dose: 250 mg - Labs Labs: 04/12/17 06:35 04/12/17 06:35 - Additional Findings Additional findings: - Constitutional Appears: No Acute Distress - Head Exam Head Exam: ATRAUMATIC, NORMOCEPHALIC - Eye Exam Eye Exam: EOMI, PERRL - Respiratory Exam Respiratory Exam: NORMAL BREATHING PATTERN. CTA b/l. absent: Rales, Rhonchi, Wheezes - Cardiovascular Exam Cardiovascular Exam: REGULAR RHYTHM, +S1, +S2. absent: Gallop, Rubs, Systolic Murmur - GI/Abdominal Exam GI & Abdominal Exam: Soft, Tenderness (LLQ). absent: Mass, Organomegaly, Guarding - Extremities Exam Extremities exam: Negative for: calf tenderness, pedal edema - Skin Exam Skin exam: Warm. Dry. Intact. Assessment and Plan - Assessment and Plan (Free Text) Plan: Sepsis (Resolved) Criteria: HR>90, WBC 11.3 Source: Diverticulitis w perforation Lactate 0.8 Cipro 400mg IV Q12H Flagyl 500mg IV Q8H Morphine 2mg IV Q4H PRN Zofran 4mg IV Q4H PRN Blood and Urine Culture NEGATIVE x 48 hrs Diverticulitis with perforation Admit to med/surg Afebrile, WBC: 11.3 FLD. Advance as tolerated. Surgical consult: Dr. 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 Please see full report for more details. Lipase 16 Cipro 400mg IV Q12H Flagyl 500mg IV Q8H Morphine 2mg IV Q4H PRN Zofran 4mg IV Q4H PRN Hemoccult negative at bedside Constipation Colace 100 BID [employer]. Leukocytosis (Resolved) WBC 11.3 on admission with left shift, no bands Cipro 400mg IV Q12H Flagyl 500mg IV Q8H Type Two Diabetes Mellitus (Stable) Home meds: Metformin 500mg PO BID (Held), Glipizide (pt does not know dose) Pt received IV contrast, so hold Metformin x 48 hrs Pt NPO so holding both PO diabetes meds D5//2 NS @ 80cc/hr RADHA Accuchecks Hypoglycemia protocol Left inguinal hernia CT A/P: acute diverticulitis of sigmoid colon with contained perforation, without a drainable fluid collection; fat containing left inguinal hernia asymptomatic f/u with surgery team if become incarcerated Liver Foci CT A/P: Indeterminate liver foci within segment 6 of liver for which US vs contrast MRI is recommended (with liver mass protocol) US (04/08/17): Right Hepatic lobe lesion, 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 Recommend F /U in 3months. Hx of glaucoma Pt unsure of eye drops, will bring from home Proteinuria UA: 2+ protein History of diabetes - pt unsure if on TOMAS inhibitor - will bring home meds Prophylaxis Heparin (Held at this time due to chance of emergent surgical procedure) SCDs Protonix 40mg IV Daily Dispo: Will need a follow up CT abdomen and pelvis next week per GI to follow progress of diverticula with microperforation. Patient will need a 3 month follow up for liver lobe lesion found on 04/08/17. <Jie Albright - Last Filed: 04/12/17 15:32> Objective - Vital Signs/Intake and Output Vital Signs (last 24 hours): Temp Pulse Resp BP Pulse Ox 98.4 F 83 21 120/68 96 04/12/17 08:09 04/12/17 08:09 04/12/17 08:09 04/12/17 08:09 04/12/17 08:09 Intake and Output: 04/12/17 04/12/17 06:59 18:59 Intake Total 2200 Output Total 850 Balance 1350 - Medications Medications: Current Medications Docusate Sodium (Colace) 100 mg PO BID [facility] Last Admin: 04/12/17 10:10 Dose: 100 mg Ciprofloxacin (Cipro 400mg/200ml Dsw) 400 mg in 200 mls @ 133 mls/hr IVPB Q12H [facility] Last Admin: 04/12/17 11:13 Dose: Not Given Metronidazole (Flagyl) 500 mg in 100 mls @ 100 mls/hr IVPB Q8 [facility] Last Admin: 04/12/17 14:18 Dose: 100 mls/hr Sodium Chloride (Sodium Chloride 0.9%) 1,000 mls @ 100 mls/hr IV .Q10H [facility] Last Admin: 04/12/17 04:37 Dose: Not Given Insulin Human Regular (Novolin R) 0 unit SC ACHS [facility] PRN Reason: Protocol Last Admin: 04/12/17 12:24 Dose: 2 unit Lisinopril (Zestril) 2.5 mg PO DAILY [facility] Last Admin: 04/12/17 10:10 Dose: 2.5 mg Morphine Sulfate (Morphine) 2 mg IVP Q4 PRN PRN Reason: Pain, moderate (4-7) [id number]-[id number] Ethyl Esters (Lovaza) 1 gm PO BID [facility] Last Admin: 04/12/17 10:10 Dose: 1 gm Ondansetron HCl (Zofran Inj) 4 mg IVP Q6 PRN PRN Reason: Nausea/Vomiting Pantoprazole Sodium (Protonix Inj) 40 mg IVP DAILY [facility] Last Admin: 04/12/17 10:10 Dose: 40 mg Saccharomyces Boulardii (Florastor) 250 mg PO BID [facility] Last Admin: 04/12/17 10:10 Dose: 250 mg - Labs Labs: 04/12/17 06:35 04/12/17 06:35 Attending/Attestation - Attestation I have personally seen and examined this patient.: Yes I have fully participated in the care of the patient.: Yes I have reviewed all pertinent clinical information, including history, physical exam and plan: Yes Notes (Text): Patient was seen and examined,s/p BM,feels better Abdomen soft,mild LLQ discomfort,no fever,tolerate liquids I agree with the resident's documentation of the assessment and the plan
[2017-04-12] MEDS: (Novolin R) Insulin Human Regular 100 units/ml vial SC SCH ×4 (08:09→22:10)
[2017-04-12] MEDS: Saccharomyces Boulardi 250 mg Cap PO SCH ×2 (10:10→17:48)
[2017-04-12] MEDS: Omega-3-Acid Ethyl Esters 1 GM Cap PO SCH ×2 (10:10→17:49)
[2017-04-12] MEDS: Ciprofloxacin 400mg/200ml D5W 400 MG/200 ML BAG IVPB SCH ×2 (10:11→11:13)
--- NOTE | 2017-04-12 11:40 | CP.PCM.PN ---
Subjective - Date & Time of Evaluation Date of Evaluation: 04/12/17 Time of Evaluation: 11:37 - Subjective Subjective: Covering Dr Son CC: abdominal pain Severe LLQ pain this morning when having BM, radiated up left side of abdomen, followed by lane of loose BM then pain resolved and has not recurred. Objective - Vital Signs/Intake and Output Vital Signs (last 24 hours): Temp Pulse Resp BP Pulse Ox 98.4 F 83 21 120/68 96 04/12/17 08:09 04/12/17 08:09 04/12/17 08:09 04/12/17 08:09 04/12/17 08:09 Intake and Output: 04/12/17 04/12/17 06:59 18:59 Intake Total 2200 Output Total 850 Balance 1350 - Medications Medications: Current Medications Docusate Sodium (Colace) 100 mg PO BID [facility] Last Admin: 04/12/17 10:10 Dose: 100 mg Ciprofloxacin (Cipro 400mg/200ml Dsw) 400 mg in 200 mls @ 133 mls/hr IVPB Q12H [facility] Last Admin: 04/12/17 11:13 Dose: Not Given Metronidazole (Flagyl) 500 mg in 100 mls @ 100 mls/hr IVPB Q8 [facility] Last Admin: 04/12/17 05:05 Dose: 100 mls/hr Sodium Chloride (Sodium Chloride 0.9%) 1,000 mls @ 100 mls/hr IV .Q10H [facility] Last Admin: 04/12/17 04:37 Dose: Not Given Insulin Human Regular (Novolin R) 0 unit SC ACHS [facility] PRN Reason: Protocol Last Admin: 04/12/17 08:09 Dose: 1 unit Lisinopril (Zestril) 2.5 mg PO DAILY [facility] Last Admin: 04/12/17 10:10 Dose: 2.5 mg Morphine Sulfate (Morphine) 2 mg IVP Q4 PRN PRN Reason: Pain, moderate (4-7) [id number]-[id number] Ethyl Esters (Lovaza) 1 gm PO BID [facility] Last Admin: 04/12/17 10:10 Dose: 1 gm Ondansetron HCl (Zofran Inj) 4 mg IVP Q6 PRN PRN Reason: Nausea/Vomiting Pantoprazole Sodium (Protonix Inj) 40 mg IVP DAILY [facility] Last Admin: 04/12/17 10:10 Dose: 40 mg Saccharomyces Boulardii (Florastor) 250 mg PO BID [facility] Last Admin: 04/12/17 10:10 Dose: 250 mg - Labs Labs: 04/12/17 06:35 04/12/17 06:35 - Constitutional Appears: Well, No Acute Distress - Head Exam Head Exam: NORMOCEPHALIC - Eye Exam Eye Exam: absent: Scleral icterus - ENT Exam ENT Exam: Normal Exam - Respiratory Exam Respiratory Exam: Clear to Ausculation Bilateral - Cardiovascular Exam Cardiovascular Exam: REGULAR RHYTHM - GI/Abdominal Exam GI & Abdominal Exam: Soft, Normal Bowel Sounds. absent: Tenderness, Mass - Neurological Exam Neurological Exam: Alert, Oriented x3 - Psychiatric Exam Psychiatric exam: Normal Mood Assessment and Plan (1) Diverticulitis large intestine Assessment & Plan: Clinically improving Continue IV antibiotics Monitor abdominal exam Status: Acute
[2017-04-12] MEDS ORDERED: (Lantus) Insulin Glargine, Recombinant SC SCH (22:00)
[2017-04-13] MEDS: Ciprofloxacin 400mg/200ml D5W 400 MG/200 ML BAG IVPB SCH ×3 (00:13→23:23)
[2017-04-13] MEDS: Sodium Chloride 0.9% 1,000 ML IV SCH ×5 (00:45→22:19)
[2017-04-13] MEDS: metroNIDAZOLE IV 500 mg/100 ml 500 MG/100 ML BAG IVPB SCH ×3 (05:45→22:14)
[2017-04-13] MEDS: (Novolin R) Insulin Human Regular 100 units/ml vial SC SCH ×4 (08:26→22:15)
[2017-04-13 08:41] LABS: BASO # 0.1 K/uL (0.0-0.2); BASO % 0.7 % (0.0-2.0); EOS # 0.1 K/uL (0.0-0.7); EOS % 0.6 % (0.0-4.0); HEMATOCRIT 39.2 % (35.0-51.0); LYMPH # 0.9 K/uL (1.0-4.3); MEAN CELL VOLUME 85.8 fL (80.0-94.0); MEAN CORPUSCULAR HEMOGLOBIN 29.1 pg (27.0-31.0); MEAN CORPUSCULAR HGB CONC 33.9 g/dL (33.0-37.0); MEAN PLATELET VOLUME 9.7 fL (7.2-11.7); MONO % 9.3 % (0.0-10.0); PLATELET COUNT 306 K/uL (130-400); RED CELL DISTRIBUTION WIDTH 13.5 % (11.5-14.5); WHITE BLOOD COUNT 10.4 K/uL (4.8-10.8)
[2017-04-13 08:57] LABS: ALB/GLOB RATIO 1.2 (1.0-2.1); ALKALINE PHOSPHATASE 100 U/L (38-126); ALT/SGPT 36 U/L (21-72); AST/SGOT 16 U/L (17-59); BILIRUBIN,TOTAL 0.7 mg/dL (0.2-1.3); BLOOD UREA NITROGEN 8 mg/dL (9-20); CARBON DIOXIDE 25 mmol/L (22-30); CHLORIDE 97 mmol/L (98-107); GFR AFRICAN-AMERICAN > 60; GLUCOSE,RANDOM 229 mg/dL (75-110); POTASSIUM 3.8 mmol/L (3.6-5.2); SODIUM 131 mmol/L (132-148); TOTAL PROTEIN 6.2 g/dL (6.3-8.3)
[2017-04-13] MEDS: Saccharomyces Boulardi 250 mg Cap PO SCH ×2 (10:00→17:07)
--- NOTE | 2017-04-13 10:21 | CP.PCM.PN ---
<Anjelica Feldman - Last Filed: 04/13/17 11:33> Subjective - Date & Time of Evaluation Date of Evaluation: 04/13/17 Time of Evaluation: 10:21 - Subjective Subjective: Medicine note for Dr. Allison Patient seen and examined at bedside. Patient resting comfortably in bed with no new complaints at this time. Patient says he had a bowel movement this morning that was loose and caused pain in the LLQ as usual. Patient says the pain was not any better or worse than it has been when he has a BM. Patient says last night he was brought an extra tuna salad sandwich after his dinner and he was unsure why so he did not eat it because he was not sure if he was supposed to. Patient denies fever, chills, chest pain, SOB, nausea, vomiting, constipation, calf pain, and LE swelling. Objective - Vital Signs/Intake and Output Vital Signs (last 24 hours): Temp Pulse Resp BP Pulse Ox 97.8 F 68 18 117/66 98 04/13/17 00:14 04/13/17 00:14 04/13/17 00:14 04/13/17 00:14 04/13/17 00:14 Intake and Output: 04/13/17 04/13/17 06:59 18:59 Intake Total 2140 Output Total 800 Balance 1340 - Medications Medications: Current Medications Docusate Sodium (Colace) 100 mg PO BID COUNT INCLUDES [facility] Last Admin: 04/12/17 17:48 Dose: 100 mg Ciprofloxacin (Cipro 400mg/200ml Dsw) 400 mg in 200 mls @ 133 mls/hr IVPB Q12H COUNT INCLUDES [facility] Last Admin: 04/13/17 00:13 Dose: 133 mls/hr Metronidazole (Flagyl) 500 mg in 100 mls @ 100 mls/hr IVPB Q8 COUNT INCLUDES [facility] Last Admin: 04/13/17 05:45 Dose: 100 mls/hr Sodium Chloride (Sodium Chloride 0.9%) 1,000 mls @ 100 mls/hr IV .Q10H COUNT INCLUDES THE [facility] Last Admin: 04/13/17 05:48 Dose: 100 mls/hr Insulin Glargine (Lantus) 10 unit SC HS COUNT INCLUDES [facility] Last Admin: 04/12/17 22:09 Dose: 10 unit Insulin Human Regular (Novolin R) 0 unit SC ACHS JOHAN PRN Reason: Protocol Last Admin: 04/13/17 08:26 Dose: 3 unit Lisinopril (Zestril) 2.5 mg PO DAILY COUNT [facility]CLUDES [facility] Last Admin: 04/12/17 10:10 Dose: 2.5 mg Morphine Sulfate (Morphine) 2 mg IVP Q4 PRN PRN Reason: Pain, moderate (4-7) Rnazh-3-Nijy Ethyl Esters (Lovaza) 1 gm PO BID COUNT INCLUDES [facility] Last Admin: 04/12/17 17:49 Dose: 1 gm Ondansetron HCl (Zofran Inj) 4 mg IVP Q6 PRN PRN Reason: Nausea/Vomiting Pantoprazole Sodium (Protonix Inj) 40 mg IVP DAILY COUNT [facility]CLUDES [facility] Last Admin: 04/12/17 10:10 Dose: 40 mg Saccharomyces Boulardii (Florastor) 250 mg PO BID COUNT INCLUDES [facility] Last Admin: 04/12/17 17:48 Dose: 250 mg - Labs Labs: 04/13/17 08:23 04/13/17 08:23 - Additional Findings Additional findings: - Constitutional Appears: No Acute Distress - Head Exam Head Exam: ATRAUMATIC, NORMOCEPHALIC - Eye Exam Eye Exam: EOMI, PERRL - Respiratory Exam Respiratory Exam: NORMAL BREATHING PATTERN. CTA b/l. absent: Rales, Rhonchi, Wheezes - Cardiovascular Exam Cardiovascular Exam: REGULAR RHYTHM, +S1, +S2. absent: Gallop, Rubs, Systolic Murmur - GI/Abdominal Exam GI & Abdominal Exam: Soft, Tenderness (LLQ). absent: Mass, Organomegaly, Guarding - Extremities Exam Extremities exam: Negative for: calf tenderness, pedal edema - Skin Exam Skin exam: Warm. Dry. Intact. Assessment and Plan - Assessment and Plan (Free Text) Plan: Disposition: I ordered a follow up CT abdomen and pelvis with IV contrast for Friday (04/16/17) to follow progress of diverticula with microperforation. Will need to hold Metformin x48 hours. Patient will need a 3 month follow up for liver lobe lesion found on 04/08/17. Sepsis (Resolved) Criteria: HR>90, WBC 11.3 Source: Diverticulitis w perforation Lactate 0.8 Cipro 400mg IV Q12H Flagyl 500mg IV Q8H Morphine 2mg IV Q4H PRN Zofran 4mg IV Q4H PRN Blood and Urine Culture NEGATIVE x 48 hrs Diverticulitis with perforation Admit to med/surg Afebrile, WBC: 11.3 FLD. Advance as tolerated. Surgical consult: Dr. Salazar, help appreciated GI Sample Card Maker: Dr. 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 Please see full report for more details. Lipase 16 Cipro 400mg IV Q12H Flagyl 500mg IV Q8H Morphine 2mg IV Q4H PRN Zofran 4mg IV Q4H PRN Hemoccult negative at bedside Constipation (Resolved) Colace 100 BID Prune Juice. Leukocytosis (Resolved) WBC 11.3 on admission with left shift, no bands Cipro 400mg IV Q12H Flagyl 500mg IV Q8H Type Two Diabetes Mellitus (Stable) Home meds: Metformin 500mg PO BID (Held), Glipizide (pt does not know dose) Pt received IV contrast, so hold Metformin x 48 hrs Lantus 12 U SC HS D5/1/2 NS @ 80cc/hr RADHA Accuchecks Hypoglycemia protocol Left inguinal hernia CT A/P: acute diverticulitis of sigmoid colon with contained perforation, without a drainable fluid collection; fat containing left inguinal hernia asymptomatic f/u with surgery team if become incarcerated Liver Foci CT A/P: Indeterminate liver foci within segment 6 of liver for which US vs contrast MRI is recommended (with liver mass protocol) US (04/08/17): Right Hepatic lobe lesion, 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 Recommend F /U in 3months. Hx of glaucoma Pt unsure of eye drops, will bring from home Proteinuria UA: 2+ protein History of diabetes - pt unsure if on TOMAS inhibitor - will bring home meds Prophylaxis Heparin (Held at this time due to chance of emergent surgical procedure) SCDs Protonix 40mg IV Daily Discussed with Dr. Estefany Feldman, PGY1 <Bonny Allison V - Last Filed: 04/13/17 12:07> Objective - Vital Signs/Intake and Output Vital Signs (last 24 hours): Temp Pulse Resp BP Pulse Ox 97.8 F 68 18 117/66 98 04/13/17 00:14 04/13/17 00:14 04/13/17 00:14 04/13/17 00:14 04/13/17 00:14 Intake and Output: 04/13/17 04/13/17 06:59 18:59 Intake Total 2140 Output Total 800 Balance 1340 - Medications Medications: Current Medications Docusate Sodium (Colace) 100 mg PO BID COUNT INCLUDES [facility] Last Admin: 04/12/17 17:48 Dose: 100 mg Ciprofloxacin (Cipro 400mg/200ml Dsw) 400 mg in 200 mls @ 133 mls/hr IVPB Q12H COUNT INCLUDES [facility] Last Admin: 04/13/17 00:13 Dose: 133 mls/hr Metronidazole (Flagyl) 500 mg in 100 mls @ 100 mls/hr IVPB Q8 COUNT INCLUDES [facility] Last Admin: 04/13/17 05:45 Dose: 100 mls/hr Sodium Chloride (Sodium Chloride 0.9%) 1,000 mls @ 100 mls/hr IV .Q10H COUNT INCLUDES [facility] Last Admin: 04/13/17 05:48 Dose: 100 mls/hr Insulin Glargine (Lantus) 12 unit SC HS JOHAN Insulin Human Regular (Novolin R) 0 unit SC ACHS JOHAN PRN Reason: Protocol Last Admin: 04/13/17 08:26 Dose: 3 unit Lisinopril (Zestril) 2.5 mg PO DAILY COUNT INCLUDES [facility] Last Admin: 04/12/17 10:10 Dose: 2.5 mg Morphine Sulfate (Morphine) 2 mg IVP Q4 PRN PRN Reason: Pain, moderate (4-7) Owhop-2-Beam Ethyl Esters (Lovaza) 1 gm PO BID COUNT INCLUDES [facility] Last Admin: 04/12/17 17:49 Dose: 1 gm Ondansetron HCl (Zofran Inj) 4 mg IVP Q6 PRN PRN Reason: Nausea/Vomiting Pantoprazole Sodium (Protonix Inj) 40 mg IVP DAILY COUNT INCLUDES [facility] Last Admin: 04/12/17 10:10 Dose: 40 mg Saccharomyces Boulardii (Florastor) 250 mg PO BID COUNT INCLUDES [facility] Last Admin: 04/12/17 17:48 Dose: 250 mg - Labs Labs: 04/13/17 08:23 04/13/17 08:23 Attending/Attestation - Attestation I have personally seen and examined this patient.: Yes I have fully participated in the care of the patient.: Yes I have reviewed all pertinent clinical information, including history, physical exam and plan: Yes Notes (Text): Patient seen, examined, and case discussed with day-time resident Patient seen this morning with son at bedside. Patient reports he had small bowel movement this morning. Patient reports LLQ pain, 3/10, nonradiating. Explained to the patient he will clinically need to be monitor. Discussed with Dr. Plunkett covering Dr. Son, monitor clinically. Dr. Son to come in tomorrow. Will need to see when to repeat next CT scan for the patient. GI and general surgery on boarding following the patient Assessment/Plan 1) Sepsis * Criteria: HR>90, WBC 11.3, and Source: Diverticulitis w microperforation * White count has normalized * Lactate 0.8 * Code sepsis not called given normal lactate * Cipro 400mg IV Q12H (Active since 04/08/17) * Flagyl 500mg IV Q8H (active since 04/08/17) * Morphine 2mg IV Q4H PRN * Zofran 4mg IV Q6H PRN * Afebrile * Blood Culture (04/07): no growth * Urine culture (04/07): no growth 2) Diverticulitis with perforation * Surgical consult: Dr. Salazar, help appreciated * GI Sample Card Maker: Dr. 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 Follow-up to resolution is recommended. Indeterminate focus within segment 6 of the liver which dedicated US versus contrast enhanced MRI * CT A/P (04/09/17): sigmoid diverticulitis with contained perforation, similar findings seen on the prior tudy; poorly defined right hepatic lesion possibly hemangioma. MRI is suggested for more complete evaluation as clinically indicated, mild ileus, no obstruction. * Cipro 400mg IV Q12H (Active since 04/08/17) * Flagyl 500mg IV Q8H (active since 04/08/17) * Morphine 2mg IV Q4H PRN * Zofran 4mg IV Q6H PRN 3) Constipation * Colace 100 TID * Advocated for Prune Juice to help relieve constipation * Patient is having small bowel movements 4) Leukocytosis * WBC 11.3 on admission with left shift, no bands * Normalized * Cipro 400mg IV Q12H * Flagyl 500mg IV Q8H * Blood Culture (04/07): no growth after 5 days X2 * Urine culture (04/07): no growth 5) Type Two Diabetes Mellitus * Hgba1c: 8.8 * LDL: 102; HDL: 27, T; Chol: 153 * Home meds: Metformin 500mg PO BID (Held), Glipizide (pt does not know dose) * Increased to Lantus 12 units subqHS * On full liquid changed to diabetic clears * Lisinopril 2.5mg PO daily * NS 100cc/hr * RISS * Accuchecks QAC and HS * Hypoglycemia protocol 6) Left inguinal hernia * noted on CT scan; not in incarcerated nor strangulated 7) Liver Foci * CT A/P: Indeterminate liver foci within segment 6 of liver for which US vs contrast MRI is recommended (with liver mass protocol) * US (04/08/17): Right Hepatic lobe lesion, 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 Recommend F/U in 3months. * Patient's GI is on the case 8) Hx of glaucoma * Pt unsure of eye drops, will bring from home-->resident to follow-up medication 9) Proteinuria * UA: 2+ protein and History of diabetes * On low dose tomas inhibitor 10) Low HDL * Started on Lovaza 1 gram PO BID to bring up HDL 11) Prophylaxis * Chemical anticoagulation held secondary to possible need for general surgery intervention * SCDs * Protonix 40mg IV Daily Disposition: Will continue to monitor patient's abdominal exam in light of microperforation to avoid macroperforation. F/u GI and general surgery. Patient ordered for repeat CT scan one week from prior scan unless patient has acute change clinically.
[2017-04-13 10:40] LABS: EOSINOPHIL 1 % (0-4); NEUTROPHIL 83 % (50-75); TOTAL CELLS COUNTED 100
--- NOTE | 2017-04-13 11:08 | CP.PCM.PN ---
Subjective - Date & Time of Evaluation Date of Evaluation: 04/13/17 Time of Evaluation: 11:06 - Subjective Subjective: CC; LLQ pain when pressing the area, otherwise no pain. No leukocytosis or fever. Objective - Vital Signs/Intake and Output Vital Signs (last 24 hours): Temp Pulse Resp BP Pulse Ox 97.8 F 68 18 117/66 98 04/13/17 00:14 04/13/17 00:14 04/13/17 00:14 04/13/17 00:14 04/13/17 00:14 Intake and Output: 04/13/17 04/13/17 06:59 18:59 Intake Total 2140 Output Total 800 Balance 1340 - Medications Medications: Current Medications Docusate Sodium (Colace) 100 mg PO BID [facility] Last Admin: 04/12/17 17:48 Dose: 100 mg Ciprofloxacin (Cipro 400mg/200ml Dsw) 400 mg in 200 mls @ 133 mls/hr IVPB Q12H [facility] Last Admin: 04/13/17 00:13 Dose: 133 mls/hr Metronidazole (Flagyl) 500 mg in 100 mls @ 100 mls/hr IVPB Q8 [facility] Last Admin: 04/13/17 05:45 Dose: 100 mls/hr Sodium Chloride (Sodium Chloride 0.9%) 1,000 mls @ 100 mls/hr IV .Q10H [facility] Last Admin: 04/13/17 05:48 Dose: 100 mls/hr Insulin Glargine (Lantus) 12 unit SC HS [facility] Insulin Human Regular (Novolin R) 0 unit SC ACHS JOHAN PRN Reason: Protocol Last Admin: 04/13/17 08:26 Dose: 3 unit Lisinopril (Zestril) 2.5 mg PO DAILY [facility] Last Admin: 04/12/17 10:10 Dose: 2.5 mg Morphine Sulfate (Morphine) 2 mg IVP Q4 PRN PRN Reason: Pain, moderate (4-7) Qfeyn-2-Nchy Ethyl Esters (Lovaza) 1 gm PO BID [facility] Last Admin: 04/12/17 17:49 Dose: 1 gm Ondansetron HCl (Zofran Inj) 4 mg IVP Q6 PRN PRN Reason: Nausea/Vomiting Pantoprazole Sodium (Protonix Inj) 40 mg IVP DAILY [facility] Last Admin: 04/12/17 10:10 Dose: 40 mg Saccharomyces Boulardii (Florastor) 250 mg PO BID JOHAN Last Admin: 04/12/17 17:48 Dose: 250 mg - Labs Labs: 04/13/17 08:23 04/13/17 08:23 - Constitutional Appears: Well, No Acute Distress - Head Exam Head Exam: NORMOCEPHALIC - Respiratory Exam Respiratory Exam: Clear to Ausculation Bilateral - Cardiovascular Exam Cardiovascular Exam: REGULAR RHYTHM - GI/Abdominal Exam GI & Abdominal Exam: Soft. absent: Guarding, Rigid, Tenderness, Mass, Rebound Assessment and Plan (1) Diverticulitis large intestine Assessment & Plan: Gradually improving with conservative therapy Rec; Continue antibiotics and monitor clinical status Status: Acute
[2017-04-13] MEDS: Omega-3-Acid Ethyl Esters 1 GM Cap PO SCH ×2 (12:55→17:08)
[2017-04-13] MEDS: ALPHAGAN OU SCH (19:35)
[2017-04-13] MEDS: (Lantus) Insulin Glargine, Recombinant SC SCH (22:16)
[2017-04-14] MEDS: metroNIDAZOLE IV 500 mg/100 ml 500 MG/100 ML BAG IVPB SCH ×3 (05:22→21:13)
[2017-04-14] MEDS: (Novolin R) Insulin Human Regular 100 units/ml vial SC SCH ×4 (07:30→21:15)
[2017-04-14 07:39] LABS: BASO % 0.5 % (0.0-2.0); EOS # 0.1 K/uL (0.0-0.7); EOS % 1.8 % (0.0-4.0); HEMATOCRIT 37.2 % (35.0-51.0); LYMPH % 16.7 % (20.0-40.0); MEAN CELL VOLUME 85.4 fL (80.0-94.0); MEAN CORPUSCULAR HEMOGLOBIN 29.3 pg (27.0-31.0); MEAN CORPUSCULAR HGB CONC 34.3 g/dL (33.0-37.0); MEAN PLATELET VOLUME 9.9 fL (7.2-11.7); MONO # 0.6 K/uL (0.0-0.8); MONO % 10.6 % (0.0-10.0); NRBC % 0.3 % (0.0-2.0); RED CELL DISTRIBUTION WIDTH 13.8 % (11.5-14.5); WHITE BLOOD COUNT 5.7 K/uL (4.8-10.8)
[2017-04-14 08:03] LABS: ALB/GLOB RATIO 1.2 (1.0-2.1); ALKALINE PHOSPHATASE 85 U/L (38-126); ALT/SGPT 35 U/L (21-72); AST/SGOT 18 U/L (17-59); BILIRUBIN,TOTAL 0.6 mg/dL (0.2-1.3); BLOOD UREA NITROGEN 8 mg/dL (9-20); CARBON DIOXIDE 25 mmol/L (22-30); CHLORIDE 99 mmol/L (98-107); GFR AFRICAN-AMERICAN > 60; GLUCOSE,RANDOM 141 mg/dL (75-110); MAGNESIUM 1.6 mg/dL (1.6-2.3); PHOSPHOROUS 3.4 mg/dL (2.5-4.5); POTASSIUM 3.9 mmol/L (3.6-5.2); SODIUM 133 mmol/L (132-148); TOTAL PROTEIN 6.1 g/dL (6.3-8.3)
--- NOTE | 2017-04-14 09:25 | CP.PCM.PN ---
Subjective - Date & Time of Evaluation Date of Evaluation: 04/14/17 Time of Evaluation: 09:25 - Subjective Subjective: Progress Note for Dr. Beasley Patient seen and examined at bedside. Patient denies any abdominal pain and proceeds to palpate his own abdomen. Patient states he has soft stool that is brown or jaswinder colored at times. PAtient states he has watery or soft stool at times. Patient states he does not have any nausea, vomiting, fever, chills, abdominal pain, hematochezia, melena. Objective - Vital Signs/Intake and Output Vital Signs (last 24 hours): Temp Pulse Resp BP Pulse Ox 98.0 F 67 20 129/66 98 04/14/17 08:00 04/14/17 08:00 04/14/17 08:00 04/14/17 08:00 04/14/17 08:00 Intake and Output: 04/14/17 04/14/17 06:59 18:59 Intake Total 2150 Balance 2150 - Medications Medications: Current Medications Docusate Sodium (Colace) 100 mg PO TID [facility] Last Admin: 04/13/17 17:07 Dose: 100 mg Home Med (Patient's Own Drops) 1 drop OU DAILY [facility] Last Admin: 04/13/17 19:35 Dose: 1 drop Ciprofloxacin (Cipro 400mg/200ml Dsw) 400 mg in 200 mls @ 133 mls/hr IVPB Q12H [facility] Last Admin: 04/13/17 23:23 Dose: 133 mls/hr Metronidazole (Flagyl) 500 mg in 100 mls @ 100 mls/hr IVPB Q8 [facility] Last Admin: 04/14/17 05:22 Dose: 100 mls/hr Sodium Chloride (Sodium Chloride 0.9%) 1,000 mls @ 100 mls/hr IV .Q10H [facility] Last Admin: 04/13/17 22:19 Dose: 100 mls/hr Insulin Glargine (Lantus) 12 unit SC HS [facility] Last Admin: 04/13/17 22:16 Dose: Not Given Insulin Human Regular (Novolin R) 0 unit SC ACHS [facility] PRN Reason: Protocol Last Admin: 04/13/17 22:15 Dose: Not Given Lisinopril (Zestril) 2.5 mg PO DAILY [facility] Last Admin: 04/13/17 10:00 Dose: 2.5 mg Morphine Sulfate (Morphine) 2 mg IVP Q4 PRN PRN Reason: Pain, moderate (4-7) Iuxfx-6-Ymnu Ethyl Esters (Lovaza) 1 gm PO BID [facility] Last Admin: 04/13/17 17:08 Dose: 1 gm Ondansetron HCl (Zofran Inj) 4 mg IVP Q6 PRN PRN Reason: Nausea/Vomiting Pantoprazole Sodium (Protonix Inj) 40 mg IVP DAILY [facility] Last Admin: 04/13/17 10:00 Dose: 40 mg Saccharomyces Boulardii (Florastor) 250 mg PO BID [facility] Last Admin: 04/13/17 17:07 Dose: 250 mg - Labs Labs: 04/14/17 07:14 04/14/17 07:14 - Constitutional Appears: Non-toxic - Head Exam Head Exam: NORMAL INSPECTION - Eye Exam Eye Exam: EOMI, Normal appearance - ENT Exam ENT Exam: Mucous Membranes Moist - Neck Exam Neck Exam: Full ROM - Respiratory Exam Respiratory Exam: Clear to Ausculation Bilateral, NORMAL BREATHING PATTERN. absent: Accessory Muscle Use - Cardiovascular Exam Cardiovascular Exam: +S1, +S2. absent: Bradycardia, Tachycardia - GI/Abdominal Exam GI & Abdominal Exam: Soft - Extremities Exam Extremities Exam: Full ROM. absent: Normal Inspection - Back Exam Back Exam: NORMAL INSPECTION - Neurological Exam Neurological Exam: Awake - Psychiatric Exam Psychiatric exam: Normal Affect, Normal Mood - Skin Skin Exam: Dry, Intact Assessment and Plan - Assessment and Plan (Free Text) Assessment: Disposition: Follow up CT abdomen and pelvis with IV contrast for Friday () to follow progress of diverticula with microperforation. Metformin held x48 hours. Patient will need a 3 month follow up for liver lobe lesion found on 04/08/17. Sepsis (Resolved) Criteria: HR>90, WBC 11.3 Source: Diverticulitis w perforation Lactate 0.8 Cipro 400mg IV Q12H Flagyl 500mg IV Q8H Morphine 2mg IV Q4H PRN Zofran 4mg IV Q4H PRN Blood and Urine Culture NEGATIVE x 48 hrs Diverticulitis with perforation Admitted to med/surg Afebrile, WBC: 11.3 FLD. Advance as tolerated. Surgical consult: Dr. Salazar, help appreciated GI Freelance Recruiter: Dr. 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 Please see full report for more details. Lipase 16 Cipro 400mg IV Q12H Flagyl 500mg IV Q8H Morphine 2mg IV Q4H PRN Zofran 4mg IV Q4H PRN FOBT at bedside - negative Constipation (Resolved) Colace 100 BID Prune Juice. Leukocytosis (Resolved) WBC 11.3 on admission with left shift, no bands Cipro 400mg IV Q12H Flagyl 500mg IV Q8H Type Two Diabetes Mellitus (Stable) Home meds: Metformin 500mg PO BID (Held), Glipizide (pt does not know dose) Pt received IV contrast, so hold Metformin x 48 hrs Lantus 12 U SC HS NS @ 100cc/hr RADHA Accuchecks Hypoglycemia protocol Left inguinal hernia CT A/P: acute diverticulitis of sigmoid colon with contained perforation, without a drainable fluid collection; fat containing left inguinal hernia asymptomatic f/u with surgery team if become incarcerated Liver Foci CT A/P: Indeterminate liver foci within segment 6 of liver for which US vs contrast MRI is recommended (with liver mass protocol) US (04/08/17): Right Hepatic lobe lesion, 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 Recommend F /U in 3months. Hx of glaucoma Pt unsure of eye drops, will bring from home Proteinuria UA: 2+ protein History of diabetes - pt unsure if on TOMAS inhibitor - will bring home meds Diet: FLD Prophylaxis Heparin (Held at this time due to chance of emergent surgical procedure) SCDs Protonix 40mg IV Daily Discussed with Dr. Ramos Nava, PGY1
[2017-04-14] MEDS: Omega-3-Acid Ethyl Esters 1 GM Cap PO SCH ×2 (11:21→17:36)
[2017-04-14] MEDS: Saccharomyces Boulardi 250 mg Cap PO SCH ×2 (11:21→17:36)
[2017-04-14] MEDS: Ciprofloxacin 400mg/200ml D5W 400 MG/200 ML BAG IVPB SCH ×2 (11:26→23:43)
[2017-04-14] MEDS: ALPHAGAN OU SCH (11:29)
[2017-04-14] MEDS: Sodium Chloride 0.9% 1,000 ML IV SCH (18:55)
[2017-04-14] MEDS: (Lantus) Insulin Glargine, Recombinant SC SCH (21:14)
[2017-04-15] MEDS: Sodium Chloride 0.9% 1,000 ML IV SCH ×2 (02:41→09:09)
[2017-04-15] MEDS: metroNIDAZOLE IV 500 mg/100 ml 500 MG/100 ML BAG IVPB SCH ×3 (05:28→21:25)
[2017-04-15 07:41] LABS: EOS # 0.1 K/uL (0.0-0.7); EOS % 2.2 % (0.0-4.0); HEMATOCRIT 38.3 % (35.0-51.0); LYMPH # 0.9 K/uL (1.0-4.3); LYMPH % 23.1 % (20.0-40.0); MEAN CELL VOLUME 85.4 fL (80.0-94.0); MEAN CORPUSCULAR HEMOGLOBIN 29.2 pg (27.0-31.0); MEAN CORPUSCULAR HGB CONC 34.2 g/dL (33.0-37.0); MEAN PLATELET VOLUME 9.6 fL (7.2-11.7); MONO # 0.5 K/uL (0.0-0.8); MONO % 12.6 % (0.0-10.0); NRBC % 0.1 % (0.0-2.0); RED CELL DISTRIBUTION WIDTH 13.4 % (11.5-14.5); WHITE BLOOD COUNT 3.8 K/uL (4.8-10.8)
[2017-04-15 08:20] LABS: ALB/GLOB RATIO 1.2 (1.0-2.1); ALKALINE PHOSPHATASE 81 U/L (38-126); ALT/SGPT 40 U/L (21-72); AST/SGOT 19 U/L (17-59); BILIRUBIN,TOTAL 0.5 mg/dL (0.2-1.3); BLOOD UREA NITROGEN 7 mg/dL (9-20); CARBON DIOXIDE 26 mmol/L (22-30); CHLORIDE 100 mmol/L (98-107); GFR AFRICAN-AMERICAN > 60; GLUCOSE,RANDOM 150 mg/dL (75-110); MAGNESIUM 1.6 mg/dL (1.6-2.3); PHOSPHOROUS 3.1 mg/dL (2.5-4.5); POTASSIUM 3.8 mmol/L (3.6-5.2); SODIUM 134 mmol/L (132-148)
[2017-04-15] MEDS: (Novolin R) Insulin Human Regular 100 units/ml vial SC SCH ×4 (08:30→21:25)
[2017-04-15] MEDS: Ciprofloxacin 400mg/200ml D5W 400 MG/200 ML BAG IVPB SCH ×3 (09:13→23:39)
[2017-04-15] MEDS: Saccharomyces Boulardi 250 mg Cap PO SCH ×2 (09:14→17:29)
[2017-04-15] MEDS: Omega-3-Acid Ethyl Esters 1 GM Cap PO SCH ×2 (09:14→17:30)
[2017-04-15] MEDS: ALPHAGAN OU SCH (09:14)
--- NOTE | 2017-04-15 09:49 | CP.PCM.PN ---
Subjective - Date & Time of Evaluation Date of Evaluation: 04/15/17 Time of Evaluation: 09:50 - Subjective Subjective: Progress Note Patient seen and examined at bedside. No acute events overnight. Patient states he tolerated addition of Glucerna. Patient denies fever, chills, abdominal pain , difficulty urination, chest pain and shortness of breath. Objective - Vital Signs/Intake and Output Vital Signs (last 24 hours): Temp Pulse Resp BP Pulse Ox 98.2 F 69 20 145/75 100 04/15/17 00:42 04/15/17 00:42 04/15/17 00:42 04/15/17 00:42 04/15/17 00:42 Intake and Output: 04/15/17 04/15/17 06:59 18:59 Intake Total 1040 Output Total 600 Balance 440 - Medications Medications: Current Medications Docusate Sodium (Colace) 100 mg PO TID [facility] Last Admin: 04/15/17 09:14 Dose: 100 mg Home Med (Patient's Own Drops) 1 drop OU DAILY [facility] Last Admin: 04/15/17 09:14 Dose: 1 drop Ciprofloxacin (Cipro 400mg/200ml Dsw) 400 mg in 200 mls @ 133 mls/hr IVPB Q12H JOHAN Last Admin: 04/15/17 09:13 Dose: 133 mls/hr Metronidazole (Flagyl) 500 mg in 100 mls @ 100 mls/hr IVPB Q8 [facility] Last Admin: 04/15/17 05:28 Dose: 100 mls/hr Sodium Chloride (Sodium Chloride 0.9%) 1,000 mls @ 100 mls/hr IV .Q10H [facility] Last Admin: 04/15/17 09:09 Dose: 100 mls/hr Insulin Glargine (Lantus) 12 unit SC HS [facility] Last Admin: 04/14/17 21:14 Dose: 12 units Insulin Human Regular (Novolin R) 0 unit SC ACHS JOAHN PRN Reason: Protocol Last Admin: 04/15/17 08:30 Dose: 3 unit Lisinopril (Zestril) 2.5 mg PO DAILY [facility] Last Admin: 04/15/17 09:14 Dose: 2.5 mg Morphine Sulfate (Morphine) 2 mg IVP Q4 PRN PRN Reason: Pain, moderate (4-7) [id number] Ethyl Esters (Lovaza) 1 gm PO BID [facility] Last Admin: 04/15/17 09:14 Dose: 1 gm Ondansetron HCl (Zofran Inj) 4 mg IVP Q6 PRN PRN Reason: Nausea/Vomiting Pantoprazole Sodium (Protonix Inj) 40 mg IVP DAILY [facility] Last Admin: 04/15/17 09:14 Dose: 40 mg Saccharomyces Boulardii (Florastor) 250 mg PO BID [facility] Last Admin: 04/15/17 09:14 Dose: 250 mg - Labs Labs: 04/15/17 07:29 04/15/17 07:29 - Constitutional Appears: Non-toxic - Head Exam Head Exam: NORMAL INSPECTION - Eye Exam Eye Exam: EOMI, Normal appearance - ENT Exam ENT Exam: Mucous Membranes Moist - Neck Exam Neck Exam: Full ROM - Respiratory Exam Respiratory Exam: absent: Accessory Muscle Use, Decreased Breath Sounds, Respiratory Distress - Cardiovascular Exam Cardiovascular Exam: REGULAR RHYTHM, +S1, +S2 - GI/Abdominal Exam GI & Abdominal Exam: Guarding (minimal involuntary guarding upon palpation of LLQ), Soft. absent: Distended, Tenderness - Exam Exam: NORMAL INSPECTION - Extremities Exam Extremities Exam: Full ROM. absent: Pedal Edema - Neurological Exam Neurological Exam: Alert, Awake - Psychiatric Exam Psychiatric exam: Normal Affect, Normal Mood - Skin Skin Exam: Dry, Intact Assessment and Plan - Assessment and Plan (Free Text) Assessment: Disposition: Follow up CT abdomen and pelvis with IV contrast for Friday () to follow progress of diverticula with microperforation. Metformin held x48 hours. Patient will need a 3 month follow up for liver lobe lesion found on 04/08/17. 04/15 CT abdomen pelvis with PO/IV contrast: improvement compared to previous CT scan of abdomen and pelvis. Sepsis (Resolved) Criteria: HR>90, WBC 11.3 Source: Diverticulitis w perforation Lactate 0.8 Cipro 400mg IV Q12H Flagyl 500mg IV Q8H Morphine 2mg IV Q4H PRN Zofran 4mg IV Q4H PRN Blood and Urine Culture NEGATIVE x 48 hrs Diverticulitis with perforation Admitted to med/surg Afebrile, WBC: 11.3 FLD. Advance as tolerated. Surgical consult: Dr. Salazar, help appreciated GI Assistant Case Manager: Dr. 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 Please see full report for more details. Lipase 16 Cipro 400mg IV Q12H Flagyl 500mg IV Q8H Morphine 2mg IV Q4H PRN Zofran 4mg IV Q4H PRN FOBT at bedside - negative Constipation (Resolved) Colace 100 BID Prune Juice. Leukocytosis (Resolved) WBC 11.3 on admission with left shift, no bands Cipro 400mg IV Q12H Flagyl 500mg IV Q8H Type Two Diabetes Mellitus (Stable) Home meds: Metformin 500mg PO BID (Held), Glipizide (pt does not know dose) Pt received IV contrast, so hold Metformin x 48 hrs Lantus 12 U SC HS NS @ 100cc/hr RADHA Accuchecks Hypoglycemia protocol Left inguinal hernia CT A/P: acute diverticulitis of sigmoid colon with contained perforation, without a drainable fluid collection; fat containing left inguinal hernia asymptomatic f/u with surgery team if become incarcerated Liver Foci CT A/P: Indeterminate liver foci within segment 6 of liver for which US vs contrast MRI is recommended (with liver mass protocol) US (04/08/17): Right Hepatic lobe lesion, 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 Recommend F /U in 3months. Hx of glaucoma Pt unsure of eye drops, will bring from home Proteinuria UA: 2+ protein History of diabetes - pt unsure if on TOMAS inhibitor - will bring home meds Diet: advanced to regular for dinner today. Patient tolerated diet Prophylaxis Heparin (Held at this time due to chance of emergent surgical procedure) SCDs Protonix 40mg IV Daily Discussed with Dr. Ramos Nava, PGY1
--- NOTE | 2017-04-15 10:54 | CP.PCM.PN ---
Subjective - Date & Time of Evaluation Date of Evaluation: 04/15/17 Time of Evaluation: 10:51 - Subjective Subjective: Patient states that pain has resolved. He denies having nausea or vomiting. He had one large, soft bowel movement today. He wants to go home. Objective - Vital Signs/Intake and Output Vital Signs (last 24 hours): Temp Pulse Resp BP Pulse Ox 98.0 F 85 18 125/70 99 04/15/17 08:00 04/15/17 08:00 04/15/17 08:00 04/15/17 08:00 04/15/17 08:00 Intake and Output: 04/15/17 04/15/17 06:59 18:59 Intake Total 1040 Output Total 600 Balance 440 - Medications Medications: Current Medications Docusate Sodium (Colace) 100 mg PO TID [facility] Last Admin: 04/15/17 09:14 Dose: 100 mg Home Med (Patient's Own Drops) 1 drop OU DAILY [facility] Last Admin: 04/15/17 09:14 Dose: 1 drop Ciprofloxacin (Cipro 400mg/200ml Dsw) 400 mg in 200 mls @ 133 mls/hr IVPB Q12H [facility] Last Admin: 04/15/17 09:13 Dose: 133 mls/hr Metronidazole (Flagyl) 500 mg in 100 mls @ 100 mls/hr IVPB Q8 [facility] Last Admin: 04/15/17 05:28 Dose: 100 mls/hr Insulin Glargine (Lantus) 12 unit SC HS [facility] Last Admin: 04/14/17 21:14 Dose: 12 units Insulin Human Regular (Novolin R) 0 unit SC ACHS [facility] PRN Reason: Protocol Last Admin: 04/15/17 08:30 Dose: 3 unit Lisinopril (Zestril) 2.5 mg PO DAILY [facility] Last Admin: 04/15/17 09:14 Dose: 2.5 mg Morphine Sulfate (Morphine) 2 mg IVP Q4 PRN PRN Reason: Pain, moderate (4-7) [id number] Ethyl Esters (Lovaza) 1 gm PO BID [facility] Last Admin: 04/15/17 09:14 Dose: 1 gm Ondansetron HCl (Zofran Inj) 4 mg IVP Q6 PRN PRN Reason: Nausea/Vomiting Pantoprazole Sodium (Protonix Inj) 40 mg IVP DAILY [facility] Last Admin: 04/15/17 09:14 Dose: 40 mg Saccharomyces Pawandii (Florastor) 250 mg PO BID [facility] Last Admin: 04/15/17 09:14 Dose: 250 mg - Labs Labs: 04/15/17 07:29 04/15/17 07:29 - Constitutional Appears: No Acute Distress - Head Exam Head Exam: ATRAUMATIC, NORMOCEPHALIC - Eye Exam Eye Exam: EOMI, PERRL - Neck Exam Neck Exam: absent: Lymphadenopathy, Thyromegaly - Respiratory Exam Respiratory Exam: NORMAL BREATHING PATTERN. absent: Rales, Rhonchi, Wheezes - Cardiovascular Exam Cardiovascular Exam: REGULAR RHYTHM, +S1, +S2. absent: Gallop, Rubs, Murmur - GI/Abdominal Exam GI & Abdominal Exam: Soft, Normal Bowel Sounds. absent: Tenderness, Organomegaly - Rectal Exam Rectal Exam: Deferred - Extremities Exam Extremities Exam: absent: Calf Tenderness, Pedal Edema Assessment and Plan (1) Diverticulitis of colon with perforation Assessment & Plan: Patient is feeling better, and indicated that he wants to eat and to go home for Thanksgiving. To that end, we will move the repeat CT scan up to this afternoon. Status: Acute
[2017-04-15] MEDS ORDERED: Iohexol 240 (50 ml) PO ONE ×2 (13:00→14:00)
[2017-04-15] MEDS ORDERED: Iodixanol 320 mg/ml 150 ml Bottle IV ONE (14:49)
--- NOTE | 2017-04-15 16:05 | CT ---
PROCEDURE: CT Abdomen and Pelvis with contrast HISTORY: Follow up diverticulitis, perforation COMPARISON: Comparison is made to the previous study dated 04/09/2017 TECHNIQUE: Contrast dose: 100 mL Visipaque 320. Axial and reformatted coronal and sagittal CT images of the abdomen and pelvis were obtained after IV and oral contrast administration Radiation dose: Total exam DLP = 325.85 mGy-cm. This CT exam was performed using one or more of the following dose reduction techniques: Automated exposure control, adjustment of the mA and/or kV according to patient size, and/or use of iterative reconstruction technique. FINDINGS: LOWER THORAX: Unremarkable. LIVER: Re- demonstration of peripherally enhancing lesion at the right liver lobe image 22 series 2 may represent hemangioma. If clinically warranted further assessment by MRI may be obtained. There is also poorly defined lesion at the upper portion of the right liver lobe/liver dome demonstrate small enhancement image 12 series 2. GALLBLADDER AND BILE DUCTS: Unremarkable. PANCREAS: Unremarkable. No gross lesion or ductal dilatation. SPLEEN: Unremarkable. ADRENALS: Unremarkable. No mass. KIDNEYS AND URETERS: Unremarkable. No hydronephrosis. No solid mass. VASCULATURE: Diffuse wall thickening of the abdominal aorta and main artery branches noted. Foci of moderate to severe stenosis noted at the left common iliac artery. . No aortic aneurysm. BOWEL: Again seen are scattered colonic diverticulosis. There are moderate inflammatory changes surrounding the proximal sigmoid colon. There is interval decrease in the size of the previously described focal localized perforation compared to the previous exam seen adjacent to the proximal sigmoid colon image 114 series 3. There is short segment of proximal sigmoid colon wall thickening. . No evidence of small bowel obstruction. APPENDIX: Normal appendix. PERITONEUM: Unremarkable. No free fluid. No free air. LYMPH NODES: Unremarkable. No enlarged lymph nodes. BLADDER: Mild urinary bladder wall thickening is noted. REPRODUCTIVE: The prostate is moderately to markedly enlarged protruding into the bladder lumen. BONES: No acute fracture. OTHER FINDINGS: None. IMPRESSION: Interval mild improvement in the previously seen inflammatory changes surrounding the sigmoid colon. Persistent findings consistent with diverticulitis. Interval decrease in the size of the previously noted localized perforation adjacent to the proximal sigmoid colon. Re- demonstration of short segment of proximal sigmoid colon wall thickening. Findings could be due to acute inflammatory process. The possibility of underlying neoplasm is not totally excluded. Follow-up reassessment of the large bowel after the acute phase of diverticulitis is suggested. No evidence of free air or drainable fluid collection. Otherwise no significant interval change compared to the previous exam as described above.
--- NOTE | 2017-04-15 16:20 | CP.PCM.DIS ---
<Fern Nava - Last Filed: 04/16/17 11:54> Provider - Provider Date of Admission: 04/07/17 22:30 Attending physician: Gerald Beasley MD Consults: DEIDRE Son Surgery Consult: Dr. Salazar Time Spent in preparation of Discharge (in minutes): 35 Hospital Course - Lab Results Lab Results: Micro Results 04/07/17 19:00 Blood Blood Culture - Final NO GROWTH AFTER 5 DAYS 04/07/17 19:00 Blood Gram Stain - Final TEST NOT PERFORMED 04/07/17 18:30 Blood Blood Culture - Final NO GROWTH AFTER 5 DAYS 04/07/17 18:30 Blood Gram Stain - Final TEST NOT PERFORMED 04/07/17 20:00 Urine Urine Culture - Final No Growth (<1,000 CFU/ML) Most Recent Lab Values WBC 3.8 K/uL (4.8-10.8) L 04/15/17 07:29 RBC 4.48 Mil/uL (4.40-5.90) 04/15/17 07:29 Hgb 13.1 g/dL (12.0-18.0) 04/15/17 07:29 Hct 38.3 % (35.0-51.0) 04/15/17 07:29 MCV 85.4 fL (80.0-94.0) 04/15/17 07:29 MCH 29.2 pg (27.0-31.0) 04/15/17 07:29 MCHC 34.2 g/dL (33.0-37.0) 04/15/17 07:29 RDW 13.4 % (11.5-14.5) 04/15/17 07:29 Plt Count 333 K/uL (130-400) 04/15/17 07:29 MPV 9.6 fL (7.2-11.7) 04/15/17 07:29 Neut % (Auto) 61.1 % (50.0-75.0) 04/15/17 07:29 Lymph % (Auto) 23.1 % (20.0-40.0) 04/15/17 07:29 [place] % (Auto) 12.6 % (0.0-10.0) H 04/15/17 07:29 Eos % (Auto) 2.2 % (0.0-4.0) 04/15/17 07:29 Baso % (Auto) 1.0 % (0.0-2.0) 04/15/17 07:29 Neut # 2.3 K/uL (1.8-7.0) 04/15/17 07:29 Lymph # 0.9 K/uL (1.0-4.3) L 04/15/17 07:29 [place] # 0.5 K/uL (0.0-0.8) 04/15/17 07:29 Eos # 0.1 K/uL (0.0-0.7) 04/15/17 07:29 Baso # 0.0 K/uL (0.0-0.2) 04/15/17 07:29 Neutrophils % (Manual) 83 % (50-75) H 04/13/17 08:23 Band Neutrophils % 1 % (0-2) 04/09/17 07:49 Lymphocytes % (Manual) 9 % (20-40) L 04/13/17 08:23 Monocytes % (Manual) 7 % (0-10) 04/13/17 08:23 Eosinophils % (Manual) 1 % (0-4) 04/13/17 08:23 Platelet Estimate Normal (NORMAL) 04/13/17 08:23 RBC Morphology Normal 04/13/17 08:23 pO2 61 mm/Hg (30-55) H 04/08/17 00:41 VBG pH 7.39 (7.32-7.43) 04/08/17 00:41 VBG pCO2 39 mmHg (40-60) L 04/08/17 00:41 VBG HCO3 23.8 mmol/L 04/08/17 00:41 VBG Total CO2 24.8 mmol/L (22-28) 04/08/17 00:41 VBG O2 Sat (Calc) 93.2 % (40-65) H 04/08/17 00:41 VBG Base Excess -1.2 mmol/L (0.0-2.0) L 04/08/17 00:41 VBG Potassium 3.3 mmol/L (3.6-5.2) L 04/08/17 00:41 Sodium 137.0 mmol/l (132-148) 04/08/17 00:41 Chloride 105.0 mmol/L (98-107) 04/08/17 00:41 Glucose 112 mg/dl (75-110) H 04/08/17 00:41 Lactate 0.8 mmol/L (0.7-2.1) 04/08/17 00:41 Sodium 134 mmol/L (132-148) 04/15/17 07:29 Potassium 3.8 mmol/L (3.6-5.2) 04/15/17 07:29 Chloride 100 mmol/L (98-107) 04/15/17 07:29 Carbon Dioxide 26 mmol/L (22-30) 04/15/17 07:29 Anion Gap 12 (10-20) 04/15/17 07:29 BUN 7 mg/dL (9-20) L 04/15/17 07:29 Creatinine 0.7 mg/dL (0.8-1.5) L 04/15/17 07:29 Est GFR ( Amer) > 60 04/15/17 07:29 Est GFR (Non-Af Amer) > 60 04/15/17 07:29 POC Glucose (mg/dL) 154 mg/dL (65-110) H 04/15/17 15:52 Random Glucose 150 mg/dL (75-110) H 04/15/17 07:29 Hemoglobin A1c 8.8 % (4.2-6.5) H 04/08/17 04:52 Calcium 8.0 mg/dl (8.6-10.4) L 04/15/17 07:29 Phosphorus 3.1 mg/dL (2.5-4.5) 04/15/17 07:29 Magnesium 1.6 mg/dL (1.6-2.3) 04/15/17 07:29 Total Bilirubin 0.5 mg/dL (0.2-1.3) 04/15/17 07:29 AST 19 U/L (17-59) 04/15/17 07:29 ALT 40 U/L (21-72) 04/15/17 07:29 Alkaline Phosphatase 81 U/L (38-126) 04/15/17 07:29 Total Protein 6.0 g/dL (6.3-8.3) L 04/15/17 07:29 Albumin 3.2 g/dL (3.5-5.0) L 04/15/17 07:29 Globulin 2.8 gm/dL (2.2-3.9) 04/15/17 07:29 Albumin/Globulin Ratio 1.2 (1.0-2.1) 04/15/17 07:29 Triglycerides 83 mg/dL (0-149) 04/08/17 04:52 Cholesterol 153 mg/dL (0-199) 04/08/17 04:52 LDL Cholesterol Direct 102 mg/dL (0-129) 04/08/17 04:52 HDL Cholesterol 27 mg/dL (30-70) L 04/08/17 04:52 Lipase 16 U/L (23-300) L 04/07/17 19:04 Free T4 1.19 ng/dL (0.78-2.19) 04/08/17 04:52 TSH 3rd Generation 1.10 mIU/L (0.46-4.68) 04/08/17 04:52 Venous Blood Potassium 3.3 mmol/L (3.6-5.2) L 04/08/17 00:41 Urine Color Imelda (YELLOW) 04/07/17 19:14 Urine Clarity Hazy (Clear) 04/07/17 19:14 Urine pH 5.0 (5.0-8.0) 04/07/17 19:14 Ur Specific [place] 1.028 (1.003-1.030) 04/07/17 19:14 Urine Protein 2+ mg/dL (NEGATIVE) H 04/07/17 19:14 Urine Glucose (UA) Normal mg/dL (Normal) 04/07/17 19:14 Urine Ketones 1+ mg/dL (NEGATIVE) H 04/07/17 19:14 Urine Blood Negative (NEGATIVE) 04/07/17 19:14 Urine Nitrate Negative (NEGATIVE) 04/07/17 19:14 Urine Bilirubin Negative (NEGATIVE) 04/07/17 19:14 Urine Urobilinogen 2.0 mg/dL (0.2-1.0) 04/07/17 19:14 Ur Leukocyte Esterase Neg Martir/uL (Negative) 04/07/17 19:14 Urine WBC (Auto) 2 /hpf (0-5) 04/07/17 19:14 Urine RBC (Auto) 4 /hpf (0-3) H 04/07/17 19:14 Urine Bacteria Rare (<OCC) 04/07/17 19:14 Hyaline Casts 6-10 /lpf (0-2) H 04/07/17 19:14 - Hospital Course Hospital Course: CC: "My belly hurts down low on the left" HPI: Patient is a 76 year old AA male, with PMHx of constipation, type two diabetes mellitus and glaucoma, who presents to [facility] (Former[facility]) for abdominal pain at direction of his PMD. Patient reports pain began on Friday while he was at work , and is located in his LLQ with occasional radiation to his lower back. He states the pain originally on Friday would come and go with worst severity as "3 /10." However over the weekend and into Friday the pain gradually became constant and was 8-9/10 this afternoon. He describes the pain as a "dull, aching pain that becomes sharp when you touch it" and admits to "feeling like something is in there." Patient reports long history of constipation, and attempted to ameliorate symptoms by giving himself a fleet enema. He states he moves his bowels "every 2-3 days" and has to really strain to void. He admits last BM was on , and denies blood in stool/toilet paper/or toilet bowl. He admits passing gas today. Patient reports seeing Dr. Son as GI, who performed last colonoscopy in 2015, which showed diverticula. He admits feeling hungry, but states he has not been eating much "because he does not want to make the pain worse." Patient denies any fever, chills, dysuria, hematuria, hematochezia, nausea, vomit, diarrhea, weight loss, or prior episodes of similar kind of pain. Patient denies any trauma to the area or lifting heavy object at work Hospital Course Patient was admitted to the hospital for acute diverticulitis. In the ED, patient was given IV fluid, cipro and flagyl. CT abd/pelvis with IV contrast was done and showed sigmoid colon with acute diverticulitis with a contained perforation without a drainable fluid collection. Surgery consult was placed. Surgery plans were clear liquid diet and continue with IV antibiotics. Abd US was done and showed right hepatic lobe lesion, gallbladder sludge, no stones, no dilated ducts, possible mild diffuse fatty infiltration or other hepatic parenchymal pathology. GI consult was placed and the plans were antibiotics, NPO , and repeat CT scan. CT scan was repeated on 04/09/17 and it showed sigmoid diverticulitis with contained perforation which had similar findings seen on prior study. Patient continued with IV antibiotics and CT scan was repeated later in the week. CT scan was repeated on 04/15/17 and it showed interval mild improvement in the previously seen inflammatory changes surrounding the sigmoid colon. Patient was tolerating diet and was cleared for discharge. Patient was discharged with cipro and flagyl to complete the 3 weeks of antibiotics. Patient is to follow up with GI doctor and PMD within one week, and to return to emergency room if symptoms of abdominal pain, fever, or chills occur. - Date & Time of H&P Date of H&P: 04/16/17 Time of H&P: 11:53 Discharge Exam - Head Exam Head Exam: ATRAUMATIC, NORMOCEPHALIC - Eye Exam Eye Exam: EOMI, Normal appearance - ENT Exam ENT Exam: Mucous Membranes Moist - Cardiovascular Exam Cardiovascular Exam: REGULAR RHYTHM, +S1, +S2 - GI/Abdominal Exam GI & Abdominal Exam: Soft Additional comments: no rebound no tenderness - Extremities Exam Extremities exam: full ROM - Skin Skin Exam: Dry, Normal Color Discharge Plan - Discharge Medications Prescriptions: Ciprofloxacin [Cipro] 500 mg PO BID #28 tab Lactobacillus Acidophilus [Acidophilus] 1 each PO BID #14 tablet RX: Lisinopril [Zestril] 2.5 mg PO DAILY #30 tab metroNIDAZOLE [Flagyl] 500 mg PO Q8H #42 tab Nut.tx.gluc.intoler,Lac-Fr,Soy [Glucerna Therapeutic Nutrition] 237 ml PO TID # 30 liquid - Follow Up Plan Condition: STABLE Disposition: HOME/ ROUTINE Instructions: Ciprofloxacin (By mouth), Metronidazole (By mouth), Probiotic ( By mouth), Diverticulitis (DC) Additional Instructions: patient can leave once tolerating regular diet patient to follow up with GI doctor upon discharge in 1 week patient is to follow up with primary care upon discharge in 1 week return to the Emergency room with any signs of worsening abdominal pain, nausea , vomiting Referrals: Mariusz Sheldon MD [Staff Provider] - Polo Son MD [Staff Provider] - 1 Week (follow-up within 1 week) <Bonny Allison V - Last Filed: 04/16/17 19:11> Provider - Provider Date of Admission: 04/07/17 22:30 Attending physician: Gerald Beasley MD Hospital Course - Lab Results Lab Results: Micro Results 04/07/17 19:00 Blood Blood Culture - Final NO GROWTH AFTER 5 DAYS 04/07/17 19:00 Blood Gram Stain - Final TEST NOT PERFORMED 04/07/17 18:30 Blood Blood Culture - Final NO GROWTH AFTER 5 DAYS 04/07/17 18:30 Blood Gram Stain - Final TEST NOT PERFORMED 04/07/17 20:00 Urine Urine Culture - Final No Growth (<1,000 CFU/ML) Most Recent Lab Values WBC 3.8 K/uL (4.8-10.8) L 04/15/17 07: RBC 4.48 Mil/uL (4.40-5.90) 04/15/17 07:29 Hgb 13.1 g/dL (12.0-18.0) 04/15/17 07: Hct 38.3 % (35.0-51.0) 04/15/17 07: MCV 85.4 fL (80.0-94.0) 04/15/17 07: MCH 29.2 pg (27.0-31.0) 04/15/17 07: MCHC 34.2 g/dL (33.0-37.0) 04/15/17 07: RDW 13.4 % (11.5-14.5) 04/15/17 07:29 Plt Count 333 K/uL (130-400) 04/15/17 07: MPV 9.6 fL (7.2-11.7) 04/15/17 07: Neut % (Auto) 61.1 % (50.0-75.0) 04/15/17 07: Lymph % (Auto) 23.1 % (20.0-40.0) 04/15/17 07: [place] % (Auto) 12.6 % (0.0-10.0) H 04/15/17 07:29 Eos % (Auto) 2.2 % (0.0-4.0) 04/15/17 07:29 Baso % (Auto) 1.0 % (0.0-2.0) 04/15/17 07: Neut # 2.3 K/uL (1.8-7.0) 04/15/17 07:29 Lymph # 0.9 K/uL (1.0-4.3) L 04/15/17 07:29 [place] # 0.5 K/uL (0.0-0.8) 04/15/17 07:29 Eos # 0.1 K/uL (0.0-0.7) 04/15/17 07:29 Baso # 0.0 K/uL (0.0-0.2) 04/15/17 07:29 Neutrophils % (Manual) 83 % (50-75) H 04/13/17 08:23 Band Neutrophils % 1 % (0-2) 04/09/17 07:49 Lymphocytes % (Manual) 9 % (20-40) L 04/13/17 08:23 Monocytes % (Manual) 7 % (0-10) 04/13/17 08:23 Eosinophils % (Manual) 1 % (0-4) 04/13/17 08:23 Platelet Estimate Normal (NORMAL) 04/13/17 08:23 RBC Morphology Normal 04/13/17 08:23 pO2 61 mm/Hg (30-55) H 04/08/17 00:41 VBG pH 7.39 (7.32-7.43) 04/08/17 00:41 VBG pCO2 39 mmHg (40-60) L 04/08/17 00:41 VBG HCO3 23.8 mmol/L 04/08/17 00:41 VBG Total CO2 24.8 mmol/L (22-28) 04/08/17 00:41 VBG O2 Sat (Calc) 93.2 % (40-65) H 04/08/17 00:41 VBG Base Excess -1.2 mmol/L (0.0-2.0) L 04/08/17 00:41 VBG Potassium 3.3 mmol/L (3.6-5.2) L 04/08/17 00:41 Sodium 137.0 mmol/l (132-148) 04/08/17 00:41 Chloride 105.0 mmol/L (98-107) 04/08/17 00:41 Glucose 112 mg/dl (75-110) H 04/08/17 00:41 Lactate 0.8 mmol/L (0.7-2.1) 04/08/17 00:41 Sodium 134 mmol/L (132-148) 04/15/17 07:29 Potassium 3.8 mmol/L (3.6-5.2) 04/15/17 07:29 Chloride 100 mmol/L (98-107) 04/15/17 07:29 Carbon Dioxide 26 mmol/L (22-30) 04/15/17 07:29 Anion Gap 12 (10-20) 04/15/17 07:29 BUN 7 mg/dL (9-20) L 04/15/17 07:29 Creatinine 0.7 mg/dL (0.8-1.5) L 04/15/17 07:29 Est GFR ( Amer) > 60 04/15/17 07:29 Est GFR (Non-Af Amer) > 60 04/15/17 07:29 POC Glucose (mg/dL) 146 mg/dL (65-110) H 04/16/17 07:31 Random Glucose 150 mg/dL (75-110) H 04/15/17 07:29 Hemoglobin A1c 8.8 % (4.2-6.5) H 04/08/17 04:52 Calcium 8.0 mg/dl (8.6-10.4) L 04/15/17 07:29 Phosphorus 3.4 mg/dL (2.5-4.5) 04/16/17 08:28 Magnesium 1.7 mg/dL (1.6-2.3) 04/16/17 08:28 Total Bilirubin 0.5 mg/dL (0.2-1.3) 04/15/17 07:29 AST 19 U/L (17-59) 04/15/17 07:29 ALT 40 U/L (21-72) 04/15/17 07:29 Alkaline Phosphatase 81 U/L (38-126) 04/15/17 07:29 Total Protein 6.0 g/dL (6.3-8.3) L 04/15/17 07:29 Albumin 3.2 g/dL (3.5-5.0) L 04/15/17 07:29 Globulin 2.8 gm/dL (2.2-3.9) 04/15/17 07:29 Albumin/Globulin Ratio 1.2 (1.0-2.1) 04/15/17 07:29 Triglycerides 83 mg/dL (0-149) 04/08/17 04:52 Cholesterol 153 mg/dL (0-199) 04/08/17 04:52 LDL Cholesterol Direct 102 mg/dL (0-129) 04/08/17 04:52 HDL Cholesterol 27 mg/dL (30-70) L 04/08/17 04:52 Lipase 16 U/L (23-300) L 04/07/17 19:04 Free T4 1.19 ng/dL (0.78-2.19) 04/08/17 04:52 TSH 3rd Generation 1.10 mIU/L (0.46-4.68) 04/08/17 04:52 Venous Blood Potassium 3.3 mmol/L (3.6-5.2) L 04/08/17 00:41 Urine Color Imelda (YELLOW) 04/07/17 19:14 Urine Clarity Hazy (Clear) 04/07/17 19:14 Urine pH 5.0 (5.0-8.0) 04/07/17 19:14 Ur Specific [place] 1.028 (1.003-1.030) 04/07/17 19:14 Urine Protein 2+ mg/dL (NEGATIVE) H 04/07/17 19:14 Urine Glucose (UA) Normal mg/dL (Normal) 04/07/17 19:14 Urine Ketones 1+ mg/dL (NEGATIVE) H 04/07/17 19:14 Urine Blood Negative (NEGATIVE) 04/07/17 19:14 Urine Nitrate Negative (NEGATIVE) 04/07/17 19:14 Urine Bilirubin Negative (NEGATIVE) 04/07/17 19:14 Urine Urobilinogen 2.0 mg/dL (0.2-1.0) 04/07/17 19:14 Ur Leukocyte Esterase Neg Martir/uL (Negative) 04/07/17 19:14 Urine WBC (Auto) 2 /hpf (0-5) 04/07/17 19:14 Urine RBC (Auto) 4 /hpf (0-3) H 04/07/17 19:14 Urine Bacteria Rare (<OCC) 04/07/17 19:14 Hyaline Casts 6-10 /lpf (0-2) H 04/07/17 19:14 Discharge Exam - Head Exam Head Exam: NORMAL INSPECTION - Eye Exam Eye Exam: absent: Nystagmus, Scleral icterus - Respiratory Exam Respiratory Exam: Clear to PA & Lateral, NORMAL BREATHING PATTERN. absent: Chest Wall Tenderness, Decreased Breath Sounds, Rales, Rhonchi - GI/Abdominal Exam GI & Abdominal Exam: Normal Bowel Sounds. absent: Diminished Bowel Sounds, Distended, Firm, Guarding, Rebound, Rigid, Tenderness - Extremities Exam Extremities exam: normal capillary refill, pedal pulses present - Back Exam Back exam: absent: CVA tenderness (L), CVA tenderness (R) - Neurological Exam Neurological exam: Alert, Oriented x3 - Psychiatric Exam Psychiatric exam: Normal Affect, Normal Mood - Skin Skin Exam: Intact, Warm Attending/Attestation - Attestation I have personally seen and examined this patient.: Yes I have fully participated in the care of the patient.: Yes I have reviewed all pertinent clinical information, including history, physical exam and plan: Yes Notes (Text): Patient seen, examined, and case discussed with day-time resident Patient seen this morning. Patient denies acute complaints. Patient tolerated regular diet overnight. Patient has no follow-up symptoms. Patient was recommended strongly to advance diet as tolerated especially in light of Thanksgiving. Patient does not drink alcohol and praised to continue that. Discussed with patient's private GI the CT scan which is better; stable for discharge. Recommending for 3 week treatment for diverticulitis and follow-up with him within one week in the office. Discussed discharge order and discharge instructed with day-time resident: 1) Ciprofloxocin 500mg PO BID (14 days) 2) Flagyl 500mg PO TID (14 days) Patient to resume home medications. This is a brief summary of patient's hospitalization. Please see EMR for further details. Discharge Diagnoses: 1) Sepsis-->resolved * Criteria: HR>90, WBC 11.3, and Source: Diverticulitis w microperforation * White count has normalized * Lactate 0.8 * Code sepsis not called given normal lactate * Cipro 400mg IV Q12H (Active since 04/08/17) * Flagyl 500mg IV Q8H (active since 04/08/17) * Upon d/c * 1) Ciprofloxocin 500mg PO BID (14 days) * 2) Flagyl 500mg PO TID (14 days) * Morphine 2mg IV Q4H PRN * Zofran 4mg IV Q6H PRN * Afebrile * Blood Culture (04/07): no growth * Urine culture (04/07): no growth 2) Diverticulitis with microperforation * Surgical consult: Dr. Salazar, help appreciated * GI Agent Broker: Dr. Son, recs appreciated * Tolerating regular diet * CT A/P w IV contrast (04/07/17): acute diverticulitis with contained performation w/o drainable fluid collection. Follow-up to resolution is recommended. Indeterminate focus within segment 6 of the liver which dedicated US versus contrast enhanced MRI * CT A/P (04/09/17): sigmoid diverticulitis with contained perforation, similar findings seen on the prior study; poorly defined right hepatic lesion possibly hemangioma. MRI is suggested for more complete evaluation as clinically indicated, mild ileus, no obstruction. * CT A/P (04/15/17): interval mild improvement in previously seen inflammatory changes surroudning sigmoid colon. Consistent with diverticulitis; Interveral decrease in size noted localized perforation adjacent in proximal sigmoid colon. Redemonstration sigmoid colon wall thcickening. No evidence of free air or drainable fluid collection * Patient has been educated throughout entire hospitalization to beware of severity abdominal pain and if grossly out of proportion; IE if microperforation becomes macroperforation to call for someone immediately/to be evaluated. 3) Constipation * Resolved 4) Leukocytosis * Normalized * Upon d/c * 1) Ciprofloxocin 500mg PO BID (14 days) * 2) Flagyl 500mg PO TID (14 days) * Blood Culture (04/07): no growth after 5 days X2 * Urine culture (04/07): no growth 5) Type Two Diabetes Mellitus * Hgba1c: 8.8 * LDL: 102; HDL: 27, T; Chol: 153 * Home meds: Metformin 500mg PO BID (Held), Glipizide (pt does not know dose) * Increased to Lantus 12 units subqHS * On full liquid changed to diabetic clears * Lisinopril 2.5mg PO daily * NS 100cc/hr * RISS * Accuchecks QAC and HS * Hypoglycemia protocol 6) Left inguinal hernia * noted on CT scan; not in incarcerated nor strangulated 7) Liver Foci * CT A/P: Indeterminate liver foci within segment 6 of liver for which US vs contrast MRI is recommended (with liver mass protocol) * US (04/08/17): Right Hepatic lobe lesion, 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 Recommend F/U in 3months. * Patient's GI is on the case 8) Hx of glaucoma * Pt unsure of eye drops, will bring from home-->resident to follow-up medication 9) Proteinuria * UA: 2+ protein and History of diabetes * On low dose andre inhibitor 10) Low HDL * Started on Lovaza 1 gram PO BID to bring up HDL * Will need OTC fish oil given expense of Lovaza 11) Prophylaxis * Chemical anticoagulation held secondary to possible need for general surgery intervention * SCDs * Protonix 40mg IV Daily.
[2017-04-15 16:57] VITALS: RESP 20
[2017-04-15] MEDS: (Lantus) Insulin Glargine, Recombinant SC SCH (21:24)
[2017-04-16 01:43] VITALS: TEMP 98.4
[2017-04-16] MEDS: metroNIDAZOLE IV 500 mg/100 ml 500 MG/100 ML BAG IVPB SCH (05:10)
[2017-04-16] MEDS: (Novolin R) Insulin Human Regular 100 units/ml vial SC SCH (07:35)
[2017-04-16 08:31] VITALS: BP 157/74; PULSE 90; O2SAT 100
[2017-04-16 08:59] LABS: MAGNESIUM 1.7 mg/dL (1.6-2.3); PHOSPHOROUS 3.4 mg/dL (2.5-4.5)
== END 2017-04-16 11:00 | disposition home or self-care (01) | DRG 872 ==
LOC: C.ER 17:22 → C.9E 22:30 → C.3T 04-08 06:15
PROVIDERS: ADMIT Internal Medicine; ATTEND Internal Medicine
DX: A41.9 Sepsis, unspecified organism (principal); K57.20 Diverticulitis of large intestine with perforation and abscess without bleeding; E11.9 Type 2 diabetes mellitus without complications; R65.20 Severe sepsis without septic shock; K59.00 Constipation, unspecified; H40.9 Unspecified glaucoma; K40.90 Unilateral inguinal hernia, without obstruction or gangrene, not specified as recurrent; R80.9 Proteinuria, unspecified; Z87.891 Personal history of nicotine dependence